=== PATIENT | female | born 1980 | race Caucasian/White ===

== ENCOUNTER 2017-10-23 09:01 | Emergency (ER) | payer SELFPAY ==
[2017-10-23 09:24] VITALS: BMI 23.2
--- NOTE | 2017-10-23 09:55 | PDOC ---
History of Present Illness - General Chief Complaint: Vaginal Bleeding Stated Complaint: 4 WEEKS ABD -PAIN Time Seen by Provider: 10/23/17 09:41 History Source: Patient Exam Limitations: No Limitations - History of Present Illness Travel History: No Initial Comments: 10/23/17 09:52 36-year-old female presents to the ED with painless vaginal bleeding which she states was brownish pink this morning upon urination this morning. Patient states did not pass any large clots and didn't see Gretchen Soto her COAL INSPECTOR last week which confirmed the with your but has not had an ultrasound scheduled for completed as of yet. Patient denies dyspareunia, recent injury, urinary complaints, back pain, or previous vaginal bleeding with pregnancies. Timing/Duration: reports: changing over time Past History - Past Medical History Allergies/Adverse Reactions: Allergies Allergy/AdvReac Type Severity Reaction Status Date / Time No Known Allergies Allergy Verified 10/23/17 09:21 Home Medications: Ambulatory Orders NK [No Known Home Medication] 05/27/16 Asthma: No Cancer: No Cardiac Disorders: No COPD: No DVT: No Diabetes: No HTN: No Seizures: No Thyroid Disease: No - Immunization History Immunization Up to Date: Yes - Suicide/Smoking/Psychosocial Hx Smoking History: Never smoked Have you smoked in the past 12 months: No Information on smoking cessation initiated: No Hx Alcohol Use: No Drug/Substance Use Hx: No Substance Use Type: None Hx Substance Use Treatment: No Patient Lives Alone: No Lives with/in: spouse/SO Review of Systems - Review of Systems Able to Perform ROS?: No Constitutional: No: Symptoms Reported HEENTM: No: Symptoms Reported Respiratory: No: Symptoms reported Cardiac (ROS): No: Symptoms Reported ABD/GI: No: Symptoms Reported : Yes: Discharge. No: Burning, Frequency, Flank Pain Musculoskeletal: No: Symptoms Reported Integumentary: No: Symptoms Reported Neurological: No: Symptoms reported *Physical Exam - Vital Signs Last Vital Signs Temp Pulse Resp BP Pulse Ox 98.4 F 50 L 18 100/56 100 10/23/17 09:21 10/23/17 09:21 10/23/17 09:21 10/23/17 09:21 10/23/17 09:21 - Physical Exam General Appearance: Yes: Nourished, Appropriately Dressed. No: Apparent Distress HEENT: negative: Pale Conjunctivae Neck: positive: Normal Thyroid, Supple Respiratory/Chest: positive: Lungs Clear, Normal Breath Sounds. negative: Respiratory Distress, Accessory Muscle Use Cardiovascular: positive: Regular Rhythm, Bradycardia. negative: Murmur Female Pelvic Exam: positive: cervical os closed, vaginal bleeding (nonodorous scant light brown discharge). negative: CMT, adnexal tenderness Gastrointestinal/Abdominal: positive: Soft. negative: Tenderness Integumentary: positive: Normal Color, Warm, Moist Neurologic: positive: Motor Strength 5/5 (ambulatory) ED Treatment Course - LABORATORY CBC & Chemistry Diagram: 10/23/17 10:00 10/23/17 10:00 - RADIOLOGY Radiology Studies Ordered: Category Date Time Status <14WKS US [US] Stat Ultrasound 10/23/17 09:48 Ordered Medical Decision Making - Medical Decision Making 10/23/17 09:54 Patient here for evaluation of painless vaginal spotting with urination this morning. Patient approximate 4 weeks pain sent LMP. Patient on exam had scant brown discharge in the vault .no CMT. Os closed. Patient ordered for labs, urine along with ultrasound. 10/23/17 11:51 Laboratory Tests 10/23/17 10:00 WBC 5.3 D Hgb 9.3 L D Hct 28.8 L D RDW 17.7 H Neutrophils % 66.9 Ultrasound shows a single live intrauterine 6 weeks 4 days with heart rate of 1 46 bpm. There is also note of a small subchorionic bleed. 10/23/17 12:15 Laboratory Tests 10/23/17 10:00 Urine Blood 1+ H Urine Nitrite Negative Ur Leukocyte Esterase Negative Urine WBC (Auto) Pending Urine RBC (Auto) Pending 10/23/17 13:30 Laboratory Tests 10/23/17 10:00 Sodium 139 Potassium 3.7 Chloride 108 H Carbon Dioxide 21 Anion Gap 10 BUN 9 Creatinine 0.5 L Creat Clearance w eGFR > 60 Random Glucose 79 Calcium 7.9 L Total Bilirubin 0.4 AST 18 ALT 45 Alkaline Phosphatase 56 Total Protein 6.7 Beta HCG, Quant Pending *DC/Admit/Observation/Transfer Diagnosis at time of Disposition: Threatened - Discharge Dispostion Disposition: HOME Condition at time of disposition: Good - Referrals Referrals: Theresa Bailon MD [Primary Care Provider] - Theresa Soto MD [Certified Nurse Aircraft Engineer] - - Patient Instructions Printed Discharge Instructions: DI for Threatened Additional Instructions: The ultrasound shows you are 6 weeks . Please follow up with Dr. Gretchen Soto and take copy of ultrasound and lab work with you. May take Tylenol if you develop any cramping and return to ED if you develop severe vaginal bleeding or abdominal pain Print Language: UZBEK - Post Discharge Activity Forms/Work/School Notes: Back to Work
[2017-10-23 10:47] LABS: BASO % 0.7 % (0-2.0); EOS % 1.8 % (0-4.5); HEMATOCRIT 28.8 % (32.4-45.2); HEMOGLOBIN 9.3 GM/dL (10.7-15.3); LYMPH % 24.1 % (8-40); MCH 21.6 pg (25.7-33.7); MCHC 32.2 g/dl (32.0-36.0); MEAN PLT VOLUME 9.5 fl (7.5-11.1); MONO % 6.5 % (3.8-10.2); NEUT % 66.9 % (42.8-82.8); PLATELET COUNT 140 K/MM3 (134-434); RDW 17.7 % (11.6-15.6); WHITE BLOOD COUNT 5.3 K/mm3 (4.0-10.0)
[2017-10-23 12:12] LABS: URINE APPEARANCE CLEAR; URINE BILIRUBIN NEGATIVE (<2.0 mg/dL); URINE BLOOD 1+ (NEGATIVE); URINE COLOR YELLOW; URINE GLUCOSE (UA) NEGATIVE (NEGATIVE); URINE KETONE NEGATIVE (NEGATIVE); URINE LEUK ESTERASE NEGATIVE (NEGATIVE); URINE NITRITE NEGATIVE (NEGATIVE); URINE PROTEIN NEGATIVE (NEGATIVE); URINE UROBILINOGEN NEGATIVE mg/dL (0.2-1.0)
[2017-10-23 12:14] LABS: EPI CELLS RARE /HPF (FEW); URINE MUCUS MANY
[2017-10-23 12:52] LABS: ALBUMIN 3.3 g/dl (3.4-5.0); ANION GAP 10 (8-16); BILIRUBIN,TOTAL 0.4 mg/dL (0.2-1.0); BLOOD UREA NITROGEN 9 mg/dL (7-18); CALCIUM 7.9 mg/dL (8.5-10.1); CHLORIDE 108 mmol/L (98-107); CO2 21 mmol/L (21-32); CREATININE 0.5 mg/dL (0.55-1.02); GLUCOSE,RANDOM 79 mg/dL (74-106); POTASSIUM 3.7 mmol/L (3.5-5.1); SGOT/AST 18 U/L (15-37); SGPT/ALT 45 U/L (12-78); SODIUM 139 mmol/L (136-145); TOT PROT 6.7 g/dl (6.4-8.2)
[2017-10-23 12:54] LABS: ALK PHOS 56 U/L (45-117)
[2017-10-23 14:01] LABS: ANISOCYTOSIS 1+; PLATELET ESTIMATE DECREASED
[2017-10-23 14:20] VITALS: BP 111/68; PULSE 57; TEMP 98.2
== END 2017-10-23 14:21 | disposition home or self-care (01) ==
LOC: JER 09:01
DX: O26.891 Other specified pregnancy related conditions, first trimester (principal); O20.0 Threatened abortion; Z3A.01 Less than 8 weeks gestation of pregnancy
CPT/HCPCS: 36415; 76830-TC; 80053; 81003; 81015; 84702; 85025; 86850; 86900; 86901; 87086; 99283-25

== ENCOUNTER 2018-06-17 08:15 | Inpatient (IN) | payer OTHER ==
[2018-06-17] MEDS ORDERED: ELECTROLYTE-148 SOLN 1,000 ML IV SCH (09:30)
[2018-06-17] MEDS ORDERED: BUTORPHANOL TARTRATE 1 MG/ML VIAL IVPB PRN (09:48)
[2018-06-17 10:12] VITALS: BMI 33.8
[2018-06-17 10:45] LABS: BASO % 0.7 % (0-2.0); EOS % 0.8 % (0-4.5); HEMATOCRIT 26.8 % (32.4-45.2); HEMOGLOBIN 8.5 GM/dL (10.7-15.3); LYMPH % 22.8 % (8-40); MCH 21.4 pg (25.7-33.7); MCHC 31.8 g/dl (32.0-36.0); MEAN CELL VOLUME 67.1 fl (80-96); MEAN PLT VOLUME 10.1 fl (7.5-11.1); MONO % 4.9 % (3.8-10.2); NEUT % 70.8 % (42.8-82.8); PLATELET COUNT 142 K/MM3 (134-434); RBC 3.99 M/mm3 (3.60-5.2); WHITE BLOOD COUNT 5.5 K/mm3 (4.0-10.0)
[2018-06-17 10:56] LABS: INR 0.95 (0.83-1.09); PROTHROMBIN TIME (PATIENT) 11.2 SEC (9.7-13.0)
[2018-06-17 10:59] LABS: ACTIVATED PTT 25.3 SECONDS (25.2-36.5)
[2018-06-17] MEDS ORDERED: MISOPROSTOL 100 MCG TABLET PO ONE (11:00)
[2018-06-17 11:08] LABS: ANION GAP 9 MMOL/L (8-16); BLOOD UREA NITROGEN 8 mg/dL (7-18); CALCIUM 8.1 mg/dL (8.5-10.1); CHLORIDE 109 mmol/L (98-107); CO2 20 mmol/L (21-32); CREATININE 0.5 mg/dL (0.55-1.3); GLUCOSE,RANDOM 81 mg/dL (74-106); POTASSIUM 3.6 mmol/L (3.5-5.1); SODIUM 138 mmol/L (136-145)
--- NOTE | 2018-06-17 12:39 | HP ---
Past Medical History - Admission Chief Complaint: IOL History of Present Illness: 37yo @ 41.0wks here for IOL for postdates. No VB/LOF. No ctx. +FM Preg c/b AMA, grand multiparity History Source: Patient Limitations to Obtaining History: No Limitations - Past Medical History Cardiovascular: No: AFIB, Aneurysm, Aortic Insufficiency, Aortic Stenosis, CAD, CHF, Deep Vein Thrombosis, HTN, Hyperlipdemia, PR, Mitral Insufficiency, Mitral Stenosis, Murmur, Pulmonary Hypertension, Other Pulmonary: No: Asthma, Bronchitis, Cancer, COPD, O2 Dependent, Pneumonia, Previously Intubated, Pulmonary Embolus, Pulmonary Fibrosis, Sleep Apnea, Other Gastrointestinal: No: Ascites, Cancer, Constipation, Crohn's Disease, Diverticulitis, Diverticulosis, Esophageal Varices, Gastritis, GERD, GI Bleed, Hemorrhoids, Hiatal Hernia, Inflamatory Bowel Disease, Irritable Bowel Disease, Pancreatitis, Peptic Ulcer Disease, Ulcerative Colitis, Other ...: 7 ...Para: 5 ...Term: 5 ...: 0 ...Spon : 1 ...Induced : 0 ...Multiple Gestation: 0 ...LMP: 09/12/17 ... Weeks Gestation by Dates: 39.5 ...EDC by Dates: 06/19/18 ...EDC by Sono: 06/10/18 Heme/Onc: Yes: Anemia - Past Surgical History Past Surgical History: Yes: None Hx Myomectomy: No Hx Transabdominal Cerclage: No - Smoking History Smoking history: Never smoked Have you smoked in the past 12 months: No - Alcohol/Substance Use Hx Alcohol Use: No History of Substance Use: reports: None - Social History ADL: Independent History of Recent Travel: No Home Medications - Allergies Allergies/Adverse Reactions: Allergies Allergy/AdvReac Type Severity Reaction Status Date / Time No Known Allergies Allergy Verified 06/17/18 08:45 - Home Medications Home Medications: Ambulatory Orders Pnv No.95/Ferrous Fum/Folic AC [ Vitamin Tablet] 1 each PO DAILY Review of Systems - Review of Systems Constitutional: denies: No Symptoms, Chills, Diaphoresis, Fever, Lethargy, Loss of Appetite, Malaise, Night Sweats, Unintentional Wgt. Loss, Weakness, Other Cardiovascular: denies: No Symptoms, Chest Pain, Edema, Palpitations, Shortness of Breath, Other Respiratory: denies: No Symptoms, Cough, Exercise Intolerance, Hemoptysis, Orthopnea, PND, Snoring, SOB, SOB on Exertion, Wheezing, Other Gastrointestinal: denies: No Symptoms, Abdominal Pain, Bloating, Constipation, Diarrhea, Dysphagia, Indigestion, Melena, Nausea, Rectal Bleeding, Vomiting, Vomiting Blood, Other Physical Exam - Maternity Vital Signs: Vital Signs Temperature 97.9 F 06/17/18 08:15 Pulse Rate 77 06/17/18 12:00 Respiratory Rate 20 06/17/18 12:00 Blood Pressure 131/82 06/17/18 12:00 O2 Sat by Pulse Oximetry (%) Constitutional: Yes: Well Nourished, No Distress, Calm Eyes: Yes: WNL, Conjunctiva Clear, EOM Intact - Abdominal Exam/OB Number of Fetuses: Single Presentation: Vertex Contractions: No Monitor Mode: External Heart Rate Location: [facility] Accelerations: Uniform - Vaginal Exam/OB Vaginal Bleediing: No Speculum Exam: No Dilatation (cm): 1 Effacement (%): 0 Amniotic Membrane Status: Intact Presentation: Vertex/Position Station: -3 - Physical Exam Edema: No - Labs Lab Results: CBC, BMP 06/17/18 10:00 06/17/18 10:00 Assessment/Plan 37yo @ 41.0wks here for IOL for postdates Admit to L&D Cytotec po x 1, then AROM/pitocin Epidural/stadol prn Cat I tracing Anticipate ELIZABETH Dong MD
[2018-06-17] MEDS ORDERED: OXYTOCIN 30 UNITS in 0.9% NS 30 UNIT/500 ML INFUS.BAG IVPB SCH (12:45)
--- NOTE | 2018-06-17 13:38 | PN ---
Progress Note, Labor Vaginal Exam #1 Labor Exam Date: 06/17/18 Heart Rate (range): Cat I Dilatation: 2 Effacement (%): 50 Amniotic Membrane Status: Ruptured Presentation: Vertex/Position Station: -3 Remarks: Comfortable with cramping/ctx AROM, scant fluid Cat I tracing Anticipate Edilia Dong MD
[2018-06-17 13:45] LABS: ANISOCYTOSIS 2+; MACROCYTOSIS 0; OVALOCYTE 1+; PLATELET ESTIMATE DECREASED
[2018-06-17] MEDS ORDERED: OXYTOCIN 30 UNITS in 0.9% NS 30 UNIT/500 ML INFUS.BAG IVPB ONE (15:22)
--- NOTE | 2018-06-17 15:24 | PN ---
Progress Note, Labor Vaginal Exam #2 Labor Exam Date: 06/17/18 Heart Rate (range): Cat I Dilatation: 3 Effacement (%): 50 Amniotic Membrane Status: Ruptured Presentation: Vertex/Position Station: -3 Remarks: Pt reports ctx pain now 12/19. Declines stadol/epidural IUPC placed given concern of possible tachysystole. Reg ctx but not adequate, start low dose pitocin Anticipate Mitesh Dong MD
--- NOTE | 2018-06-17 17:20 | PN ---
Progress Note, Labor Vaginal Exam #3 Labor Exam Date: 06/17/18 Heart Rate (range): Cat I Dilatation: 6 Effacement (%): 50 Amniotic Membrane Status: Ruptured Presentation: Vertex/Position Station: -3 Remarks: Pt uncomfortable; declined pain medication Pit at 1mu, increased to 2mu Edilia Dong MD
--- NOTE | 2018-06-17 18:39 | PN ---
Progress Note, Labor Vaginal Exam #4 Labor Exam Date: 06/17/18 Heart Rate (range): Cat I, early decels Dilatation: 4 Effacement (%): 50 Amniotic Membrane Status: Ruptured Presentation: Vertex/Position Station: -3 Remarks: Still very uncomfortable. Declining pain meds Cat I tracing, early decels Cervix now 4cm, head still very high and no descent Continue current care
[2018-06-17] MEDS ORDERED: BUTORPHANOL TARTRATE 1 MG/ML VIAL IVPB ONE (19:36)
--- NOTE | 2018-06-17 19:36 | PN ---
Progress Note, Labor Vaginal Exam #5 Labor Exam Date: 06/17/18 Heart Rate (range): Cat I Dilatation: 6 Effacement (%): 50 Amniotic Membrane Status: Ruptured Presentation: Vertex/Position Station: -3 Remarks: Pt very uncomfortable, states 10/10 Requesting pain medicine; will give one dose of stadol Good cervical change
[2018-06-17] MEDS ORDERED: PROMETHAZINE HCL 25 MG/1 ML VIAL ONE (19:37)
[2018-06-17] MEDS ORDERED: OXYTOCIN 20 UNITS in 0.9% NS 20 UNIT/1,000 ML INFUS.BAG IV ONE (21:18)
[2018-06-17] MEDS ORDERED: BENZOCAINE 20% 57 GM BOTTLE TP PRN (21:33)
[2018-06-17] MEDS ORDERED: BENZOCAINE 28 GM HEMORRHOIDAL OINTMENT TP PRN (21:33)
[2018-06-17] MEDS ORDERED: BISACODYL 10 MG SUPP.RECT RC PRN (21:33)
[2018-06-17] MEDS ORDERED: WITCH HAZEL 50% (TUCKS) 40 PAD/JAR PAD TP PRN (21:33)
[2018-06-17] MEDS ORDERED: METHYLERGONOVINE MALEATE 0.2 MG/1 ML AMP IM PRN (21:33)
--- NOTE | 2018-06-17 21:33 | PN ---
Delivery - Delivery Vaginal Delivery: Spontaneous Type of Anesthesia: None Episiotomy/Laceration: None EBL (cc): 400 Delivery, Single - Stages of Labor Placenta: Yes: Spontaneous - Condition of Gender: Female Position: Right, OA - Feeding Plan Initial Plan: Elected not to breastfeed exclusively throughout hospitalization Remarks - Remarks Remarks: of VFI from MOUNA position over intact perineum. No regional anesthesia. Spontaneous delivery of anterior shoulder. Cord clamped and cut. Infant placed on maternal abdomen. Weight pending. Apgars 9/9. Spontaneous delivery of intact placenta with 3VC. Perineum inspected, no lacerations Fundus firm, EBL 400. Mother and baby doing well. Edilia Dong MD
[2018-06-17] MEDS ORDERED: OXYTOCIN 20 UNITS in 0.9% NS 20 UNIT/1,000 ML INFUS.BAG IV SCH (21:45)
[2018-06-18] MEDS ORDERED: OXYTOCIN 20 UNITS in 0.9% NS 20 UNIT/1,000 ML INFUS.BAG IV ONE (00:05)
[2018-06-18] MEDS: FERROUS SO4 325 MG TABLET (FP) PO SCH ×3 (08:19→18:26)
[2018-06-18 09:14] LABS: BASO % 0.6 % (0-2.0); EOS % 0.1 % (0-4.5); HEMOGLOBIN 8.2 GM/dL (10.7-15.3); LYMPH % 12.4 % (8-40); MCH 21.4 pg (25.7-33.7); MCHC 31.5 g/dl (32.0-36.0); MEAN PLT VOLUME 10.4 fl (7.5-11.1); MONO % 3.8 % (3.8-10.2); NEUT % 83.1 % (42.8-82.8); PLATELET COUNT 145 K/MM3 (134-434); RBC 3.83 M/mm3 (3.60-5.2); RDW 19.1 % (11.6-15.6); WHITE BLOOD COUNT 11.2 K/mm3 (4.0-10.0)
--- NOTE | 2018-06-18 10:03 | PN ---
Post Progress Note Type of Delivery: Vital Signs: Vital Signs Temperature 98.1 F 06/18/18 05:42 Pulse Rate 59 L 06/18/18 05:42 Respiratory Rate 18 06/18/18 05:42 Blood Pressure 112/62 06/18/18 05:42 O2 Sat by Pulse Oximetry (%) 100 06/17/18 23:15 Uterus: Yes: Fundus below umbilicus Abdomen/GI: Yes: Abdomen soft Lochia: Yes: Rubra Lochia, amount: Small Extremities: Yes: Calves non-tender Perineum: Yes: Intact - Labs Labs: CBC WBC 11.2 K/mm3 (4.0-10.0) H 06/18/18 08:00 RBC 3.83 M/mm3 (3.60-5.2) 06/18/18 08:00 Hgb 8.2 GM/dL (10.7-15.3) L 06/18/18 08:00 Hct 26.0 % (32.4-45.2) L 06/18/18 08:00 MCV 68.0 fl (80-96) L 06/18/18 08:00 MCH 21.4 pg (25.7-33.7) L 06/18/18 08:00 MCHC 31.5 g/dl (32.0-36.0) L 06/18/18 08:00 RDW 19.1 % (11.6-15.6) H 06/18/18 08:00 Plt Count 145 K/MM3 (134-434) 06/18/18 08:00 MPV 10.4 fl (7.5-11.1) 06/18/18 08:00 Absolute Neuts (auto) 9.3 K/mm3 (1.5-8.0) H 06/18/18 08:00 Neutrophils % 83.1 % (42.8-82.8) H 06/18/18 08:00 Lymphocytes % 12.4 % (8-40) D 06/18/18 08:00 Monocytes % 3.8 % (3.8-10.2) 06/18/18 08:00 Eosinophils % 0.1 % (0-4.5) D 06/18/18 08:00 Basophils % 0.6 % (0-2.0) 06/18/18 08:00 Nucleated RBC % 0 % (0-0) 06/18/18 08:00 Hypochromia 1+ 06/17/18 10:00 Platelet Estimate Decreased 06/17/18 10:00 Polychromasia 1+ 06/17/18 10:00 Poikilocytosis 1+ 06/17/18 10:00 Anisocytosis 2+ 06/17/18 10:00 Microcytosis 2+ 06/17/18 10:00 Macrocytosis 0 06/17/18 10:00 Ovalocytes 1+ 06/17/18 10:00 Assessment/Plan 37yo s/p , PPD2 Routine PP care Labs reviewed, iron OOB, ambulate Anticipate dc ppd2 Mitesh Dong MD
[2018-06-18] MEDS: PRENATAL VITAMINS W/ FOLIC ACID TABLET (FP) PO SCH (10:21)
[2018-06-18] MEDS ORDERED: DIPHTH,PERTUSS(ACELL),TET 0.5 ML DISP.SYRIN IM ONE (11:00)
[2018-06-18] MEDS: ACETAMINOPHEN 325 MG TABLET (FP) PO PRN (13:05)
[2018-06-18] MEDS: IBUPROFEN 600 MG TABLET (FP) PO PRN (13:06)
[2018-06-18] MEDS ORDERED: SENNOSIDES/DOCUSATE COMBO (SENNA PLUS) TABLET (UD) PO PRN (22:00)
--- NOTE | 2018-06-19 06:46 | PN ---
Progress Note (short form) - Note Progress Note: ppd 2 ,no c/o , no excess vaginal bleeding, no active vaginal bleeding Last Vital Signs Temp Pulse Resp BP Pulse Ox 98.4 F 69 20 119/54 L 100 06/18/18 21:06 06/18/18 21:06 06/18/18 21:06 06/18/18 21:06 06/17/18 23:15 abdomen soft, uterus firm, non tender lochia mild no calf tenderness impression anemia , asymptomatic , advised iron, vit CBC, BMP 06/18/18 08:00 06/17/18 10:00
[2018-06-19] MEDS: FERROUS SO4 325 MG TABLET (FP) PO SCH ×2 (08:31→12:08)
--- NOTE | 2018-06-19 08:47 | DS ---
Physical Examination Vital Signs: Vital Signs Temperature 98.4 F 06/18/18 21:06 Pulse Rate 69 06/18/18 21:06 Respiratory Rate 20 06/18/18 21:06 Blood Pressure 119/54 L 06/18/18 21:06 O2 Sat by Pulse Oximetry (%) 100 06/17/18 23:15 Constitutional: Yes: Well Nourished, No Distress, Calm Eyes: Yes: WNL, Conjunctiva Clear, EOM Intact HENT: Yes: WNL, Atraumatic, Normocephalic Neck: Yes: WNL, Supple, Trachea Midline Cardiovascular: Yes: WNL, Regular Rate and Rhythm Respiratory: Yes: WNL, Regular, CTA Bilaterally Gastrointestinal: Yes: WNL, Normal Bowel Sounds Musculoskeletal: Yes: WNL Extremities: Yes: WNL Edema: No Integumentary: Yes: WNL Neurological: Yes: WNL, Alert, Oriented ...Motor Strength: WNL Psychiatric: Yes: WNL Labs: CBC, BMP 06/18/18 08:00 06/17/18 10:00 Discharge Summary Reason For Visit: INDUCTION OF LABOR Current Active Problems (normal spontaneous vaginal delivery) (Acute) Procedures: Principal: Hospital Course: Patient presented for IOL for postdates She had an uncomplicated She met all milestones She was discharged home on PPD#2 MD Charly Condition: Stable - Instructions Diet, Activity, Other Instructions: Regular Diet Referrals: Edilia Dong MD [Staff Physician] - Disposition: HOME - Home Medications Comprehensive Discharge Medication List: Ambulatory Orders Pnv No.95/Ferrous Fum/Folic AC [ Vitamin Tablet] 1 each PO DAILY Ferrous Sulfate [Feosol] 325 mg PO DAILY #30 tablet 06/18/18 Ibuprofen 600 mg PO Q6H PRN #30 tablet 06/18/18
[2018-06-19] MEDS: IBUPROFEN 600 MG TABLET (FP) PO PRN (10:46)
[2018-06-19] MEDS: ACETAMINOPHEN 325 MG TABLET (FP) PO PRN (10:47)
[2018-06-19] MEDS: PRENATAL VITAMINS W/ FOLIC ACID TABLET (FP) PO SCH (10:48)
[2018-06-19 12:58] VITALS: BP 112/64; PULSE 64; TEMP 98.2
== END 2018-06-19 12:30 | disposition home or self-care (01) | DRG 560 ==
LOC: JLDR 08:15 → J3W 06-18 00:15
PROVIDERS: ADMIT Obstetrics & Gynecology; ATTEND Obstetrics & Gynecology
PROC: 10E0XZZ Delivery of Products of Conception, External Approach (ICD-10-PCS; principal; 2018-06-17)
DX: O48.0 Post-term pregnancy (principal); Z3A.41 41 weeks gestation of pregnancy; Z37.0 Single live birth
CPT/HCPCS: 36415; 59409; 80048; 85025; 85610; 85730; 86593; 86850; 86900; 86901; 90715

== ENCOUNTER 2018-10-30 04:07 | Emergency (ER) | payer SELFPAY ==
[2018-10-30 04:22] VITALS: BMI 32.2
--- NOTE | 2018-10-30 04:28 | PDOC ---
History of Present Illness - General Chief Complaint: Vomiting/Diarrhea Stated Complaint: CHEST PAIN/DIARRHEA/VOMITING - History of Present Illness Initial Comments: The pt is a 37F w/ no reported PMH who presents for 3 days of abdominal/chest pain. The pain is pressure/cramping, epigastric/R chest, non-radiating, associated with nausea and NBNB vomiting x1 and NB diarrhea x3, and not alleviated by anything she can identify. The pain is worse post-prandially but she denies pale stools. She has not tried taking anything for her symptoms. She denies fevers/chills, SOB, dysuria, hematuria, blood in her urine or stool, or changes in sensation. 10/30/18 04:42 Past History - Past Medical History Allergies/Adverse Reactions: Allergies Allergy/AdvReac Type Severity Reaction Status Date / Time No Known Allergies Allergy Verified 10/30/18 04:20 Home Medications: Ambulatory Orders Ferrous Sulfate [Feosol] 325 mg PO DAILY #30 tablet 06/18/18 Ibuprofen 600 mg PO Q6H PRN #30 tablet 06/18/18 Asthma: No Cancer: No Cardiac Disorders: No COPD: No DVT: No Diabetes: No HTN: No Seizures: No Thyroid Disease: No - Reproductive History (#): 6 Para: 5 Spontaneous : 0 - Immunization History Immunization Up to Date: Yes - Suicide/Smoking/Psychosocial Hx Smoking History: Never smoked Have you smoked in the past 12 months: No Information on smoking cessation initiated: No Hx Alcohol Use: No Drug/Substance Use Hx: No Substance Use Type: None Hx Substance Use Treatment: No Review of Systems - Review of Systems Able to Perform ROS?: Yes Comments:: GENERAL/CONSTITUTIONAL: No fever or chills. No weakness HEAD, EYES, EARS, NOSE AND THROAT: No change in vision. No ear pain or discharge. No sore throat CARDIOVASCULAR: No shortness of breath RESPIRATORY: Denies cough, hemoptysis GENITOURINARY: No dysuria, frequency, or change in urination MUSCULOSKELETAL: No joint or muscle swelling or pain. No neck or back pain SKIN: No rash NEUROLOGIC: No headache, vertigo, loss of consciousness, or change in strength/ sensation ENDOCRINE: No increased thirst. No abnormal weight change HEMATOLOGIC/LYMPHATIC: No anemia, easy bleeding, or history of blood clots ALLERGIC/IMMUNOLOGIC: No hives or skin allergy 10/30/18 04:26 *Physical Exam - Vital Signs Last Vital Signs Temp Pulse Resp BP Pulse Ox 98.4 F 60 16 124/74 100 10/30/18 04:10/30/18 04:10/30/18 04:21 10/30/18 04:10/30/18 04:21 - Physical Exam Comments: GENERAL: Awake, alert, and oriented to person/place/time, in no acute distress HEAD: No signs of trauma, normocephalic, atraumatic EYES: PERRLA, EOMI, sclera anicteric, conjunctiva clear ENT: Hearing grossly normal, nares patent, oropharynx clear without exudates. No uvular deviation. Moist mucosa LUNGS: No distress, speaks in full sentences, clear to auscultation bilaterally HEART: Regular rate and rhythm, normal S1 and S2, no murmurs appreciated, peripheral pulses normal and equal bilaterally ABDOMEN: Soft, RUQ/epigastric TTP w/o rebound or guarding, normoactive bowel sounds EXTREMITIES: Normal inspection, Normal range of motion, no edema. No clubbing or cyanosis NEUROLOGICAL: Cranial nerves II through XII grossly intact. Normal speech, no focal sensorimotor deficits SKIN: Warm, Dry 10/30/18 04:26 ED Treatment Course - LABORATORY CBC & Chemistry Diagram: 10/30/18 04:40 10/30/18 04:40 Medical Decision Making - Medical Decision Making The pt is a 37F w/ no reported PMH who presents for evaluation of 3 days of RUQ/ epigastric abdominal/chest pain that is described as crampy/pressure that is worse post-prandially Ddx includes biliary disease, pancreatitis, consider acs, PNA, gastritis, gastroenteritis, viral syndrome ED Course CMP, CBC, Lipase, Trop I ECG CXR, RUQ US Ofirmev, Zofran, IVF 10/30/18 04:47 Pt pending results/imaging/dispo Pt signed out to Dr. Livingston *DC/Admit/Observation/Transfer Diagnosis at time of Disposition: Abdominal pain Qualifiers: Abdominal location: right upper quadrant Qualified Code(s): R10.11 - Right upper quadrant pain Nausea & vomiting Qualifiers: Vomiting type: unspecified Vomiting Intractability: non-intractable Qualified Code(s): R11.2 - Nausea with vomiting, unspecified Diarrhea Qualifiers: Diarrhea type: unspecified type Qualified Code(s): R19.7 - Diarrhea, unspecified Chest pain Qualifiers: Chest pain type: unspecified Qualified Code(s): R07.9 - Chest pain, unspecified - Referrals - Patient Instructions - Post Discharge Activity
[2018-10-30] MEDS ORDERED: SODIUM CHLORIDE 0.9% 500 ML INFUS.BAG IV ONE (04:40)
[2018-10-30] MEDS ORDERED: ONDANSETRON 4 MG/2 ML VIAL IVPUSH ONE (04:40)
[2018-10-30] MEDS ORDERED: ACETAMINOPHEN 1000 MG/100 ML VIAL (NON FORMULARY) IVPB ONE (04:40)
--- NOTE | 2018-10-30 04:51 | PDOC ---
Attending Attestation - Resident Resident Name: Mick Mistry - ED Attending Attestation I have performed the following: I have examined & evaluated the patient, The case was reviewed & discussed with the resident, I agree w/resident's findings & plan, Exceptions are as noted - HPI HPI: 10/30/18 04:48 37y F no pmhx presents with 3 days of epigastric/ruq cp that is intermittent and described as burning/pressure, nonradiating. Not releated to food intake. Associated with nbnb vomiting, 3 episodes of nonb loody stool. No sick contacts or travel. Recalls one episode in the past that resolved spontaneously - Physicial Exam PE: 10/30/18 06:58 Exam: General: well appearing, no distress Abd: soft minimal tenderness to RUQ, no rebound/guarding Heart Score/ECG Review - ECG Impressions Comment:: 10/30/18 04:52 Twelve-lead EKG was performed and reviewed by me. There is normal sinus rhythm with a normal rate. rate of 62 The axis is normal. no st changes suggestive ofa cute ischemia
[2018-10-30] MEDS ORDERED: ONDANSETRON 4 MG/2 ML VIAL ONE (04:57)
[2018-10-30] MEDS ORDERED: ACETAMINOPHEN INJECTION 100 ML IVPB ONE (04:57)
[2018-10-30 05:32] LABS: BASO % 0.4 % (0-2.0); EOS % 0.8 % (0-4.5); HEMATOCRIT 32.6 % (32.4-45.2); HEMOGLOBIN 10.6 GM/dL (10.7-15.3); LYMPH % 12.8 % (8-40); MCH 23.1 pg (25.7-33.7); MCHC 32.4 g/dl (32.0-36.0); MEAN CELL VOLUME 71.4 fl (80-96); MEAN PLT VOLUME 9.9 fl (7.5-11.1); MONO % 4.7 % (3.8-10.2); NEUT % 81.3 % (42.8-82.8); RBC 4.57 M/mm3 (3.60-5.2); RDW 15.9 % (11.6-15.6); WHITE BLOOD COUNT 8.7 K/mm3 (4.0-10.0)
[2018-10-30 05:46] LABS: ALBUMIN 3.4 g/dl (3.4-5.0); BILIRUBIN,TOTAL 0.2 mg/dL (0.2-1); BLOOD UREA NITROGEN 15.5 mg/dL (7-18); CALCIUM 8.7 mg/dL (8.5-10.1); CREATININE 0.7 mg/dL (0.55-1.3); POTASSIUM 3.6 mmol/L (3.5-5.1); TOT PROT 6.6 g/dl (6.4-8.2)
[2018-10-30 06:07] LABS: LIPASE 272 U/L (73-393)
[2018-10-30 06:54] LABS: PLATELET COUNT 163 K/MM3 (134-434)
--- NOTE | 2018-10-30 07:29 | PDOC ---
*Physical Exam - Vital Signs Last Vital Signs Temp Pulse Resp BP Pulse Ox 98.4 F 60 16 124/74 100 10/30/18 04:21 10/30/18 04:21 10/30/18 04:21 10/30/18 04:21 10/30/18 04:21 ED Treatment Course - LABORATORY CBC & Chemistry Diagram: 10/30/18 04:40 10/30/18 04:40 - ADDITIONAL ORDERS Additional order review: Laboratory Results 10/30/18 10/30/18 10/30/18 04:40 04:40 04:40 Sodium 141 Potassium 3.6 Chloride 109 H Carbon Dioxide 24 Anion Gap 8 BUN 15.5 Creatinine 0.7 Est GFR (CKD-EPI)AfAm 128.28 Est GFR (CKD-EPI)NonAf 110.69 Random Glucose 118 H Calcium 8.7 Total Bilirubin 0.2 AST 27 ALT 35 Alkaline Phosphatase 94 Troponin I < 0.02 Total Protein 6.6 Albumin 3.4 Lipase 272 Serum , Qual Negative 10/30/18 04:40 RBC 4.57 MCV 71.4 L MCHC 32.4 RDW 15.9 H D MPV 9.9 Neutrophils % 81.3 Lymphocytes % 12.8 Monocytes % 4.7 Eosinophils % 0.8 D Basophils % 0.4 - Medications Given in the ED: ED Medications Discontinued Medications Generic Name Dose Route Start Last Admin Trade Name Marquez PRN Reason Stop Dose Admin Acetaminophen 1,000 mg 10/30/18 04:40 10/30/18 05:14 Ofirmev Injection - IVPB 10/30/18 04:41 1,000 mg ONCE ONE Administration Ondansetron HCl 4 mg 10/30/18 04:40 10/30/18 05:15 Zofran Injection IVPUSH 10/30/18 04:41 4 mg ONCE ONE Administration Sodium Chloride 1,000 ml 10/30/18 04:40 10/30/18 05:14 Normal Saline - IV 10/30/18 04:41 1,000 ml ONCE ONE Administration Medical Decision Making - Medical Decision Making 10/30/18 07:28 Pt signed out to me by Dr. Mistry. 37 year old female presented to ED for RUQ pain. Initial Vital Signs Temp Pulse Resp BP Pulse Ox 98.4 F 60 16 124/74 100 10/30/18 04:21 10/30/18 04:21 10/30/18 04:21 10/30/18 04:21 10/30/18 04:21 Afebrile. No tachycardia. No tachypnea. No hypotension. No hypoxia on room air. EKG performed at 0429: rate 62, regular rhythm, normal axis, normal intervals, no acute ST changes. CBC WBC 8.7 K/mm3 (4.0-10.0) 10/30/18 04:40 RBC 4.57 M/mm3 (3.60-5.2) 10/30/18 04:40 Hgb 10.6 GM/dL (10.7-15.3) L 10/30/18 04:40 Hct 32.6 % (32.4-45.2) D 10/30/18 04:40 MCV 71.4 fl (80-96) L 10/30/18 04:40 MCH 23.1 pg (25.7-33.7) L 10/30/18 04:40 MCHC 32.4 g/dl (32.0-36.0) 10/30/18 04:40 RDW 15.9 % (11.6-15.6) H D 10/30/18 04:40 Plt Count 163 K/MM3 (134-434) 10/30/18 04:40 MPV 9.9 fl (7.5-11.1) 10/30/18 04:40 Absolute Neuts (auto) 7.0 K/mm3 (1.5-8.0) 10/30/18 04:40 Neutrophils % 81.3 % (42.8-82.8) 10/30/18 04:40 Lymphocytes % 12.8 % (8-40) 10/30/18 04:40 Monocytes % 4.7 % (3.8-10.2) 10/30/18 04:40 Eosinophils % 0.8 % (0-4.5) D 10/30/18 04:40 Basophils % 0.4 % (0-2.0) 10/30/18 04:40 Nucleated RBC % 0 % (0-0) 10/30/18 04:40 No leukocytosis. Mild microcytic anemia. CMP Sodium 141 mmol/L (136-145) 10/30/18 04:40 Potassium 3.6 mmol/L (3.5-5.1) 10/30/18 04:40 Chloride 109 mmol/L (98-107) H 10/30/18 04:40 Carbon Dioxide 24 mmol/L (21-32) 10/30/18 04:40 Anion Gap 8 MMOL/L (8-16) 10/30/18 04:40 BUN 15.5 mg/dL (7-18) 10/30/18 04:40 Creatinine 0.7 mg/dL (0.55-1.3) 10/30/18 04:40 Est GFR (CKD-EPI)AfAm 128.28 10/30/18 04:40 Est GFR (CKD-EPI)NonAf 110.69 10/30/18 04:40 Random Glucose 118 mg/dL (74-106) H 10/30/18 04:40 Calcium 8.7 mg/dL (8.5-10.1) 10/30/18 04:40 Total Bilirubin 0.2 mg/dL (0.2-1) 10/30/18 04:40 AST 27 U/L (15-37) 10/30/18 04:40 ALT 35 U/L (13-61) 10/30/18 04:40 Alkaline Phosphatase 94 U/L (45-117) 10/30/18 04:40 Troponin I < 0.02 ng/ml (0.00-0.05) 10/30/18 04:40 Total Protein 6.6 g/dl (6.4-8.2) 10/30/18 04:40 Albumin 3.4 g/dl (3.4-5.0) 10/30/18 04:40 Lipase 272 U/L (73-393) 10/30/18 04:40 Serum , Qual Negative 10/30/18 04:40 No electrolyte abnormalities. No Lj. No transamintiis. Lipase wnl. Troponin undetectable. Pending RUQ US. 10/30/18 10:24 Urine Test Results Urine Color Yellow 10/30/18 07:50 Urine Appearance Clear 10/30/18 07:50 Urine pH 6.5 (5.0-8.0) 10/30/18 07:50 Ur Specific [place] 1.014 (1.010-1.035) 10/30/18 07:50 Urine Protein Negative (NEGATIVE) 10/30/18 07:50 Urine Glucose (UA) Negative (NEGATIVE) 10/30/18 07:50 Urine Ketones Negative (NEGATIVE) 10/30/18 07:50 Urine Blood Negative (NEGATIVE) 10/30/18 07:50 Urine Nitrite Negative (NEGATIVE) 10/30/18 07:50 Urine Bilirubin Negative (NEGATIVE) 10/30/18 07:50 Ur Leukocyte Esterase 3+ (NEGATIVE) H 10/30/18 07:50 WBC>5 UTI. Medications ordered: Keflex 500 mg PO once 10/30/18 10:28 RUQ US report: Right upper quadrant pain. Right upper abdomen ultrasound. Compared to prior CT scan of the abdomen pelvis dated 02/26/2015 The liver is within normal limits in size measuring 14.9 cm in sagittal length with mild increased echotexture. Gallbladder is adequately distended with an echogenic density at the level of the neck measuring 5 mm likely representing a stone. Mucosal fold is present at the fundus. There is mild thickening of the gallbladder wall measuring 4 mm. No pericholecystic free fluid is present. No intra or extrahepatic bile duct dilatation is seen. The right kidney measures 11.5 cm sagittal length with mild dilatation of the renal pelvis. No gross renal stones are identified. Visualized portion of the pancreas appears unremarkable Visualized portion of the proximal abdominal aorta and inferior vena cava appear unremarkable. Normal flow in the main portal vein. IMPRESSION: Fatty liver versus hepatocellular disease. Please correlate with liver enzymes. Gallstones with mild thickening of its wall and without evidence of pericholecystic free fluid. Correlate clinically to determine further evaluation. Mild dilatation of the right renal pelvis with suggestion of mild hydronephrosis Pt informed of results and need for follow up with PCP/General surgery. Pt agreed with plan for care and expressed understanding. Pt discharged. *DC/Admit/Observation/Transfer Diagnosis at time of Disposition: Abdominal pain Qualifiers: Abdominal location: right upper quadrant Qualified Code(s): R10.11 - Right upper quadrant pain Nausea & vomiting Qualifiers: Vomiting type: unspecified Vomiting Intractability: non-intractable Qualified Code(s): R11.2 - Nausea with vomiting, unspecified Diarrhea Qualifiers: Diarrhea type: unspecified type Qualified Code(s): R19.7 - Diarrhea, unspecified Chest pain Qualifiers: Chest pain type: unspecified Qualified Code(s): R07.9 - Chest pain, unspecified - Discharge Dispostion Disposition: HOME Condition at time of disposition: Stable Decision to Admit order: No - Prescriptions Prescriptions: Cephalexin Monohydrate [Keflex -] 500 mg PO BID 7 Days #14 capsule - Referrals Referrals: Javier Cheema MD [Staff Physician] - James Cruz MD [Staff Physician] - Cory Bowie MD [Staff Physician] - - Patient Instructions Printed Discharge Instructions: DI for Gallstones, DI for Urinary Tract Infection (UTI), DI for Abdominal Pain-Adult, DI for Nonalcoholic Fatty Liver Disease Additional Instructions: Your lab work was normal. Your urine analysis revealed a urinary tract infection. Your ultrasound showed gall stones and fatty liver. Follow up with your primary care doctor and a General Surgeon on these findings. I have sent a prescription to your pharmacy for an antibiotic, pick it up today and take as advised on label. Follow up with your primary care doctor within 3 days, your care is not complete until you follow up. Bring all paperwork given to you today to your appointment. Follow up with a General Surgeon within 7 days, your care is not complete until you follow up. Bring all paperwork given to you today to your appointment. I have provided you with multiple referrals. Return to the Emergency Department for fever>100F, chest pain, shortness of breath, vomiting, lightheadedness like you may pass out, palpitations, severe back pain, or any other new, worsening or concerning symptoms. S[place]TH [place]ICAN TRANSLATION PROVIDED VIA [employer] TRANSLATION Tu trabajo de laboratorio fue normal. Darden anlisis de orina revel ben infeccin del tracto urinario. Darden ecografa mostr clculos biliares e hgado graso. Anne un seguimiento con darden mdico de atencin primaria y un cirujano general sobre estos hallazgos. He enviado ben receta a darden farmacia para un antibitico, recjala hoy y tmela segn las indicaciones de la etiqueta. Anne un seguimiento con darden mdico de atencin primaria dentro de los 3 melendez, darden atencin no estar completa hasta que realice el seguimiento. Lleve todos los documentos que se le entreguen hoy a darden bowen. Anne un seguimiento con un cirujano general dentro de los 7 melendez, darden atencin no estar completa hasta que realice el seguimiento. Lleve todos los documentos que se le entreguen hoy a darden bowen. Te he proporcionado mltiples referencias. Regrese al Departamento de Emergencias para la fiebre> 100F, dolor de pecho, falta de aliento, vmitos, mareos megan si pudiera desmayarse, palpitaciones, dolor de espalda gabriela o cualquier otro sntoma nuevo, que empeore o relacionado. Print Language: SOUTH AFRICAN - Post Discharge Activity Forms/Work/School Notes: Back to Work
[2018-10-30 08:12] LABS: EPI CELLS 7.8 /HPF (0-5/HPF); HYALINE CASTS 4 /lpf (0-8); PH,URINE 6.5 (5.0-8.0); URINE APPEARANCE CLEAR; URINE BACTERIA 348.4 /hpf (NEGATIVE); URINE BILIRUBIN NEGATIVE (NEGATIVE); URINE COLOR YELLOW; URINE GLUCOSE (UA) NEGATIVE (NEGATIVE); URINE KETONE NEGATIVE (NEGATIVE); URINE LEUK ESTERASE 3+ (NEGATIVE); URINE NITRITE NEGATIVE (NEGATIVE); URINE PROTEIN NEGATIVE (NEGATIVE); URINE RBC 2 /hpf (0-4); URINE UROBILINOGEN 0.2 mg/dL (0.2-1.0); URINE WBC 22 /hpf (0-5)
[2018-10-30] MEDS ORDERED: CEPHALEXIN MONOHYDRATE 500 MG CAPSULE (UD) PO ONE (10:25)
[2018-10-30] MEDS ORDERED: CEPHALEXIN MONOHYDRATE 500 MG CAPSULE (UD) ONE (10:38)
[2018-10-30 11:15] VITALS: BP 125/51; PULSE 61; TEMP 98
--- NOTE | 2018-10-30 13:34 | EKG ---
Test Reason : Blood Pressure : / mmHG Vent. Rate : 062 BPM Atrial Rate : 062 BPM P-R Int : 190 ms QRS Dur : 114 ms QT Int : 434 ms P-R-T Axes : 046 000 020 degrees QTc Int : 440 ms NORMAL SINUS RHYTHM NORMAL ECG NO PREVIOUS ECGS AVAILABLE Confirmed by TIFFANY BELL MD ([id number]) on 10/30/2018 1:33:50 PM Referred By: Confirmed By:TIFFANY BELL MD
== END 2018-10-30 11:15 | disposition home or self-care (01) ==
LOC: JER 04:07
PROC: 3E033NZ Introduction of Analgesics, Hypnotics, Sedatives into Peripheral Vein, Percutaneous Approach (ICD-10-PCS; principal; 2018-10-30)
PROC: 3E033GC Introduction of Other Therapeutic Substance into Peripheral Vein, Percutaneous Approach (ICD-10-PCS; 2018-10-30)
PROC: 3E0337Z Introduction of Electrolytic and Water Balance Substance into Peripheral Vein, Percutaneous Approach (ICD-10-PCS; 2018-10-30)
DX: R11.2 Nausea with vomiting, unspecified (principal); R19.7 Diarrhea, unspecified; R07.9 Chest pain, unspecified; R10.11 Right upper quadrant pain
CPT/HCPCS: 36415; 71045-TC-FY; 76705-TC; 80053; 81003; 83690; 84484; 84703; 85025; 93005; 93010; 99283-25; J0131

== ENCOUNTER 2018-12-16 15:42 | Inpatient (IN) | payer OTHER ==
[2018-12-16] MEDS ORDERED: SODIUM CHLORIDE 1,000 ML IV STA (15:50)
--- NOTE | 2018-12-16 15:50 | PDOC ---
Rapid Medical Evaluation Time Seen by Provider: 12/16/18 15:48 Medical Evaluation: Allergies Allergy/AdvReac Type Severity Reaction Status Date / Time No Known Allergies Allergy Verified 10/30/18 04:20 12/16/18 15:48 I have performed a brief in-person evaluation of this patient. The patient presents with a chief complaint of: epigastric pain radiating to RUQ x2 days Pertinent physical exam findings: RUQ tenderness I have ordered the following: abdominal w/u The patient will proceed to the ED for further evaluation. Discharge Disposition - Diagnosis Abdominal pain - Referrals - Patient Instructions - Post Discharge Activity
[2018-12-16] MEDS ORDERED: LIDOCAINE VISCOUS 2% ORAL/TOP 20 ML UNIT-DOSE CUP MM ONE (17:12)
[2018-12-16] MEDS ORDERED: MAG HYDROX/AL HYDROX/SIMETH 30 ML UNIT-DOSE CUP PO ONE (17:12)
[2018-12-16] MEDS ORDERED: FAMOTIDINE 20 MG/50 ML IVPB 20 MG/50 ML MG IVPB ONE ×2 (17:12→18:13)
--- NOTE | 2018-12-16 17:24 | PDOC ---
History of Present Illness - General Chief Complaint: Pain, Acute Stated Complaint: ABD PAIN Time Seen by Provider: 12/16/18 15:48 History Source: Patient Exam Limitations: Language Barrier (Thai) - History of Present Illness Initial Comments: 38 yo F, PMH anemia, known gallstones, p/w RUQ pain. 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 Says that she had acute onset of pain yesterday, burning, 10 /10, associated with nausea, multiple episodes of vomiting, and diarrhea. States that she has not been able to eat very much. Further endorses subjective chills. Denies CP, FUCHS, dizziness, lightheadedness, constipation. 12/16/18 17:19 Past History - Past Medical History Allergies/Adverse Reactions: Allergies Allergy/AdvReac Type Severity Reaction Status Date / Time No Known Allergies Allergy Verified 12/16/18 15:53 Home Medications: Ambulatory Orders NK [No Known Home Medication] 12/16/18 Asthma: No Cancer: No Cardiac Disorders: No COPD: No DVT: No Diabetes: No HTN: No Seizures: No Thyroid Disease: No - Reproductive History (#): 6 Para: 5 Spontaneous : 0 - Immunization History Immunization Up to Date: Yes - Suicide/Smoking/Psychosocial Hx Smoking History: Never smoked Have you smoked in the past 12 months: No Hx Alcohol Use: No Drug/Substance Use Hx: No Substance Use Type: None Hx Substance Use Treatment: No Review of Systems - Review of Systems Able to Perform ROS?: Yes (Thai) Constitutional: Yes: Chills HEENTM: No: Recent change in vision, Throat Swelling, Difficulty Swallowing Respiratory: No: Cough, Shortness of Breath Cardiac (ROS): No: Chest Pain, Lightheadedness ABD/GI: Yes: Diarrhea, Nausea, Poor Fluid Intake, Vomiting. No: Constipated : No: Burning, Dysuria, Discharge, Frequency Neurological: No: Headache, Numbness, Tingling *Physical Exam - Vital Signs Last Vital Signs Temp Pulse Resp BP Pulse Ox 98.3 F 58 L 16 101/54 L 99 12/16/18 15:49 12/16/18 15:49 12/16/18 15:49 12/16/18 15:49 12/16/18 15:49 - Physical Exam Comments: Gen: NAD, appropriately dressed, looking comfortable Neuro: AAOX4, 5/5 strength HEENT: atraumatic, normocephalic Neck: trachea midline, supple CV: regular rate and rhythm Pulm: CTA b/l, no wheezing Abd: ttp to RUQ, non-distended Extr: no edema Skin: dry, warm MSK: no muscle wasting, normal ROM 12/16/18 17:22 ED Treatment Course - LABORATORY CBC & Chemistry Diagram: 12/16/18 17:30 12/16/18 17:30 Medical Decision Making - Medical Decision Making PUD vs biliary colic v acute cholecystitis. Plan for CBC CMP lipase EKG RUQ US Maalox Pepcid viscous lidocaine, fluids 12/16/18 17:24 UA 2+ bilirubin, 1+ leuk esterase. Treat outpatient. 12/16/18 18:10 WBC wnl 12/16/18 18:31 T bili 1.9, AST 895, ALT 800, Alk Phos 176, CK 211. Plan for CT abd/pelvis w/ contrast. 12/16/18 18:[address] Hannah 12/16/18 19:06 *DC/Admit/Observation/Transfer Diagnosis at time of Disposition: Abdominal pain - Referrals Referrals: Geeta Navas MD [Primary Care Provider] - - Patient Instructions - Post Discharge Activity
[2018-12-16 17:42] LABS: BASO % 0.6 % (0-2.0); EOS % 0.4 % (0-4.5); HEMATOCRIT 34.2 % (32.4-45.2); HEMOGLOBIN 11.1 GM/dL (10.7-15.3); LYMPH % 16.3 % (8-40); MCH 23.7 pg (25.7-33.7); MCHC 32.3 g/dl (32.0-36.0); MEAN CELL VOLUME 73.3 fl (80-96); MEAN PLT VOLUME 10.7 fl (7.5-11.1); NEUT % 75.7 % (42.8-82.8); PLATELET COUNT 166 K/MM3 (134-434); RBC 4.67 M/mm3 (3.60-5.2); RDW 17.2 % (11.6-15.6)
--- NOTE | 2018-12-16 17:54 | PDOC ---
Documentation entered by Antonio Brice SCRIBE, acting as scribe for Demetria Wadsworth MD. Demetria Wadsworth MD: This documentation has been prepared by the [employer], SCRIBE, under my direction and personally reviewed by me in its entirety. I confirm that the documentation accurately reflects all work, treatment, procedures, and medical decision making performed by me. Attending Attestation - Resident Resident Name: SpringerArturoketty - ED Attending Attestation I have performed the following: I have examined & evaluated the patient, The case was reviewed & discussed with the resident, I agree w/resident's findings & plan - HPI HPI: 12/16/18 17:43 Patient is a 38 year old female with a significant past medical history of anemia and gallstones who presents to the ED with Epigastric Pain lasting for x1 day. Patient reports that she ate a quesadilla and afterwards began to have stomach pain associated with a fever, chill, vomiting, and diarrhea. At this time the patient only is experiencing the abdominal pain. Allergies: NKA PCP: Dr. Navas - Physicial Exam PE: 12/16/18 17:46 GENERAL: The patient is in no acute distress. ENT: Ears normal, nares patent, oropharynx clear without exudates. Moist mucous membranes. NECK: Normal range of motion, supple, no nuchal rigidity LUNGS: Breath sounds equal, clear to auscultation bilaterally. No wheezes, and no crackles. HEART: Regular rate and rhythm, normal S1 and S2 without murmur, rub or gallop. ABDOMEN: +Epigastric Tenderness. Normoactive bowel sounds. No Distention. No RUQ Tenderness. No guarding, no rebound. No masses palpable. EXTREMITIES: Normal range of motion, no edema. NEUROLOGICAL: Cranial nerves II through XII grossly intact. Normal speech. No focal neurological deficits. SKIN: Warm, Dry, normal turgor, no rashes or lesions noted. - Medical Decision Making 12/16/18 17:52 38 yo F presenting with a complaint of abdominal pain Pt has known biliary pathology (+) nausea, no vomiting, no diarrhea DD: Cholecystitis, pancreatitis, gastritis Will do: Labs, US, Pepcid, Re assess 12/16/18 18:40 Laboratory Tests 12/16/18 12/16/18 17:30 17:30 WBC 6.0 Hgb 11.1 Hct 34.2 Plt Count 166 Neutrophils % 75.7 Sodium 141 Potassium 3.8 Chloride 110 H Carbon Dioxide 20 L Anion Gap 11 BUN 16.1 Creatinine 0.6 Total Bilirubin 1.9 H AST 895 H ALT 800 H Alkaline Phosphatase 176 H Creatine Kinase 211 H Troponin I < 0.02 Lipase [address] pending Signed out to overnight team 12/16/18 18:41 Will need to be admitted
[2018-12-16 18:08] LABS: EPI CELLS 11.9 /HPF (0-5/HPF); HYALINE CASTS 16 /lpf (0-8); URINE APPEARANCE CLEAR; URINE BACTERIA 111.9 /hpf (NEGATIVE); URINE BILIRUBIN 2+ (NEGATIVE); URINE COLOR DK YELLOW; URINE GLUCOSE (UA) NEGATIVE (NEGATIVE); URINE KETONE NEGATIVE (NEGATIVE); URINE LEUK ESTERASE 1+ (NEGATIVE); URINE NITRITE NEGATIVE (NEGATIVE); URINE PROTEIN NEGATIVE (NEGATIVE); URINE RBC 3 /hpf (0-4); URINE WBC 7 /hpf (0-5)
[2018-12-16] MEDS ORDERED: CEFTRIAXONE 1,000 MG in DEXTROSE 5%-WATER - 50 ML IVPB ONE (18:13)
[2018-12-16] MEDS ORDERED: MAG HYDROX/AL HYDROX/SIMETH 30 ML UNIT-DOSE CUP ONE (18:13)
[2018-12-16] MEDS ORDERED: LIDOCAINE VISCOUS 2% ORAL/TOP 20 ML UNIT-DOSE CUP ONE (18:13)
[2018-12-16 18:36] LABS: ALBUMIN 3.7 g/dl (3.4-5.0); ALK PHOS 176 U/L (45-117); ANION GAP 11 MMOL/L (8-16); BILIRUBIN,TOTAL 1.9 mg/dL (0.2-1); BLOOD UREA NITROGEN 16.1 mg/dL (7-18); CALCIUM 8.6 mg/dL (8.5-10.1); CHLORIDE 110 mmol/L (98-107); CO2 20 mmol/L (21-32); CREATININE 0.6 mg/dL (0.55-1.3); GLUCOSE,RANDOM 96 mg/dL (74-106); LIPASE 205 U/L (73-393); POTASSIUM 3.8 mmol/L (3.5-5.1); SGOT/AST 895 U/L (15-37); SGPT/ALT 800 U/L (13-61); SODIUM 141 mmol/L (136-145); TOT PROT 7.1 g/dl (6.4-8.2)
--- NOTE | 2018-12-16 19:16 | PDOC ---
*Physical Exam - Vital Signs Last Vital Signs Temp Pulse Resp BP Pulse Ox 98.3 F 58 L 16 101/54 L 99 12/16/18 15:49 12/16/18 15:49 12/16/18 15:49 12/16/18 15:49 12/16/18 15:49 - Physical Exam Comments: 12/16/18 19:45 38F w/ pmh of anemia and known GB stones presenting w/ 1d of epigastric and RUQ abdominal pain. Currently 12/19 from 02/18 earlier. Explained using computational mathematician phone that we are currently awaiting the U/S interpretation but possibly an obstructive biliary stone that would require IV abx and admission. - zosyn ordered General Appearance: Yes: Mild Distress HEENT: negative: Scleral Icterus (R), Scleral Icterus (L) Neck: negative: Trachea midline Respiratory/Chest: positive: Lungs Clear, Normal Breath Sounds. negative: Respiratory Distress Cardiovascular: positive: Regular Rhythm, Regular Rate Gastrointestinal/Abdominal: positive: Soft, Tenderness (RUQ and epigastrium) Extremity: positive: Normal Range of Motion Neurologic: positive: Alert ED Treatment Course - LABORATORY CBC & Chemistry Diagram: 12/16/18 17:30 12/16/18 17:30 - ADDITIONAL ORDERS Additional order review: Laboratory Results 12/16/18 12/16/18 12/16/18 17:40 17:40 17:30 Sodium 141 Potassium 3.8 Chloride 110 H Carbon Dioxide 20 L Anion Gap 11 BUN 16.1 Creatinine 0.6 Est GFR (CKD-EPI)AfAm 134.01 Est GFR (CKD-EPI)NonAf 115.63 Random Glucose 96 Calcium 8.6 Total Bilirubin 1.9 H AST 895 H ALT 800 H Alkaline Phosphatase 176 H Creatine Kinase 211 H Creatine Kinase Index 0.7 CK-MB (CK-2) 1.6 Troponin I < 0.02 Total Protein 7.1 Albumin 3.7 Lipase 205 Urine Color Dk yellow Urine Appearance Clear Urine pH 6.0 Ur Specific [place] 1.027 Urine Protein Negative Urine Glucose (UA) Negative Urine Ketones Negative Urine Blood Negative Urine Nitrite Negative Urine Bilirubin 2+ H Urine Urobilinogen 1.0 Ur Leukocyte Esterase 1+ H Urine WBC (Auto) 7 Urine RBC (Auto) 3 Urine Casts (Auto) 16 U Epithel Cells (Auto) 11.9 Urine Bacteria (Auto) 111.9 Urine HCG, Qual Negative 12/16/18 17:30 RBC 4.67 MCV 73.3 L MCHC 32.3 RDW 17.2 H MPV 10.7 Neutrophils % 75.7 Lymphocytes % 16.3 D Monocytes % 7.0 Eosinophils % 0.4 Basophils % 0.6 - Medications Given in the ED: ED Medications Discontinued Medications Generic Name Dose Route Start Last Admin Trade Name Marquez PRN Reason Stop Dose Admin Al Hydroxide/Mg Hydroxide 30 ml 12/16/18 17:12 12/16/18 18:43 Mylanta Oral Suspension - PO 12/16/18 17:13 30 ml ONCE ONE Administration Sodium Chloride 1,000 mls @ 1,000 mls/hr 12/16/18 15:50 12/16/18 17:31 Normal Saline - IV 12/16/18 16:49 1,000 mls/hr ASDIR STA Administration Famotidine/Sodium Chloride 20 mg in 50 mls @ 100 mls/hr 12/16/18 17:12 18:44 Pepcid 20 Mg Premixed Ivpb - IVPB 12/16/18 17:41 100 mls/hr ONCE ONE Administration Ceftriaxone Sodium 1,000 mg/ 50 mls @ 100 mls/hr 12/16/18 18:13 12/16/18 18: 58 Dextrose IVPB 12/16/18 18:42 Not Given ONCE ONE Lidocaine HCl 20 ml 12/16/18 17:12 12/16/18 18:44 Xylocaine 2% Viscous Oral - MM 12/16/18 17:13 20 ml ONCE ONE Administration Medical Decision Making - Medical Decision Making 12/16/18 20:09 - U/S RUQ interpretation reviewed. Report states 7mm mobile stone, neg for pericholecystic fluid/GB wall thickening/intra/extrahepatic duct dilatation. - GI consulted for possible cholangiogram/ERCP - Surgery consulted for possible cholecystectomy 12/16/18 21:13 - Surgery(Dr Calhoun) returned page. Recommended admission, meropenem, MRCP, GI evaluation - decision to admit 12/16/18 22:13 - spoke to Dr Felipa Gomez for sign-out 12/16/18 22:29 - spoke to GI(Dr Espino). Recommended MRCP(w/o contrast) *DC/Admit/Observation/Transfer Diagnosis at time of Disposition: Choledocholithiasis Abdominal pain Qualifiers: Abdominal location: right upper quadrant Qualified Code(s): R10.11 - Right upper quadrant pain - Discharge Dispostion Condition at time of disposition: Stable Decision to Admit order: Yes - Referrals - Patient Instructions - Post Discharge Activity
[2018-12-16] MEDS ORDERED: PIPERACILLIN/TAZOB 4.5 GM 4.5 GM in DEXTROSE 5%-WATER 100 ML IVPB ONE (19:26)
[2018-12-16] MEDS ORDERED: PIPERACILLIN/TAZOB 4.5 GM 4.5 GM/100 ML BAG IVPB ONE (19:30)
[2018-12-16] MEDS ORDERED: morphine CARPU-JECT 4 MG/1 ML DISP.SYRIN IVPUSH ONE (19:58)
[2018-12-16] MEDS ORDERED: morphine SULFATE 4 MG/ML VIAL ONE (20:08)
[2018-12-16] MEDS ORDERED: MEROPENEM 1 GM in DEXTROSE 5%-WATER 100 ML IVPB ONE (21:11)
--- NOTE | 2018-12-16 22:30 | PN ---
Teaching Attending Note Name of Resident: Damon Upton ATTENDING PHYSICIAN STATEMENT I saw and evaluated the patient. I reviewed the resident's note and discussed the case with the resident. I agree with the resident's findings and plan as documented. Seen and examined; please see resident note for further historical info. Briefly, this is a 38 y/o Swedish-speaking female presenting with abdominal pain found to have choledocholithiasis; afebrile with negative lipase but elevated LFTs/bili. VS, labs, imaging reviewed NAD, AAO, resting in bed NC AT EOMI PERRLA RRR s1/2 Lungs CTAB, w/ sym exp Mildly tender upper ab, ND, +BS Normal mood, appropriate behavior EKG reviewed CXR reviewed CT final report pending; prelim shows ASSESSMENT AND PLAN: Patient presents with transaminitis with obstructive pattern; found to have a 7mm mobile gallstone # R/o choledocho -Given no dilation of CBD but mobile stone with obstructive transam consider recently passed stone, etc. Obtaining MRCP w/ contrast. ER consulted sgy; recommend abx. GI consult pending. Appreciate expert opinion. Hepatitis pannel, HIV, ESR, CRP. # Gallstone without -itis # Microcytosis without anemia -Checking iron studies. Could be diluted. # NAGMA -Likely 2/2 acute process but chloride noted; LR overnight recheck in AM # Likely acute cystitis -Got merrem and zosyn in ER; as ID consulted deferring further abx to their care
[2018-12-16] MEDS ORDERED: LACTATED RINGERS SOLUTION 1,000 ML IV SCH (23:45)
[2018-12-16] MEDS ORDERED: LACTATED RINGERS SOLUTION 1,000 ML IV STA (23:47)
--- NOTE | 2018-12-17 02:59 | HP ---
<Damon Upton - Last Filed: 12/17/18 23:40> CHIEF COMPLAINT: RUQ pain PCP: HISTORY OF PRESENT ILLNESS: [employer] phone used to gather hx 38 y/o F, pmh of anemia, presents to the ED c/o of localized, nonradiating, 12/19 , RUQ abdominal pain of 1 day duration that started yesterday after meal. She said that the pain was spontaneous and associated with nausea, nbnb vomitting, and diarrhea. Reports not taking anything for the pain and nothing seems to improve the pain and nothing seems to worsen the pain. The pt has been unable to keep food down. Pt has been previously admitted for similar symptoms during which 7mm stones were discovered in the GB and the pt was referred for surgery. However, the pt did not f/u due to lack of insurance. Currently pt is in pain and would like to continue with surgery if needed. Denies fevers, chills, sob, chest pain, numbness or tingling, urinary incontinence. ER course was notable for: (1)U/S- 7mm stones (2)Zosyn given in ED (3)CT w/ contrast- mild distended GB Recent Travel: denies PAST MEDICAL HISTORY: anemia PAST SURGICAL HISTORY: denies Social History: Smoking: denies Alcohol: denies Drugs: Denies Family History: 6 children 12 y/o boy- Heart disease 6 month old baby- heart disease Allergies No Known Allergies Allergy (Verified 12/16/18 15:53) HOME MEDICATIONS: Home Medications Medication Instructions Recorded NK [No Known Home Medication] 12/16/18 REVIEW OF SYSTEMS CONSTITUTIONAL: Absent: fever, chills, diaphoresis, generalized weakness, CARDIOVASCULAR: Absent: chest pain, syncope, palpitations, irregular heart rate, lightheadedness , RESPIRATORY: Absent: cough, shortness of breath, dyspnea with exertion, GASTROINTESTINAL: Admits: abdominal pain, abdominal distension, nausea, vomiting, diarrhea, Absent: constipation, melena, hematochezia GENITOURINARY: Absent: dysuria, frequency, urgency, hesitancy, hematuria, flank pain, genital pain MUSCULOSKELETAL: Absent: myalgia, arthralgia, joint swelling, back pain NEUROLOGIC: Absent: headache, focal weakness or paresthesias, unsteady gait, seizure, mental status changes, bladder incontinence PHYSICAL EXAMINATION Vital Signs - 24 hr Last Vital Signs Temp Pulse Resp BP Pulse Ox 98.3 F 58 L 16 101/54 L 99 12/16/18 15:49 12/16/18 15:49 12/16/18 15:49 12/16/18 15:49 12/16/18 15:49 GENERAL: Awake, alert, and fully oriented, in no acute distress. EYES: Pupils equal, round and reactive to light, extraocular movements intact NECK: supple without lymphadenopathy, JVD, or masses, no thyroid fullness LUNGS: Breath sounds equal, clear to auscultation bilaterally. No wheezes, and no crackles. HEART: Regular rate and rhythm, normal S1 and S2 without murmur, rub or gallop. ABDOMEN: Diffuse tenderness, guarding, positive richardson's, no rebound, neg Rovsing, not distended, normoactive bowel sounds. No hepatomegaly or splenomegaly. UPPER EXTREMITIES: 2+ pulses, warm, well-perfused. No peripheral edema. LOWER EXTREMITIES: 2+ pulses, warm, well-perfused. No peripheral edema. PSYCHIATRIC: Cooperative. Good eye contact. Laboratory Results - last 24 hr CBC, BMP 12/16/18 17:30 12/16/18 17:30 CK: 211 Total Bilirubin 1.9 mg/dL (0.2-1) H 12/16/18 17:30 AST 895 U/L (15-37) H 12/16/18 17:30 ALT 800 U/L (13-61) H 12/16/18 17:30 Alkaline Phosphatase 176 U/L (45-117) H 12/16/18 17:30 Albumin 3.7 g/dl (3.4-5.0) 12/16/18 17:30 ASSESSMENT/PLAN: 38 y/o F, pmh of anemia, presents to the ED c/o of localized RUQ abdominal pain of 1 day duration s/p meal #Abdominal pain r/o Choledocholithiasis vs Acute cholecystitis MRCP w/ contrast ordered Morphine 2mg Q6H Keep NPO GI surgery consult- Dr. Cruz Meropenem abx given in ED ID consult- Dr. Scott r/p Abdomen U/S-pending HIV, ESR, CRP ordered- pending Direct bili-pending Hepatitis panel- pending Type and Screen ordered Started on LR bolus given + 75 mls/hr #Anemia Iron-TIBC profile ordered-pending #Bradycardic Monitor Vitals #DVT ppx SCDs- Anticoags held for possible surgery in am FEN: NPO Dispo: symptomatic management, f/u Abd U/S, discuss Abx, prepare for MRCP in the am Visit type - Emergency Visit Emergency Visit: Yes ED Registration Date: 12/16/18 Care time: The patient presented to the Emergency Department on the above date and was hospitalized for further evaluation of their emergent condition. - New Patient This patient is new to me today: Yes Date on this admission: 12/17/18 - Critical Care Critical Care patient: No ATTENDING PHYSICIAN STATEMENT I saw and evaluated the patient. I reviewed the resident's note and discussed the case with the resident. I agree with the resident's findings and plan as documented. SUBJECTIVE: OBJECTIVE: ASSESSMENT AND PLAN: <Chadwick Jones - Last Filed: 02/04/19 03:14> Seen and examined,Please refer to my notes for further details. Agree with above , verified an was present for all vo parts of history and physical exam PMH PSH,reviewed and are as per chart Social history is negative for active IVDU, red-flag social concerns. Family history negative for sudden cardiac , discussed at length and was otherwise noncontributory. ATTENDING PHYSICIAN STATEMENT I saw and evaluated the patient. I reviewed the resident's note and discussed the case with the resident. I agree with the resident's findings and plan as documented. SUBJECTIVE: OBJECTIVE: ASSESSMENT AND PLAN:
[2018-12-17 04:08] LABS: IRON SERUM 26 ug/dL (50-175); TOTAL IRON BINDING CAPACITY 332 ug/dL (250-450)
[2018-12-17 06:04] LABS: EOS % 2.3 % (0-4.5); HEMATOCRIT 30.8 % (32.4-45.2); HEMOGLOBIN 9.9 GM/dL (10.7-15.3); MCH 23.6 pg (25.7-33.7); MCHC 32.2 g/dl (32.0-36.0); MEAN CELL VOLUME 73.4 fl (80-96); MEAN PLT VOLUME 10.4 fl (7.5-11.1); MONO % 6.8 % (3.8-10.2); NEUT % 51.9 % (42.8-82.8); PLATELET COUNT 130 K/MM3 (134-434); RDW 17.5 % (11.6-15.6); WHITE BLOOD COUNT 3.5 K/mm3 (4.0-10.0)
[2018-12-17 06:32] LABS: ALK PHOS 168 U/L (45-117); ANION GAP 8 MMOL/L (8-16); BILIRUBIN,TOTAL 1.5 mg/dL (0.2-1); BLOOD UREA NITROGEN 8.8 mg/dL (7-18); CALCIUM 7.9 mg/dL (8.5-10.1); CHLORIDE 114 mmol/L (98-107); CO2 23 mmol/L (21-32); CREATININE 0.6 mg/dL (0.55-1.3); GLUCOSE,RANDOM 87 mg/dL (74-106); POTASSIUM 3.7 mmol/L (3.5-5.1); SGOT/AST 790 U/L (15-37); SGPT/ALT 897 U/L (13-61); SODIUM 145 mmol/L (136-145); TOT PROT 5.7 g/dl (6.4-8.2)
[2018-12-17 07:52] LABS: ERYTHROCYTE SEDIMENTATION RATE 8 mm/hr (0-20)
--- NOTE | 2018-12-17 09:04 | CON.GI ---
Consult Consult Specialty:: GI Referred by:: Dr Daniel Graves Reason for Consultation:: CBD stone - History of Present Illness Chief Complaint: Abdominal Pain History of Present Illness: Patient is a 38 y/o female with past medical history of anemia. Patient presented to ER with complaints of epigastric pain x 2 weeks, non-radiating, accompanied with nausea, vomiting, diarrhea. Patient states that she was seen in [facility] ER for same chief complaint and was seen on 11/29/18 and was referred to Dr. Nicole with an appointment scheduled for next Friday. In ER labs show AST 790, ALT 897, Alk Phos 168, lipase 205. Abdominal US shows 7mm gallstone, gallbladder adequately distended. - History Source History Provided By: Patient Limitations to Obtaining History: No Limitations - Past Medical History ...LMP: 02/23/15 Heme/Onc: Yes: Anemia - Past Surgical History Past Surgical History: Yes: None - Alcohol/Substance Use Hx Alcohol Use: No History of Substance Use: reports: None - Smoking History Smoking history: Never smoked Have you smoked in the past 12 months: No - Social History ADL: Independent History of Recent Travel: No Home Medications - Allergies Allergies/Adverse Reactions: Allergies Allergy/AdvReac Type Severity Reaction Status Date / Time No Known Allergies Allergy Verified 12/16/18 15:53 - Home Medications Home Medications: Ambulatory Orders NK [No Known Home Medication] 12/16/18 Review of Systems - Review of Systems Constitutional: reports: Loss of Appetite Eyes: reports: No Symptoms HENT: reports: No Symptoms Neck: reports: No Symptoms Cardiovascular: reports: No Symptoms Respiratory: reports: No Symptoms Gastrointestinal: reports: Abdominal Pain, Diarrhea, Nausea, Vomiting Genitourinary: reports: No Symptoms Breasts: reports: No Symptoms Reported Musculoskeletal: reports: No Symptoms Integumentary: reports: No Symptoms Neurological: reports: No Symptoms Endocrine: reports: No Symptoms Hematology/Lymphatic: reports: No Symptoms Psychiatric: reports: No Symptoms Physical Exam-GI Vital Signs: Vital Signs Temperature 98.2 F 12/17/18 05:51 Pulse Rate 54 L 12/17/18 05:51 Respiratory Rate 18 12/17/18 05:51 Blood Pressure 117/76 12/17/18 05:51 O2 Sat by Pulse Oximetry (%) 96 12/17/18 05:51 Constitutional: Yes: No Distress, Calm Eyes: Yes: Conjunctiva Clear Neck: Yes: Supple Cardiovascular: Yes: Regular Rate and Rhythm Respiratory: Yes: Regular, CTA Bilaterally Gastrointestinal Inspection: Yes: WNL. No: Ascites, Distention, Hernia, Scars, Other ...Auscultate: Yes: Normoactive Bowel Sounds. No: Hyperactive Bowel Sounds, Hypoactive Bowel Sounds, No Bowel Sounds, Other ...Palpate: Yes: Soft, Tenderness (RUQ, LUQ), Tenderness, Epigastium. No: Firm/ Rigid, Guarding, Hepatomegaly, Mass, Pulsatile Mass, Splenomegaly, Tenderness, Rebound, Other ...Percussion: Yes: Tympanitic. No: Dullness, Fluid Wave, Other Neurological: Yes: Alert, Oriented Psychiatric: Yes: Alert, Oriented Labs: CBC, BMP 12/17/18 05:10 12/17/18 05:10 Home Medication List Medication Instructions Recorded Confirmed Type NK [No Known Home Medication] 12/16/18 12/16/18 History Active Medications Generic Name Dose Route Start Last Admin Trade Name Marquez PRN Reason Stop Dose Admin Lactated Ringer's 1,000 mls @ 75 mls/hr 12/16/18 23:45 12/17/18 00:24 Lactated Ringers Solution IV 75 mls/hr ASDIR BRUCE Administration Morphine Sulfate 2 mg 12/16/18 23:47 Morphine Sulfate IVPUSH Q4H PRN PAIN LEVEL 6-10 Imaging - Results Cat Scan: Report Reviewed Ultrasound: Report Reviewed Problem List - Problems (1) Biliary acute pancreatitis Assessment/Plan: -Abdominal US and CT scan reviewed -NPO -IV hydration -pending abdomen MRCP as of 8pm--made Nursing field service supervisor aware -monitor LFTs Code(s): K85.10 - BILIARY ACUTE PANCREATITIS WITHOUT NECROSIS OR INFECTION
--- NOTE | 2018-12-17 10:43 | CON.ID ---
Consult Consult Specialty:: infectious diseases - Past Medical History ...LMP: 02/23/15 - Past Surgical History Past Surgical History: Yes: None - Alcohol/Substance Use Hx Alcohol Use: No History of Substance Use: reports: None - Smoking History Smoking history: Never smoked Have you smoked in the past 12 months: No - Social History ADL: Independent History of Recent Travel: No Home Medications - Allergies Allergies/Adverse Reactions: Allergies Allergy/AdvReac Type Severity Reaction Status Date / Time No Known Allergies Allergy Verified 12/16/18 15:53 - Home Medications Home Medications: Ambulatory Orders NK [No Known Home Medication] 12/16/18 Physical Exam Vital Signs: Vital Signs Temperature 98.2 F 12/17/18 05:51 Pulse Rate 49 L 12/17/18 09:08 Respiratory Rate 18 12/17/18 09:08 Blood Pressure 121/74 12/17/18 09:08 O2 Sat by Pulse Oximetry (%) 99 12/17/18 09:08 Labs: CBC, BMP 12/17/18 05:10 12/17/18 05:10
--- NOTE | 2018-12-17 10:54 | CONSULT ---
Consult Consult Specialty:: General Surgery Reason for Consultation:: RUQ abdominal pain - History of Present Illness Chief Complaint: abdominal pain History of Present Illness: 38 yo female PMH anemia, presents to the ED c/o of localized, nonradiating, 12/19 , RUQ abdominal pain of 1 day duration that started yesterday after meal. She said that the pain was spontaneous and associated with nausea, nbnb vomitting, and diarrhea. Reports not taking anything for the pain and nothing seems to improve the pain and nothing seems to worsen the pain. The pt has been unable to keep food down. Pt has been previously admitted for similar symptoms during which 7mm stones were discovered in the GB and the pt was referred for surgery with Dr. Angel Nicole. However, the she did not f/u due to lack of insurance. Currently pt is in pain and would like to continue with surgery if needed. Denies fevers, chills, sob, chest pain, numbness or tingling, urinary incontinence. we were asked to assess. - History Source History Provided By: Patient, Medical Record Limitations to Obtaining History: No Limitations - Past Medical History ...LMP: 02/23/15 - Past Surgical History Past Surgical History: Yes: None - Alcohol/Substance Use Hx Alcohol Use: No History of Substance Use: reports: None - Smoking History Smoking history: Never smoked Have you smoked in the past 12 months: No - Social History ADL: Independent History of Recent Travel: No Home Medications - Allergies Allergies/Adverse Reactions: Allergies Allergy/AdvReac Type Severity Reaction Status Date / Time No Known Allergies Allergy Verified 12/16/18 15:53 - Home Medications Home Medications: Ambulatory Orders NK [No Known Home Medication] 12/16/18 Review of Systems - Review of Systems Constitutional: denies: Chills, Fever Eyes: denies: Blind Spots, Recent Change in Vision HENT: denies: Difficult Swallowing, Throat Pain Neck: denies: Decreased ROM, Tenderness Cardiovascular: denies: Chest Pain, Palpitations Respiratory: denies: Cough, SOB Gastrointestinal: reports: Abdominal Pain, Indigestion. denies: Constipation, Diarrhea, Nausea Genitourinary: denies: Burning, Discharge, Dysuria Breasts: reports: No Symptoms Reported. denies: Pain Musculoskeletal: denies: Back Pain, Muscle Pain Integumentary: denies: Lesions, Rash Neurological: denies: Seizure, Syncope Endocrine: denies: Unexplained Weight Gain, Unexplained Weight Loss Hematology/Lymphatic: denies: Easily Bruised, Excessive Bleeding Psychiatric: denies: Anxiety, Depression Physical Exam Vital Signs: Vital Signs Temperature 98.2 F 12/17/18 05:51 Pulse Rate 49 L 12/17/18 09:08 Respiratory Rate 18 12/17/18 09:08 Blood Pressure 121/74 12/17/18 09:08 O2 Sat by Pulse Oximetry (%) 99 12/17/18 09:08 Constitutional: Yes: Well Nourished, No Distress, Calm Eyes: Yes: Conjunctiva Clear, EOM Intact HENT: Yes: Atraumatic, Normocephalic Neck: Yes: Supple, Trachea Midline Cardiovascular: Yes: Regular Rate and Rhythm, S1, S2 Respiratory: Yes: Regular, CTA Bilaterally Gastrointestinal: Yes: Normal Bowel Sounds, Soft, Tenderness, Tenderness, Epigastrium, Tenderness, Rebound ...Rectal Exam: Yes: Deferred Renal/: No: CVA Tenderness - Left, CVA Tenderness - Right Breast(s): No: Mass, Skin Changes Musculoskeletal: No: Muscle Pain, Muscle Weakness Extremities: No: Cool, Cyanosis Edema: No Peripheral Pulses WNL: Yes Integumentary: No: Jaundice, Rash Neurological: Yes: Alert, Oriented Psychiatric: Yes: Alert, Oriented Labs: CBC, BMP 12/17/18 05:10 12/17/18 05:10 Imaging - Results Cat Scan: Report Reviewed, Image Reviewed Ultrasound: Report Reviewed, Image Reviewed MRI: Report Reviewed, Image Reviewed Problem List - Problems (1) Biliary acute pancreatitis Assessment/Plan: 38 yo female with abdominal pain, obstructed CBD? NPO and IVF hydration IV antibiotics per ID trend labs MRCP GI for ERCP Possible cholecystectomy this admission will follow Thank you for the opportunity to participate in the care of this patient. Code(s): K85.10 - BILIARY ACUTE PANCREATITIS WITHOUT NECROSIS OR INFECTION (2) Anemia Code(s): D64.9 - ANEMIA, UNSPECIFIED (3) Choledocholithiasis Code(s): K80.50 - CALCULUS OF BILE DUCT W/O CHOLANGITIS OR CHOLECYST W/O OBST (4) Ovarian cyst Code(s): N83.20 - UNSPECIFIED OVARIAN CYSTS * DO NOT USE * Qualifiers: Laterality: left Qualified Code(s): N83.202 - Unspecified ovarian cyst, left side
[2018-12-17] MEDS ORDERED: PIPERACILLIN/TAZOB 3.375 GM 3.375 GM/50 ML BAG IVPB ONE ×2 (11:09→18:05)
[2018-12-17] MEDS: PIPERACILLIN/TAZOB 3.375 GM 3.375 GM in DEXTROSE 5%-WATER - 50 ML IVPB SCH ×2 (11:09→18:12)
--- NOTE | 2018-12-17 13:16 | PN ---
Teaching Attending Note Name of Resident: Jayne Levi ATTENDING PHYSICIAN STATEMENT I saw and evaluated the patient. I reviewed the resident's note and discussed the case with the resident. I agree with the resident's findings and plan as documented. SUBJECTIVE:came in for abdominal pain but now having worsening RLE pain radiating from the thigh to the calf, crampy pain. abdominal pain is improved. had similar episode 2 months ago where she came to ER but was sent home and told to f/u with surgeon. pt is 6 months and currently . denies CP, sob, fever, chills, cough OBJECTIVE: Last Vital Signs Temp Pulse Resp BP Pulse Ox 98.2 F 49 L 18 121/74 99 12/17/18 05:51 12/17/18 09:08 12/17/18 09:08 12/17/18 09:08 12/17/18 09:08 General NAD CV S1 S2 RRR no murmur/rub/gallop Lungs CTA B/L no wheezing/rlaes/rhonchi Abdomen soft +RUQ tenderness. no rebound or guarding +richardson sign Extremities RLE calf tenderness +william sign. no swelling. ASSESSMENT AND PLAN: 38yo F wtih no PMD presented to the Er wtih abdominal pain with nausea and vomiting and now R calf pain. pt was found to have signs suggestive of acute cholecystitis with concern for choldocholithasis 1. Acute cholecystitis with concern for choledocholithasis- CBD is normal on CT scan but given cholestatic picture concern is there. MRCP was done. will f/u results will liekly require ERCP. on meropenem due to risk of cholangitis. will need cholecystectomy on this hospitalization. cont NPO, IVF, and pain control. GI, surgery and ID on board. will f/u Cx. check hepatitis panel 2. R calf tenderness- recently . will check vein duplex 3. Microcytic anemia- acute drop is liekly dilutional component. iron studies showing iron def anemia. will need iron supplementation when off abx. hgb near baseline of previous hospital eval. no indication for transfusion 4. - will need to verify all medications are safe in at this time. will order pump to room and told patient to hold milk at this time until it can be verified safe to give 5. DVT ppx- will start hep once no immediate procedures are planned 6. spoke with present at bedside. all questions answered. verbalized understanding
[2018-12-17] MEDS: LACTATED RINGERS SOLUTION 1,000 ML IV SCH (13:46)
--- NOTE | 2018-12-17 13:50 | EKG ---
Test Reason : Blood Pressure : / mmHG Vent. Rate : 051 BPM Atrial Rate : 051 BPM P-R Int : 186 ms QRS Dur : 122 ms QT Int : 468 ms P-R-T Axes : 052 013 035 degrees QTc Int : 431 ms SINUS BRADYCARDIA NON-SPECIFIC INTRA-VENTRICULAR CONDUCTION DELAY BORDERLINE ECG WHEN COMPARED WITH ECG OF 30-OCT-2018 04:29, NO SIGNIFICANT CHANGE WAS FOUND Confirmed by ANGELA MATTA MD ([id number]) on 12/17/2018 1:50:39 PM Referred By: Confirmed By:ANGELA MATTA MD
--- NOTE | 2018-12-17 14:08 | PN ---
Physical Exam: SUBJECTIVE: Patient seen and examined at bedside. delivery technician phone was used ( # [phone]). Pt states she came into the hospital for epigastric abdominal pain which radiated to the RUQ and straight back to her spine. Pt states the pain is stabbing and 10/10 intensity. Pt states pain has since improved after the pain medication in the ER. pt also complaining of R>L LE pain. Pt states LE pain began after deliver of her child. Pt states that when the pain was bad she had dizziness, n/v/d. pt breast feeds and wants to know if can continue to use breast milk for baby. OBJECTIVE: Vital Signs Period Temp Pulse Resp BP Sys/Hu Pulse Ox Last 24 Hr 98.2 F-98.3 F 49-58 16-18 101-121/54-76 96-99 GENERAL: The patient is awake, alert, and fully oriented, in no acute distress. HEAD: Normal with no signs of trauma. EYES: PERRL, extraocular movements intact, sclera anicteric, conjunctiva clear. No ptosis. LUNGS: Breath sounds equal, clear to auscultation bilaterally, no wheezes, no crackles, no accessory muscle use. HEART: Regular rate and rhythm, S1, S2 without murmur, rub or gallop. ABDOMEN: Soft, mildly tender to palpation on RUQ. nondistended, normoactive bowel sounds, no guarding, no rebound, no hepatosplenomegaly, no masses. EXTREMITIES: 2+ pulses, warm, well-perfused, no edema. SKIN: Warm, dry, normal turgor, no rashes or lesions noted Laboratory Last Values WBC 3.5 K/mm3 (4.0-10.0) L 12/17/18 05:10 RBC 4.20 M/mm3 (3.60-5.2) 12/17/18 05:10 Hgb 9.9 GM/dL (10.7-15.3) L 12/17/18 05:10 Hct 30.8 % (32.4-45.2) L 12/17/18 05:10 MCV 73.4 fl (80-96) L 12/17/18 05:10 MCH 23.6 pg (25.7-33.7) L 12/17/18 05:10 MCHC 32.2 g/dl (32.0-36.0) 12/17/18 05:10 RDW 17.5 % (11.6-15.6) H 12/17/18 05:10 Plt Count 130 K/MM3 (134-434) L D 12/17/18 05:10 MPV 10.4 fl (7.5-11.1) 12/17/18 05:10 Absolute Neuts (auto) 1.8 K/mm3 (1.5-8.0) 12/17/18 05:10 Neutrophils % 51.9 % (42.8-82.8) D 12/17/18 05:10 Lymphocytes % 38.0 % (8-40) D 12/17/18 05:10 Monocytes % 6.8 % (3.8-10.2) 12/17/18 05:10 Eosinophils % 2.3 % (0-4.5) D 12/17/18 05:10 Basophils % 1.0 % (0-2.0) 12/17/18 05:10 Nucleated RBC % 0 % (0-0) 12/17/18 05:10 ESR 8 mm/hr (0-20) 12/17/18 05:10 Sodium 145 mmol/L (136-145) 12/17/18 05:10 Potassium 3.7 mmol/L (3.5-5.1) 12/17/18 05:10 Chloride 114 mmol/L (98-107) H 12/17/18 05:10 Carbon Dioxide 23 mmol/L (21-32) 12/17/18 05:10 Anion Gap 8 MMOL/L (8-16) 12/17/18 05:10 BUN 8.8 mg/dL (7-18) 12/17/18 05:10 Creatinine 0.6 mg/dL (0.55-1.3) 12/17/18 05:10 Est GFR (CKD-EPI)AfAm 134.01 12/17/18 05:10 Est GFR (CKD-EPI)NonAf 115.63 12/17/18 05:10 Random Glucose 87 mg/dL (74-106) 12/17/18 05:10 Calcium 7.9 mg/dL (8.5-10.1) L 12/17/18 05:10 Iron 26 ug/dL (50-175) L 12/17/18 03:18 TIBC 332 ug/dL (250-450) 12/17/18 03:18 Iron Saturation 7 % (17.5-39) L 12/17/18 03:18 Unsaturated IBC 306 ug/dL (200-275) H 12/17/18 03:18 Total Bilirubin 1.5 mg/dL (0.2-1) H 12/17/18 05:10 Direct Bilirubin 1.4 mg/dL (0.0-0.2) H 12/17/18 03:18 AST 790 U/L (15-37) H 12/17/18 05:10 ALT 897 U/L (13-61) H 12/17/18 05:10 Alkaline Phosphatase 168 U/L (45-117) H 12/17/18 05:10 Creatine Kinase 211 U/L (26-192) H 12/16/18 17:30 Creatine Kinase Index 0.7 % (0.0-5.0) 12/16/18 17:30 CK-MB (CK-2) 1.6 ng/mL (0.5-3.6) 12/16/18 17:30 Troponin I < 0.02 ng/ml (0.00-0.05) 12/16/18 17:30 C-Reactive Protein < 0.3 MG/DL (0.00-0.3) 12/17/18 05:10 Total Protein 5.7 g/dl (6.4-8.2) L 12/17/18 05:10 Albumin 3.0 g/dl (3.4-5.0) L 12/17/18 05:10 Lipase 205 U/L (73-393) 12/16/18 17:30 Urine Color Dk yellow 12/16/18 17:40 Urine Appearance Clear 12/16/18 17:40 Urine pH 6.0 (5.0-8.0) 12/16/18 17:40 Ur Specific Sturgeon 1.027 (1.010-1.035) 12/16/18 17:40 Urine Protein Negative (NEGATIVE) 12/16/18 17:40 Urine Glucose (UA) Negative (NEGATIVE) 12/16/18 17:40 Urine Ketones Negative (NEGATIVE) 12/16/18 17:40 Urine Blood Negative (NEGATIVE) 12/16/18 17:40 Urine Nitrite Negative (NEGATIVE) 12/16/18 17:40 Urine Bilirubin 2+ (NEGATIVE) H 12/16/18 17:40 Urine Urobilinogen 1.0 mg/dL (0.2-1.0) 12/16/18 17:40 Ur Leukocyte Esterase 1+ (NEGATIVE) H 12/16/18 17:40 Urine WBC (Auto) 7 /hpf (0-5) 12/16/18 17:40 Urine RBC (Auto) 3 /hpf (0-4) 12/16/18 17:40 Urine Casts (Auto) 16 /lpf (0-8) 12/16/18 17:40 U Pathogenic Cast Auto None seen /lpf (NEGATIVE) 12/16/18 17:40 U Epithel Cells (Auto) 11.9 /HPF (0-5/HPF) 12/16/18 17:40 Urine Bacteria (Auto) 111.9 /hpf (NEGATIVE) 12/16/18 17:40 Urine HCG, Qual Negative 12/16/18 17:40 Blood Type O POSITIVE 12/17/18 05:10 Antibody Screen Negative 12/17/18 05:10 Direct Antiglob Test Negative (NEGATIVE) 12/17/18 05:10 Current Medications Piperacillin Sod/Tazobactam (Sod 3.375 gm/ Dextrose) 50 mls @ 100 mls/hr IVPB Q8H-IV BRUCE; Protocol Last Admin: 12/17/18 11:09 Dose: 100 mls/hr Lactated Ringer's (Lactated Ringers Solution) 1,000 mls @ 125 mls/hr IV ASDIR BRUCE Last Admin: 12/17/18 13:46 Dose: 125 mls/hr Morphine Sulfate (Morphine Sulfate) 2 mg IVPUSH Q4H PRN PRN Reason: PAIN LEVEL 6-10 ASSESSMENT/PLAN: 38 yo F PMH of anemia and cholelithiasis presents to ED with epigastric, RUQ pain x2 days with associated n/v/d. Pt is admitted for workup of acute cholecystitis Acute cholecystitis -transaminitis -CT abdomen:distended gallbladder -MRCP performed, awaiting results, possible ERCP may be necessary -GI and Surgery recommendations appreciated -s/p merrem in ED -c/w Zosyn as per ID recs -Will likely benefit from cholecyctectomy -NPO, IVF, pain control -UCx, BCx pending -Hep panel pending LE pain -non edematous, non erythematous -recently -venous Duplex negative Iron deficiency anemia -no signs of acute bleed, no need for transfusion. Continue to monitor -possibly dilutional -Fe supplementation when off Antibiotics -breast pump for pt -antibiotics and medications administered evaluated and should be safe for use while F/E/N -LR @ 125 mls/hr -NPO Dispo: monitor on med surg until pt is medically optimized. Visit type - Emergency Visit Emergency Visit: Yes ED Registration Date: 12/16/18 Care time: The patient presented to the Emergency Department on the above date and was hospitalized for further evaluation of their emergent condition. - New Patient This patient is new to me today: Yes Date on this admission: 12/17/18 - Critical Care Critical Care patient: No - Discharge Referral Referred to [facility] Med P.C[facility] No ATTENDING PHYSICIAN STATEMENT I saw and evaluated the patient. I reviewed the resident's note and discussed the case with the resident. I agree with the resident's findings and plan as documented. SUBJECTIVE: OBJECTIVE: ASSESSMENT AND PLAN:
[2018-12-17 18:40] LABS: ALBUMIN 2.8 g/dl (3.4-5.0); BILIRUBIN,DIRECT 0.8 mg/dL (0.0-0.2); BLOOD UREA NITROGEN 7.5 mg/dL (7-18); CALCIUM 7.8 mg/dL (8.5-10.1); CREATININE 0.5 mg/dL (0.55-1.3); POTASSIUM 3.7 mmol/L (3.5-5.1); TOT PROT 5.4 g/dl (6.4-8.2)
[2018-12-18] MEDS ORDERED: DEXTROSE 5%-WATER - 50 ML IVPB ONE ×3 (01:38→18:50)
[2018-12-18] MEDS ORDERED: PIPERACILLIN/TAZOBACTAM 3.375 GM VIAL IVPB ONE ×3 (01:38→18:50)
[2018-12-18] MEDS: LACTATED RINGERS SOLUTION 1,000 ML IV SCH ×2 (01:41→19:58)
[2018-12-18] MEDS: MORPHINE SULFATE 2 MG/ML VIAL IVPUSH PRN (01:42)
[2018-12-18] MEDS: PIPERACILLIN/TAZOB 3.375 GM 3.375 GM in DEXTROSE 5%-WATER - 50 ML IVPB SCH ×3 (01:44→18:54)
[2018-12-18 09:14] LABS: INR 1.13 (0.83-1.09); PROTHROMBIN TIME (PATIENT) 13.4 SEC (9.7-13.0)
--- NOTE | 2018-12-18 09:30 | PN ---
Progress Note, Physician History of Present Illness: patient stable no new issues - Current Medication List Current Medications: Active Medications Piperacillin Sod/Tazobactam (Sod 3.375 gm/ Dextrose) 50 mls @ 100 mls/hr IVPB Q8H-IV BRUCE; Protocol Last Admin: 12/18/18 01:44 Dose: 100 mls/hr Lactated Ringer's (Lactated Ringers Solution) 1,000 mls @ 125 mls/hr IV ASDIR BRUCE Last Admin: 12/18/18 01:41 Dose: 125 mls/hr Morphine Sulfate (Morphine Sulfate) 2 mg IVPUSH Q4H PRN PRN Reason: PAIN LEVEL 6-10 Last Admin: 12/18/18 01:42 Dose: 2 mg - Objective Vital Signs: Vital Signs Temperature 99.0 F 12/18/18 08:22 Pulse Rate 44 L 12/18/18 08:22 Respiratory Rate 16 12/18/18 08:22 Blood Pressure 98/57 L 12/18/18 08:22 O2 Sat by Pulse Oximetry (%) 98 12/17/18 22:00 Constitutional: Yes: No Distress, Calm Cardiovascular: Yes: S1, S2 Respiratory: Yes: Regular, CTA Bilaterally Gastrointestinal: Yes: Soft, Other (tenderness in the epigastric region) Musculoskeletal: Yes: WNL Extremities: Yes: WNL Neurological: Yes: Alert, Oriented Labs: CBC, BMP 12/17/18 05:10 INR, PTT INR 1.13 (0.83-1.09) H 12/18/18 07:35 Assessment/Plan Problem List - Problems (1) Biliary acute pancreatitis Code(s): K85.10 - BILIARY ACUTE PANCREATITIS WITHOUT NECROSIS OR INFECTION (2) Anemia Code(s): D64.9 - ANEMIA, UNSPECIFIED (3) Choledocholithiasis Code(s): K80.50 - CALCULUS OF BILE DUCT W/O CHOLANGITIS OR CHOLECYST W/O OBST (4) Ovarian cyst Code(s): N83.20 - UNSPECIFIED OVARIAN CYSTS * DO NOT USE * Qualifiers: Laterality: left Qualified Code(s): N83.202 - Unspecified ovarian cyst, left side plan continue current mgmt await for mrcp result nutrition rest as per the team
[2018-12-18 09:32] LABS: ALBUMIN 3.1 g/dl (3.4-5.0); BILIRUBIN,DIRECT 0.6 mg/dL (0.0-0.2); BILIRUBIN,TOTAL 1.1 mg/dL (0.2-1); BLOOD UREA NITROGEN 7.6 mg/dL (7-18); CALCIUM 8.1 mg/dL (8.5-10.1); CREATININE 0.5 mg/dL (0.55-1.3); POTASSIUM 3.4 mmol/L (3.5-5.1); TOT PROT 6.1 g/dl (6.4-8.2)
--- NOTE | 2018-12-18 11:34 | PN ---
Progress Note (short form) - Note Progress Note: GI NOte ( covering the [facility] GI service) : LFTs normalizing. MRCP reveals that the CBD stone has passed. Can proceed with lap choly or advance diet as tolerated.
--- NOTE | 2018-12-18 14:27 | PN ---
Teaching Attending Note Name of Resident: Jayne Levi ATTENDING PHYSICIAN STATEMENT I saw and evaluated the patient. I reviewed the resident's note and discussed the case with the resident. I agree with the resident's findings and plan as documented. SUBJECTIVE:pain is much improved. had some nausea last night which also improved. denies Cp, SOB, fever, chills, N/V/C/D OBJECTIVE: Last Vital Signs Temp Pulse Resp BP Pulse Ox 97.7 F 52 L 18 121/80 98 12/18/18 14:23 12/18/18 14:23 12/18/18 14:23 12/18/18 14:23 12/17/18 22:00 General NAD CV S1 S2 RRR no murmur/rub/gallop Lungs CTA B/L no wheezing/rlaes/rhonchi Abdomen soft +RUQ tenderness. no rebound or guarding +richardson sign Extremities no pedal edema. no calf tenderness ASSESSMENT AND PLAN: 38yo F wtih no PMD presented to the Er wtih abdominal pain with nausea and vomiting and now R calf pain. pt was found to have signs suggestive of acute cholecystitis with concern for choldocholithasis 1. Acute cholecystitis with concern for choledocholithasis- MRCP showing acute cholecystitis but no choldocholithasis. LFT are trending down. on zosyn day 2. no need for ERCP at this time. will need lap cholecystectomy. can advance to clear liquids as tolerated and IVF. GI and surgery on board. 2. R calf tenderness- Duplex neg for DVT 3. Microcytic anemia- acute drop is liekly dilutional component. iron studies showing iron def anemia. will need iron supplementation when off abx. hgb near baseline of previous hospital eval. no indication for transfusion 4. - safe to pump at this time 5. DVT ppx- start lovenox
--- NOTE | 2018-12-18 14:50 | PN ---
Physical Exam: SUBJECTIVE: Patient seen and examined at bedside. Pt still complains of epigastric pain and nausea. pt states that the pain is relieved with the morphine OBJECTIVE: Vital Signs Period Temp Pulse Resp BP Sys/Hu Pulse Ox Last 24 Hr 97.4 F-99.0 F 44-73 16-20 98-152/57-93 98-99 GENERAL: The patient is awake, alert, and fully oriented, in no acute distress. LUNGS: Breath sounds equal, clear to auscultation bilaterally, no wheezes, no crackles, no accessory muscle use. HEART: Regular rate and rhythm, S1, S2 without murmur, rub or gallop. ABDOMEN: Soft, tender to palpation on RUQ, nondistended, normoactive bowel sounds, no masses. EXTREMITIES: 2+ pulses, warm, well-perfused, no edema. SKIN: Warm, dry, normal turgor Laboratory Results - last 24 hr 12/17/18 12/17/18 12/18/18 05:10 17:45 07:35 PT with INR INR Sodium 145 143 Potassium 3.7 3.4 L Chloride 112 H 109 H Carbon Dioxide 21 23 Anion Gap 12 11 BUN 7.5 7.6 Creatinine 0.5 L 0.5 L Est GFR (CKD-EPI)AfAm 142.30 142.30 Est GFR (CKD-EPI)NonAf 122.78 122.78 Random Glucose 64 L 61 L Calcium 7.8 L 8.1 L Total Bilirubin 1.0 1.1 H Direct Bilirubin 0.8 H 0.6 H AST 466 H 345 H ALT 732 H 703 H Alkaline Phosphatase 156 H 178 H Total Protein 5.4 L 6.1 L Albumin 2.8 L 3.1 L Hep A IgM Ab Confirm Negative Hep Bs Antigen Negative Hep B Core IgM Ab Negative Hepatitis C Ab (EIA) <0.1 HIV 1&2 Ag/Ab, 4th Gen Non reactive 12/18/18 07:35 PT with INR 13.40 H INR 1.13 H Sodium Potassium Chloride Carbon Dioxide Anion Gap BUN Creatinine Est GFR (CKD-EPI)AfAm Est GFR (CKD-EPI)NonAf Random Glucose Calcium Total Bilirubin Direct Bilirubin AST ALT Alkaline Phosphatase Total Protein Albumin Hep A IgM Ab Confirm Hep Bs Antigen Hep B Core IgM Ab Hepatitis C Ab (EIA) HIV 1&2 Ag/Ab, 4th Gen Active Medications Generic Name Dose Route Start Last Admin Trade Name Freq PRN Reason Stop Dose Admin Enoxaparin Sodium 40 mg 12/18/18 14:30 Lovenox - SQ DAILY BRUCE Piperacillin Sod/Tazobactam 50 mls @ 100 mls/hr 12/17/18 11:00 12/18/18 14:17 Sod 3.375 gm/ Dextrose IVPB 100 mls/hr Q8H-IV BRUCE Administration Protocol Lactated Ringer's 1,000 mls @ 125 mls/hr 12/17/18 13:14 12/18/18 01:41 Lactated Ringers Solution IV 125 mls/hr ASDIR BRUCE Administration Morphine Sulfate 2 mg 12/16/18 23:47 12/18/18 01:42 Morphine Sulfate IVPUSH 2 mg Q4H PRN Administration PAIN LEVEL 6-10 MRCP: IMPRESSION: Distended gallbladder containing a gallstone in the neck/proximal cystic duct with trace pericholecystic fluid suspicious for mild/early cholecystitis. No choledocholithiasis or pancreaticobiliary ductal dilatation. Focal arterial hyperenhancement of the pancreatic head as compared to the remainder of the pancreas with no corresponding T2 signal abnormality or restricted diffusion. This could be a benign perfusion variant appearance or could be secondary to hyperemia from focal pancreatitis however other subtle underlying etiologies cannot be completely excluded. Correlate with patient's clinical history, symptoms, LFTs and amylase lipase. Follow-up MRI of the pancreas with contrast is suggested in 3 months. ASSESSMENT/PLAN: 38 yo F PMH of anemia and cholelithiasis presents to ED with epigastric, RUQ pain x2 days with associated n/v/d. Pt is admitted for workup of acute cholecystitis Acute cholecystitis -transaminitis improving -CT abdomen:distended gallbladder -MRCP performed,reviewed results, see above -stone passed, ERCP not recommended , GI recs appreciated -GI and Surgery recommendations appreciated -s/p merrem in ED -c/w Zosyn as per ID recs - IVF, pain control -UCx negative -Hep panel negative - pt scheduled for OR friday morning. pt must be strict npo LE pain -non edematous, non erythematous -recently -venous Duplex negative Iron deficiency anemia -no signs of acute bleed, no need for transfusion. Continue to monitor -possibly dilutional -Fe supplementation when off Antibiotics -breast pump for pt -antibiotics and medications administered evaluated and should be safe for use while F/E/N -LR @ 125 mls/hr -strict NPO Dispo: monitor on med surg until pt is medically optimized. Visit type - Emergency Visit Emergency Visit: No - New Patient This patient is new to me today: No - Critical Care Critical Care patient: No - Discharge Referral Referred to [facility] Med P.C[facility] No ATTENDING PHYSICIAN STATEMENT I saw and evaluated the patient. I reviewed the resident's note and discussed the case with the resident. I agree with the resident's findings and plan as documented. SUBJECTIVE: OBJECTIVE: ASSESSMENT AND PLAN:
[2018-12-18] MEDS: ENOXAPARIN NA (PORCINE) 40 MG/0.4 ML DISP.SYRIN SQ SCH (15:32)
[2018-12-19] MEDS ORDERED: PIPERACILLIN/TAZOBACTAM 3.375 GM VIAL IVPB ONE ×3 (00:52→16:20)
[2018-12-19] MEDS ORDERED: DEXTROSE 5%-WATER - 50 ML IVPB ONE ×3 (00:52→16:20)
[2018-12-19] MEDS: PIPERACILLIN/TAZOB 3.375 GM 3.375 GM in DEXTROSE 5%-WATER - 50 ML IVPB SCH ×3 (00:59→17:03)
[2018-12-19] MEDS: LACTATED RINGERS SOLUTION 1,000 ML IV SCH ×2 (04:36→19:49)
[2018-12-19 08:10] LABS: HEMATOCRIT 31.1 % (32.4-45.2); HEMOGLOBIN 10.2 GM/dL (10.7-15.3); MCH 23.7 pg (25.7-33.7); MCHC 32.7 g/dl (32.0-36.0); MEAN CELL VOLUME 72.7 fl (80-96); MEAN PLT VOLUME 10.4 fl (7.5-11.1); PLATELET COUNT 142 K/MM3 (134-434); RBC 4.28 M/mm3 (3.60-5.2); RDW 17.4 % (11.6-15.6); WHITE BLOOD COUNT 4.3 K/mm3 (4.0-10.0)
[2018-12-19 08:24] LABS: ALBUMIN 3.2 g/dl (3.4-5.0); BILIRUBIN,DIRECT 0.4 mg/dL (0.0-0.2); CALCIUM 8.3 mg/dL (8.5-10.1); CREATININE 0.6 mg/dL (0.55-1.3); POTASSIUM 3.4 mmol/L (3.5-5.1); TOT PROT 6.3 g/dl (6.4-8.2)
--- NOTE | 2018-12-19 09:24 | PN ---
Progress Note (short form) - Note Progress Note: c/o some mild epigastric tenderness but overall improved. denies CP, SOB, fever , chills, N/V/C/D not interested in or pumping at this time Current Medications Generic Name Dose Route Start Last Admin Trade Name Freq PRN Reason Stop Dose Admin Enoxaparin Sodium 40 mg 12/18/18 14:30 12/18/18 15:32 Lovenox - SQ 40 mg DAILY BRUCE Administration Piperacillin Sod/Tazobactam 50 mls @ 100 mls/hr 12/17/18 11:00 12/19/18 00:59 Sod 3.375 gm/ Dextrose IVPB 100 mls/hr Q8H-IV BRUCE Administration Protocol Lactated Ringer's 1,000 mls @ 125 mls/hr 12/17/18 13:14 12/19/18 04:36 Lactated Ringers Solution IV 125 mls/hr ASDIR BRUCE Administration Morphine Sulfate 2 mg 12/16/18 23:47 12/18/18 01:42 Morphine Sulfate IVPUSH 2 mg Q4H PRN Administration PAIN LEVEL 6-10 Last Vital Signs Temp Pulse Resp BP Pulse Ox 97.4 F L 60 14 116/78 96 12/19/18 08:11 12/19/18 08:11 12/19/18 08:11 12/19/18 08:11 12/18/18 21:00 General NAD CV S1 S2 RRR no murmur/rub/gallop Lungs CTA B/L no wheezing/rlaes/rhonchi Abdomen soft NT/ND. no rebound or guarding +richardson sign Extremities no pedal edema. no calf tenderness CBCD WBC 4.3 K/mm3 (4.0-10.0) 12/19/18 06:50 RBC 4.28 M/mm3 (3.60-5.2) 12/19/18 06:50 Hgb 10.2 GM/dL (10.7-15.3) L 12/19/18 06:50 Hct 31.1 % (32.4-45.2) L 12/19/18 06:50 MCV 72.7 fl (80-96) L 12/19/18 06:50 MCHC 32.7 g/dl (32.0-36.0) 12/19/18 06:50 RDW 17.4 % (11.6-15.6) H 12/19/18 06:50 Plt Count 142 K/MM3 (134-434) 12/19/18 06:50 MPV 10.4 fl (7.5-11.1) 12/19/18 06:50 CMP Sodium 143 mmol/L (136-145) 12/19/18 06:50 Potassium 3.4 mmol/L (3.5-5.1) L 12/19/18 06:50 Chloride 108 mmol/L (98-107) H 12/19/18 06:50 Carbon Dioxide 26 mmol/L (21-32) 12/19/18 06:50 Anion Gap 9 MMOL/L (8-16) 12/19/18 06:50 BUN 6.0 mg/dL (7-18) L 12/19/18 06:50 Creatinine 0.6 mg/dL (0.55-1.3) 12/19/18 06:50 Random Glucose 71 mg/dL (74-106) L 12/19/18 06:50 Calcium 8.3 mg/dL (8.5-10.1) L 12/19/18 06:50 Total Bilirubin 1.0 mg/dL (0.2-1) 12/19/18 06:50 AST 180 U/L (15-37) H 12/19/18 06:50 ALT 533 U/L (13-61) H 12/19/18 06:50 Alkaline Phosphatase 175 U/L (45-117) H 12/19/18 06:50 Total Protein 6.3 g/dl (6.4-8.2) L 12/19/18 06:50 Albumin 3.2 g/dl (3.4-5.0) L 12/19/18 06:50 CARDIAC ENZYMES Creatine Kinase 211 U/L (26-192) H 12/16/18 17:30 Troponin I < 0.02 ng/ml (0.00-0.05) 12/16/18 17:30 Microbiology 12/16/18 17:40 Urine Culture - Final Urine - Urine Clean Catch NO GROWTH OBTAINED ASSESSMENT AND PLAN: 38yo F wtih no PMD presented to the Er wtih abdominal pain with nausea and vomiting and now R calf pain. pt was found to have signs suggestive of acute cholecystitis with concern for choldocholithasis 1. Acute cholecystitis with concern for choledocholithasis- MRCP showing acute cholecystitis but no choldocholithasis. LFT are trending down. on syn day 3. plan for lap cholecystectomy once LFT normalize. anticipate Thursday 12/21. cont IVF. GI and surgery on board. 2. R calf tenderness- Duplex neg for DVT 3. hypokalemia- kcl in IVF 3. Microcytic anemia- acute drop is liekly dilutional component. iron studies showing iron def anemia. will need iron supplementation when off abx. hgb near baseline of previous hospital eval. no indication for transfusion 4. - safe to pump at this time however patient does not want to at this time. explained that her production will stop if does not pump even if she does not give it to the baby. verbalized understanding 5. DVT ppx- lovenox Visit type - Emergency Visit Emergency Visit: Yes ED Registration Date: 12/16/18 Care time: The patient presented to the Emergency Department on the above date and was hospitalized for further evaluation of their emergent condition. - New Patient This patient is new to me today: No - Critical Care Critical Care patient: No - Discharge Referral Referred to [facility] Med P.C.: No
[2018-12-19] MEDS: ENOXAPARIN NA (PORCINE) 40 MG/0.4 ML DISP.SYRIN SQ SCH (09:58)
[2018-12-19] MEDS: KCL 10 MEQ IVPB 10 MEQ/100 ML INFUS.BAG IVPB SCH ×2 (11:09→13:24)
--- NOTE | 2018-12-19 12:29 | PN ---
Progress Note, Physician History of Present Illness: stable no issues still with some abd pain - Current Medication List Current Medications: Active Medications Enoxaparin Sodium (Lovenox -) 40 mg SQ DAILY BRUCE Last Admin: 12/19/18 09:58 Dose: 40 mg Piperacillin Sod/Tazobactam (Sod 3.375 gm/ Dextrose) 50 mls @ 100 mls/hr IVPB Q8H-IV BRUCE; Protocol Last Admin: 12/19/18 09:58 Dose: 100 mls/hr Lactated Ringer's (Lactated Ringers Solution) 1,000 mls @ 125 mls/hr IV ASDIR BRUCE Last Admin: 12/19/18 04:36 Dose: 125 mls/hr Morphine Sulfate (Morphine Sulfate) 2 mg IVPUSH Q4H PRN PRN Reason: PAIN LEVEL 6-10 Last Admin: 12/18/18 01:42 Dose: 2 mg - Objective Vital Signs: Vital Signs Temperature 97.4 F L 12/19/18 08:11 Pulse Rate 60 12/19/18 08:11 Respiratory Rate 14 12/19/18 08:11 Blood Pressure 116/78 12/19/18 08:11 O2 Sat by Pulse Oximetry (%) 96 12/18/18 21:00 Constitutional: Yes: No Distress, Calm Cardiovascular: Yes: S1, S2 Respiratory: Yes: Regular, CTA Bilaterally Gastrointestinal: Yes: Normal Bowel Sounds, Soft, Tenderness Musculoskeletal: Yes: WNL Extremities: Yes: WNL Neurological: Yes: Alert, Oriented Psychiatric: Yes: Alert, Oriented Labs: CBC, BMP 12/19/18 06:50 12/19/18 06:50 INR, PTT INR 1.13 (0.83-1.09) H 12/18/18 07:35 Assessment/Plan Problem List - Problems (1) Biliary acute pancreatitis Code(s): K85.10 - BILIARY ACUTE PANCREATITIS WITHOUT NECROSIS OR INFECTION (2) Anemia Code(s): D64.9 - ANEMIA, UNSPECIFIED (3) Choledocholithiasis Code(s): K80.50 - CALCULUS OF BILE DUCT W/O CHOLANGITIS OR CHOLECYST W/O OBST (4) Ovarian cyst Code(s): N83.20 - UNSPECIFIED OVARIAN CYSTS * DO NOT USE * Qualifiers: Laterality: left Qualified Code(s): N83.202 - Unspecified ovarian cyst, left side plan continue current mgmt lft trending down surgery on case rest as per the team
[2018-12-20] MEDS ORDERED: PIPERACILLIN/TAZOBACTAM 3.375 GM VIAL IVPB ONE ×2 (00:33→08:16)
[2018-12-20] MEDS ORDERED: DEXTROSE 5%-WATER - 50 ML IVPB ONE ×2 (00:34→08:16)
[2018-12-20] MEDS: PIPERACILLIN/TAZOB 3.375 GM 3.375 GM in DEXTROSE 5%-WATER - 50 ML IVPB SCH ×2 (01:56→09:11)
[2018-12-20] MEDS: LACTATED RINGERS SOLUTION 1,000 ML IV SCH (03:45)
[2018-12-20] MEDS: MORPHINE SULFATE 2 MG/ML VIAL IVPUSH PRN ×2 (07:04→21:01)
[2018-12-20 08:53] LABS: HEMATOCRIT 32.6 % (32.4-45.2); HEMOGLOBIN 10.7 GM/dL (10.7-15.3); MCHC 32.8 g/dl (32.0-36.0); MEAN CELL VOLUME 73.1 fl (80-96); MEAN PLT VOLUME 10.2 fl (7.5-11.1); PLATELET COUNT 147 K/MM3 (134-434); RBC 4.47 M/mm3 (3.60-5.2); RDW 17.6 % (11.6-15.6); WHITE BLOOD COUNT 5.1 K/mm3 (4.0-10.0)
[2018-12-20] MEDS: ENOXAPARIN NA (PORCINE) 40 MG/0.4 ML DISP.SYRIN SQ SCH (09:11)
[2018-12-20 09:14] LABS: ALBUMIN 3.3 g/dl (3.4-5.0); BILIRUBIN,TOTAL 1.6 mg/dL (0.2-1); BLOOD UREA NITROGEN 5.8 mg/dL (7-18); CALCIUM 8.5 mg/dL (8.5-10.1); CREATININE 0.6 mg/dL (0.55-1.3); POTASSIUM 3.4 mmol/L (3.5-5.1); TOT PROT 6.6 g/dl (6.4-8.2)
--- NOTE | 2018-12-20 11:30 | PN ---
Physical Exam: SUBJECTIVE: Patient seen and examined at bedside. pt states she is hungry. pt states the epigastric pain is improved with morphine. OBJECTIVE: Vital Signs Period Temp Pulse Resp BP Sys/Hu Pulse Ox Last 24 Hr 98.0 F-98.6 F 44-55 14-20 118-131/64-71 96-97 GENERAL: The patient is awake, alert, and fully oriented, in no acute distress. LUNGS: Breath sounds equal, clear to auscultation bilaterally, no wheezes, no crackles, no accessory muscle use. HEART: Regular rate and rhythm, S1, S2 without murmur, rub or gallop. ABDOMEN: Soft, nontender, nondistended, normoactive bowel sounds, no guarding EXTREMITIES: 2+ pulses, warm, well-perfused, no edema. SKIN: Warm, dry, normal turgor, no rashes or lesions noted Laboratory Results - last 24 hr 12/20/18 12/20/18 07:55 07:55 WBC 5.1 RBC 4.47 Hgb 10.7 Hct 32.6 MCV 73.1 L MCH 24.0 L MCHC 32.8 RDW 17.6 H Plt Count 147 MPV 10.2 Sodium 141 Potassium 3.4 L Chloride 106 Carbon Dioxide 22 Anion Gap 13 BUN 5.8 L Creatinine 0.6 Est GFR (CKD-EPI)AfAm 134.01 Est GFR (CKD-EPI)NonAf 115.63 Random Glucose 53 L Calcium 8.5 Total Bilirubin 1.6 H AST 104 H ALT 413 H Alkaline Phosphatase 197 H Total Protein 6.6 Albumin 3.3 L Active Medications Generic Name Dose Route Start Last Admin Trade Name Freq PRN Reason Stop Dose Admin Enoxaparin Sodium 40 mg 12/18/18 14:30 12/20/18 09:11 Lovenox - SQ 40 mg DAILY BRUCE Administration Piperacillin Sod/Tazobactam 50 mls @ 100 mls/hr 12/17/18 11:00 12/20/18 09:11 Sod 3.375 gm/ Dextrose IVPB 100 mls/hr Q8H-IV BRUCE Administration Protocol Dextrose/Sodium Chloride 20 meq in 1,000 mls @ 125 mls/hr 12/20/18 11:00 Dextrose 5%-Normal Saline+20 Meq Kcl - IV ASDIR BRUCE Morphine Sulfate 2 mg 12/16/18 23:47 12/20/18 07:04 Morphine Sulfate IVPUSH 2 mg Q4H PRN Administration PAIN LEVEL 6-10 MRCP: IMPRESSION: Distended gallbladder containing a gallstone in the neck/proximal cystic duct with trace pericholecystic fluid suspicious for mild/early cholecystitis. No choledocholithiasis or pancreaticobiliary ductal dilatation. Focal arterial hyperenhancement of the pancreatic head as compared to the remainder of the pancreas with no corresponding T2 signal abnormality or restricted diffusion. This could be a benign perfusion variant appearance or could be secondary to hyperemia from focal pancreatitis however other subtle underlying etiologies cannot be completely excluded. Correlate with patient's clinical history, symptoms, LFTs and amylase lipase. Follow-up MRI of the pancreas with contrast is suggested in 3 months. ASSESSMENT/PLAN: 38 yo F PMH of anemia and cholelithiasis presents to ED with epigastric, RUQ pain x2 days with associated n/v/d. Pt is admitted for workup of acute cholecystitis Acute cholecystitis -transaminitis improving -CT abdomen:distended gallbladder -MRCP performed,reviewed results, see above -stone passed, ERCP not recommended , GI recs appreciated -GI and Surgery recommendations appreciated -s/p merrem in ED -c/w Zosyn as per ID recs - IVF, pain control -UCx negative -Hep panel negative - pt scheduled for OR friday morning. pt must be strict npo LE pain -non edematous, non erythematous -recently -venous Duplex negative Iron deficiency anemia -no signs of acute bleed, no need for transfusion. Continue to monitor -possibly dilutional -Fe supplementation when off Antibiotics -breast pump for pt -antibiotics and medications administered evaluated and should be safe for use while F/E/N -LR changed to D5 NS @ 125 mls/hr 2/2 hypoglycemia and NPO -strict NPO Dispo: monitor on med surg until pt is medically optimized. Visit type - Emergency Visit Emergency Visit: No - New Patient This patient is new to me today: No - Critical Care Critical Care patient: No - Discharge Referral Referred to [facility] Med [facility].C[facility] No ATTENDING PHYSICIAN STATEMENT I saw and evaluated the patient. I reviewed the resident's note and discussed the case with the resident. I agree with the resident's findings and plan as documented. SUBJECTIVE: OBJECTIVE: ASSESSMENT AND PLAN:
[2018-12-20] MEDS: D5-NS + 20 MEQ KCL - 20 MEQ/1,000 ML INFUS.BAG IV SCH ×2 (11:31→19:40)
--- NOTE | 2018-12-20 11:51 | PN ---
Teaching Attending Note Name of Resident: Jayne Levi ATTENDING PHYSICIAN STATEMENT I saw and evaluated the patient. I reviewed the resident's note and discussed the case with the resident. I agree with the resident's findings and plan as documented. SUBJECTIVE:asymptomatic. pain mostly resolved. denies CP, SOB,f ever, chills, N/ V/C/D OBJECTIVE: Last Vital Signs Temp Pulse Resp BP Pulse Ox 98.2 F 55 L 14 125/71 97 12/20/18 07:43 12/20/18 07:43 12/20/18 07:43 12/20/18 07:43 12/20/18 09:00 General NAD Abdomen soft NT/ND neg richardson sign ASSESSMENT AND PLAN: 38yo F wtih no PMD presented to the Er wtih abdominal pain with nausea and vomiting and now R calf pain. pt was found to have signs suggestive of acute cholecystitis with concern for choldocholithasis 1. Acute cholecystitis with concern for choledocholithasis- MRCP showing acute cholecystitis but no choldocholithasis. LFT are trending down. on zosyn day 4. plan for lap cholecystectomy once LFT normalize. NPO tonight for possible tomorrow pending continued improvement in LFT. cont IVF. GI and surgery on board. 2. hypoglycemia- asymptomatic. noted on AM labs. will switch IVF to include D5 3. R calf tenderness- Duplex neg for DVT 4. hypokalemia- kcl in IVF 5. Microcytic anemia- acute drop is liekly dilutional component. iron studies showing iron def anemia. will need iron supplementation when off abx. hgb near baseline of previous hospital eval. no indication for transfusion 6. - safe to pump at this time however patient does not want to at this time. explained that her production will stop if does not pump even if she does not give it to the baby. verbalized understanding 7. DVT ppx- lovenox
--- NOTE | 2018-12-20 12:17 | PN ---
Progress Note, Physician History of Present Illness: stable no new issues final plan awaited - Current Medication List Current Medications: Active Medications Enoxaparin Sodium (Lovenox -) 40 mg SQ DAILY BRUCE Last Admin: 12/20/18 09:11 Dose: 40 mg Piperacillin Sod/Tazobactam (Sod 3.375 gm/ Dextrose) 50 mls @ 100 mls/hr IVPB Q8H-IV BRUCE; Protocol Last Admin: 12/20/18 09:11 Dose: 100 mls/hr Dextrose/Sodium Chloride (Dextrose 5%-Normal Saline+20 Meq Kcl -) 20 meq in 1, 000 mls @ 125 mls/hr IV ASDIR BRUCE Last Admin: 12/20/18 11:31 Dose: 125 mls/hr Morphine Sulfate (Morphine Sulfate) 2 mg IVPUSH Q4H PRN PRN Reason: PAIN LEVEL 6-10 Last Admin: 12/20/18 07:04 Dose: 2 mg - Objective Vital Signs: Vital Signs Temperature 98.2 F 12/20/18 07:43 Pulse Rate 55 L 12/20/18 07:43 Respiratory Rate 14 12/20/18 07:43 Blood Pressure 125/71 12/20/18 07:43 O2 Sat by Pulse Oximetry (%) 97 12/20/18 09:00 Constitutional: Yes: No Distress, Calm Cardiovascular: Yes: Regular Rate and Rhythm Respiratory: Yes: Regular, CTA Bilaterally Gastrointestinal: Yes: Normal Bowel Sounds, Soft, Tenderness Musculoskeletal: Yes: WNL Extremities: Yes: WNL Neurological: Yes: Alert, Oriented Psychiatric: Yes: Alert, Oriented Labs: CBC, BMP 12/20/18 07:55 12/20/18 07:55 INR, PTT INR 1.13 (0.83-1.09) H 12/18/18 07:35 Assessment/Plan Problem List - Problems (1) Biliary acute pancreatitis Code(s): K85.10 - BILIARY ACUTE PANCREATITIS WITHOUT NECROSIS OR INFECTION (2) Anemia Code(s): D64.9 - ANEMIA, UNSPECIFIED (3) Choledocholithiasis Code(s): K80.50 - CALCULUS OF BILE DUCT W/O CHOLANGITIS OR CHOLECYST W/O OBST (4) Ovarian cyst Code(s): N83.20 - UNSPECIFIED OVARIAN CYSTS * DO NOT USE * Qualifiers: Laterality: left Qualified Code(s): N83.202 - Unspecified ovarian cyst, left side plan continue current mgmt lft trending down surgery on case rest as per the team will stop abx for now final plan awaited
--- NOTE | 2018-12-20 13:42 | PN ---
Progress Note, Physician Chief Complaint: RUQ abddominal pain History of Present Illness: 38 yo female PMH anemia, presents to the ED c/o of localized, nonradiating, 12/19 , RUQ abdominal pain of 1 day duration that started yesterday after meal. MRCP noted that the duct is clear. Pain has improved gradually AND transaminitis is resolving as well. - Current Medication List Current Medications: Active Medications Enoxaparin Sodium (Lovenox -) 40 mg SQ DAILY [facility] Last Admin: 12/20/18 09:11 Dose: 40 mg Dextrose/Sodium Chloride (Dextrose 5%-Normal Saline+20 Meq Kcl -) 20 meq in 1, 000 mls @ 125 mls/hr IV ASDIR BRUCE Last Admin: 12/20/18 11:31 Dose: 125 mls/hr Morphine Sulfate (Morphine Sulfate) 2 mg IVPUSH Q4H PRN PRN Reason: PAIN LEVEL 6-10 Last Admin: 12/20/18 07:04 Dose: 2 mg - Objective Vital Signs: Vital Signs Temperature 98.2 F 12/20/18 07:43 Pulse Rate 55 L 12/20/18 07:43 Respiratory Rate 14 12/20/18 07:43 Blood Pressure 125/71 12/20/18 07:43 O2 Sat by Pulse Oximetry (%) 97 12/20/18 09:00 Constitutional: Yes: Well Nourished, No Distress, Calm Eyes: Yes: Conjunctiva Clear, EOM Intact HENT: Yes: Atraumatic, Normocephalic Neck: Yes: Supple, Trachea Midline Cardiovascular: Yes: Regular Rate and Rhythm, S1, S2 Respiratory: Yes: Regular, CTA Bilaterally Gastrointestinal: Yes: Normal Bowel Sounds, Soft, Tenderness (RUQ - richardson) ...Rectal Exam: Yes: Deferred Genitourinary: No: CVA Tenderness - Left, CVA Tenderness - Right Breast(s): No: Mass, Nipple Inversion, Skin Changes Musculoskeletal: No: Muscle Pain, Muscle Weakness Extremities: No: Cool, Cyanosis Edema: No Peripheral Pulses WNL: Yes Peripheral Pulses: Left Radial: 2+, Right Radial: 2+, Left Doralis Pedis: 2+, Right Dorsalis Pedis: 2+, Left Femoral: 2+, Right Femoral: 2+ Integumentary: Yes: Jaundice. No: Rash Neurological: Yes: Alert, Oriented Psychiatric: Yes: Alert, Oriented Labs: CBC, BMP 12/20/18 07:55 12/20/18 07:55 INR, PTT INR 1.13 (0.83-1.09) H 12/18/18 07:35 Problem List - Problems (1) Biliary acute pancreatitis Assessment/Plan: 38 yo female with abdominal pain, no obstruction on MRCP, transaminitis resolving NPO and IVF hydration IV antibiotics per ID trend labs Discussed with patient risks, benefits and alternatives of laparoscopic possible open cholecystectomy and umbilical hernia repair, including but not limited to bleeding, infection, injury to adjacent structures, leak or injury, intraabdominal abscess, incisional hernia, need for further procedures, ; alternatives include antibiotics, delayed or no surgery - risks of this include failure of nonoperative therapy, perforation, sepsis, recurrence, . Patient desires to proceed with operation - will take to OR for above. Informed consent signed for same. Code(s): K85.10 - BILIARY ACUTE PANCREATITIS WITHOUT NECROSIS OR INFECTION (2) Anemia Code(s): D64.9 - ANEMIA, UNSPECIFIED Qualifiers: Anemia type: iron deficiency Iron deficiency anemia type: other iron deficiency Qualified Code(s): D50.8 - Other iron deficiency anemias (3) Choledocholithiasis Code(s): K80.50 - CALCULUS OF BILE DUCT W/O CHOLANGITIS OR CHOLECYST W/O OBST (4) Ovarian cyst Code(s): N83.20 - UNSPECIFIED OVARIAN CYSTS * DO NOT USE * Qualifiers: Laterality: left Qualified Code(s): N83.202 - Unspecified ovarian cyst, left side
[2018-12-21] MEDS: D5-NS + 20 MEQ KCL - 20 MEQ/1,000 ML INFUS.BAG IV SCH ×2 (03:25→12:15)
[2018-12-21 07:35] LABS: HEMATOCRIT 33.7 % (32.4-45.2); HEMOGLOBIN 11.1 GM/dL (10.7-15.3); MCH 24.2 pg (25.7-33.7); MCHC 32.9 g/dl (32.0-36.0); MEAN CELL VOLUME 73.4 fl (80-96); PLATELET COUNT 145 K/MM3 (134-434); RBC 4.59 M/mm3 (3.60-5.2); RDW 17.5 % (11.6-15.6); WHITE BLOOD COUNT 4.4 K/mm3 (4.0-10.0)
[2018-12-21 07:46] LABS: BLOOD UREA NITROGEN 4.8 mg/dL (7-18); CREATININE 0.6 mg/dL (0.55-1.3)
[2018-12-21 07:47] LABS: ALBUMIN 3.2 g/dl (3.4-5.0); BILIRUBIN,TOTAL 1.5 mg/dL (0.2-1); CALCIUM 8.4 mg/dL (8.5-10.1); MAGNESIUM 1.6 mg/dL (1.8-2.4); PHOSPHOROUS 3.8 mg/dL (2.5-4.9); TOT PROT 6.4 g/dl (6.4-8.2)
[2018-12-21] MEDS ORDERED: ONDANSETRON 4 MG/2 ML VIAL IVPUSH PRN (09:01)
[2018-12-21] MEDS ORDERED: PROMETHAZINE HCL 25 MG/1 ML VIAL IVPB PRN (09:01)
[2018-12-21] MEDS ORDERED: MAGNESIUM SULF 50% (8.12 MEQ/2 ML-1 GM VIAL) IVPB ONE ×2 (09:15→11:11)
[2018-12-21] MEDS ORDERED: LACTATED RINGERS SOLUTION 1,000 ML IV SCH (09:15)
[2018-12-21] MEDS ORDERED: BUPIVACAINE HCL/PF 0.5% (5 MG/ML) 30 ML VIAL IJ ONE (09:53)
--- NOTE | 2018-12-21 09:58 | PN ---
Progress Note, Physician - Current Medication List Current Medications: Active Medications Fentanyl (Sublimaze Injection -) 50 mcg IVPUSH [id number] PRN PRN Reason: PAIN-PACU ORDER X 4 DOSES ONLY Stop: 12/22/18 09:00 Dextrose/Sodium Chloride (Dextrose 5%-Normal Saline+20 Meq Kcl -) 20 meq in 1, 000 mls @ 125 mls/hr IV ASDIR BRUCE Last Admin: 12/21/18 03:25 Dose: 125 mls/hr Lactated Ringer's (Lactated Ringers Solution) 1,000 mls @ 125 mls/hr IV ASDIR BRUCE Piperacillin Sod/Tazobactam (Sod 3.375 gm/ Dextrose) 50 mls @ 100 mls/hr IVPB Q8H-IV BRUCE; Protocol Morphine Sulfate (Morphine Sulfate) 2 mg IVPUSH Q4H PRN PRN Reason: PAIN LEVEL 6-10 Last Admin: 12/20/18 21:01 Dose: 2 mg Ondansetron HCl (Zofran Injection) 4 mg IVPUSH Q6H PRN PRN Reason: NAUSEA AND/OR VOMITING Promethazine HCl (Phenergan Injection -) 12.5 mg IVPB Q6H PRN PRN Reason: NAUSEA-FOR RESCUE AFTER 15 MIN Stop: 12/22/18 09:00 - Objective Vital Signs: Vital Signs Temperature 98.5 F 12/21/18 06:00 Pulse Rate 50 L 12/21/18 06:00 Respiratory Rate 20 12/21/18 06:00 Blood Pressure 108/64 12/21/18 06:00 O2 Sat by Pulse Oximetry (%) 97 12/20/18 22:00 Labs: CBC, BMP 12/21/18 06:22 12/21/18 06:22 INR, PTT INR 1.13 (0.83-1.09) H 12/18/18 07:35
[2018-12-21] MEDS ORDERED: PIPERACILLIN/TAZOB 3.375 GM 3.375 GM in DEXTROSE 5%-WATER - 50 ML IVPB SCH (10:00)
--- NOTE | 2018-12-21 11:06 | OP ---
Operative Note - Note: Operative Date: 12/21/18 Pre-Operative Diagnosis: umbilical hernia, transaminitis and cholecystitis Operation: laparoscopic cholecystectomy and umbilcal hernia repair Findings: tortuous distended gallbladder, critical view identified Post-Operative Diagnosis: Same as Pre-op Surgeon: James Cruz Couture Dressmaker: Javier Cheema Anesthesiologist/HAND I BLOCKER: Bryan Dias Anesthesia: General, Local (0.5% marcaine 20ml) Specimens Removed: umbical hernia sac, gallbladder Estimated Blood Loss (mls): 20 Fluid Volume Replaced (mls): 400 (crystalloid) Operative Report Dictated: Yes
--- NOTE | 2018-12-21 11:18 | EKG ---
Test Reason : Blood Pressure : / mmHG Vent. Rate : 048 BPM Atrial Rate : 048 BPM P-R Int : 168 ms QRS Dur : 122 ms QT Int : 500 ms P-R-T Axes : 030 -02 016 degrees QTc Int : 446 ms SINUS BRADYCARDIA WITH PREMATURE ATRIAL COMPLEXES IN A PATTERN OF BIGEMINY NON-SPECIFIC INTRA-VENTRICULAR CONDUCTION DELAY BORDERLINE ECG WHEN COMPARED WITH ECG OF 16-DEC-2018 16:37, PREMATURE ATRIAL COMPLEXES ARE NOW PRESENT Confirmed by IVELISSE SOLIS, KIERA ([id number]) on 12/21/2018 11:18:39 AM Referred By: Confirmed By:KIERA OVIEDO MD
--- NOTE | 2018-12-21 13:09 | PN ---
Teaching Attending Note Name of Resident: Jayne Levi ATTENDING PHYSICIAN STATEMENT I saw and evaluated the patient. I reviewed the resident's note and discussed the case with the resident. I agree with the resident's findings and plan as documented. SUBJECTIVE:seen after surgery. sleepy but easily arrousable. no complaints. OBJECTIVE: Last Vital Signs Temp Pulse Resp BP Pulse Ox 98.3 F 68 18 123/70 95 12/21/18 12:16 12/21/18 12:16 12/21/18 12:16 12/21/18 12:16 12/21/18 12:16 General NAD Abdomen soft diffusely tender. +surgical dressings c/d/i ASSESSMENT AND PLAN: 38yo F wtih no PMD presented to the ER wtih abdominal pain with nausea and vomiting and now R calf pain. pt was found to have signs suggestive of acute cholecystitis with concern for choldocholithasis 1. Acute cholecystitis with concern for choledocholithasis- MRCP showing acute cholecystitis but no choldocholithasis. s/p laprasocopic cholecystectomy. tolerated surgery well. will trend LFT. advance diet as tolerated. now off abx. will d/c IVF is tolerating food. GI and surgery on board. 2. hypoglycemia- no repeat epiosodes. will advance diet 3. R calf tenderness- Duplex neg for DVT 4. hypokalemia- kcl in IVF 5. Hypomagnesemia- Mg IV 5. Microcytic anemia- acute drop is liekly dilutional component. iron studies showing iron def anemia. will need iron supplementation when off abx. hgb near baseline of previous hospital eval. no indication for transfusion 6. - safe to pump at this time however patient does not want to at this time. explained that her production will stop if does not pump even if she does not give it to the baby. verbalized understanding 7. DVT ppx- lovenox 8. will monitor for additional 24H. if LFT trending down possible d/c tomorrow
--- NOTE | 2018-12-21 14:19 | PN ---
Physical Exam: SUBJECTIVE: Patient seen and examined at bedside. pt has no acute complaints OBJECTIVE: Vital Signs Period Temp Pulse Resp BP Sys/Hu Pulse Ox Last 24 Hr 98 F-98.5 F 45-79 16-20 108-131/53-71 94-98 GENERAL: The patient is awake, alert, and fully oriented, in no acute distress. LUNGS: Breath sounds equal, clear to auscultation bilaterally, no wheezes, no crackles, no accessory muscle use. HEART: Regular rate and rhythm, S1, S2 without murmur, rub or gallop. ABDOMEN: Soft, nontender, nondistended, normoactive bowel sounds, no guarding EXTREMITIES: 2+ pulses, warm, well-perfused, no edema. SKIN: Warm, dry, normal turgor, no rashes or lesions noted Laboratory Results - last 24 hr 12/21/18 12/21/18 06:22 06:22 WBC 4.4 RBC 4.59 Hgb 11.1 Hct 33.7 MCV 73.4 L MCH 24.2 L MCHC 32.9 RDW 17.5 H Plt Count 145 MPV 10.0 Sodium 142 Potassium 4.0 Chloride 109 H Carbon Dioxide 27 Anion Gap 7 L BUN 4.8 L Creatinine 0.6 Est GFR (CKD-EPI)AfAm 134.01 Est GFR (CKD-EPI)NonAf 115.63 Random Glucose 109 H Calcium 8.4 L Phosphorus 3.8 Magnesium 1.6 L Total Bilirubin 1.5 H Direct Bilirubin 1.0 H AST 109 H ALT 344 H Alkaline Phosphatase 175 H Total Protein 6.4 Albumin 3.2 L Active Medications Generic Name Dose Route Start Last Admin Trade Name Freq PRN Reason Stop Dose Admin Dextrose/Sodium Chloride 20 meq in 1,000 mls @ 125 mls/hr 12/21/18 11:11 04/29 12:15 Dextrose 5%-Normal Saline+20 Meq Kcl - IV 125 mls/hr ASDIR BRUCE Administration Piperacillin Sod/Tazobactam 50 mls @ 100 mls/hr 12/21/18 18:00 Sod 3.375 gm/ Dextrose IVPB Q8H-IV BRUCE Protocol Morphine Sulfate 2 mg 12/21/18 11:11 Morphine Sulfate IVPUSH Q4H PRN PAIN LEVEL 6-10 MRCP: IMPRESSION: Distended gallbladder containing a gallstone in the neck/proximal cystic duct with trace pericholecystic fluid suspicious for mild/early cholecystitis. No choledocholithiasis or pancreaticobiliary ductal dilatation. Focal arterial hyperenhancement of the pancreatic head as compared to the remainder of the pancreas with no corresponding T2 signal abnormality or restricted diffusion. This could be a benign perfusion variant appearance or could be secondary to hyperemia from focal pancreatitis however other subtle underlying etiologies cannot be completely excluded. Correlate with patient's clinical history, symptoms, LFTs and amylase lipase. Follow-up MRI of the pancreas with contrast is suggested in 3 months. ASSESSMENT/PLAN: 38 yo F PMH of anemia and cholelithiasis presents to ED with epigastric, RUQ pain x2 days with associated n/v/d. Pt is admitted for workup of acute cholecystitis Acute cholecystitis -transaminitis improving -CT abdomen:distended gallbladder -MRCP performed,reviewed results, see above -stone passed, ERCP not recommended , GI recs appreciated -GI and Surgery recommendations appreciated -s/p merrem in ED -c/w Zosyn (day 4) as per ID recs - IVF, pain control -UCx negative -Hep panel negative - pt s/p lap cholecystectomy, umbilical hernia repair LE pain -non edematous, non erythematous -recently -venous Duplex negative Iron deficiency anemia -no signs of acute bleed, no need for transfusion. Continue to monitor -possibly dilutional -Fe supplementation when off Antibiotics -breast pump for pt -antibiotics and medications administered evaluated and should be safe for use while F/E/N -consider advancing to clear liquids Dispo: monitor on med surg until pt is medically optimized. Visit type - Emergency Visit Emergency Visit: No - New Patient This patient is new to me today: No - Critical Care Critical Care patient: No - Discharge Referral Referred to [facility] Med P.C.: No ATTENDING PHYSICIAN STATEMENT I saw and evaluated the patient. I reviewed the resident's note and discussed the case with the resident. I agree with the resident's findings and plan as documented. SUBJECTIVE: OBJECTIVE: ASSESSMENT AND PLAN:
[2018-12-21] MEDS ORDERED: PIPERACILLIN/TAZOBACTAM 3.375 GM VIAL IVPB ONE (16:52)
[2018-12-21] MEDS ORDERED: DEXTROSE 5%-WATER - 50 ML IVPB ONE (16:52)
[2018-12-21] MEDS: PIPERACILLIN/TAZOB 3.375 GM 3.375 GM in DEXTROSE 5%-WATER - 50 ML IVPB SCH (17:15)
[2018-12-21] MEDS: MORPHINE SULFATE 2 MG/ML VIAL IVPUSH PRN (17:47)
[2018-12-22] MEDS: MORPHINE SULFATE 2 MG/ML VIAL IVPUSH PRN ×2 (01:02→14:45)
[2018-12-22] MEDS ORDERED: DEXTROSE 5%-WATER - 50 ML IVPB ONE ×3 (01:24→17:10)
[2018-12-22] MEDS ORDERED: PIPERACILLIN/TAZOBACTAM 3.375 GM VIAL IVPB ONE ×3 (01:24→17:10)
[2018-12-22] MEDS: PIPERACILLIN/TAZOB 3.375 GM 3.375 GM in DEXTROSE 5%-WATER - 50 ML IVPB SCH ×3 (01:30→19:08)
[2018-12-22 09:22] LABS: BASO % 0.6 % (0-2.0); EOS % 0.6 % (0-4.5); HEMATOCRIT 33.3 % (32.4-45.2); HEMOGLOBIN 10.8 GM/dL (10.7-15.3); MCH 23.9 pg (25.7-33.7); MCHC 32.5 g/dl (32.0-36.0); MEAN CELL VOLUME 73.5 fl (80-96); MEAN PLT VOLUME 10.4 fl (7.5-11.1); MONO % 7.2 % (3.8-10.2); NEUT % 74.6 % (42.8-82.8); PLATELET COUNT 156 K/MM3 (134-434); RBC 4.53 M/mm3 (3.60-5.2); RDW 17.4 % (11.6-15.6); WHITE BLOOD COUNT 5.5 K/mm3 (4.0-10.0)
[2018-12-22 09:56] LABS: LIPASE 446 U/L (73-393); MAGNESIUM 1.9 mg/dL (1.8-2.4); PHOSPHOROUS 3.5 mg/dL (2.5-4.9)
[2018-12-22 10:01] LABS: ALBUMIN 3.1 g/dl (3.4-5.0); BILIRUBIN,TOTAL 2.4 mg/dL (0.2-1); BLOOD UREA NITROGEN 6.1 mg/dL (7-18); CALCIUM 8.2 mg/dL (8.5-10.1); CREATININE 0.7 mg/dL (0.55-1.3); POTASSIUM 3.8 mmol/L (3.5-5.1); TOT PROT 6.3 g/dl (6.4-8.2)
[2018-12-22] MEDS ORDERED: PANTOPRAZOLE 40 MG TABLET (FP) PO SCH (11:15)
--- NOTE | 2018-12-22 11:54 | PN ---
Progress Note (short form) - Note Progress Note: Anesthesia postop note 38 y/o F s/p GA for Laparoscopic cholecystectomy POD#1, vss, aaox3, no complaints. No anesthesia complications.
--- NOTE | 2018-12-22 12:30 | PN ---
Progress Note, Physician History of Present Illness: stable no new issues - Current Medication List Current Medications: Active Medications Dextrose/Sodium Chloride (Dextrose 5%-Normal Saline+20 Meq Kcl -) 20 meq in 1, 000 mls @ 125 mls/hr IV ASDIR BRUCE Last Admin: 12/21/18 12:15 Dose: 125 mls/hr Piperacillin Sod/Tazobactam (Sod 3.375 gm/ Dextrose) 50 mls @ 100 mls/hr IVPB Q8H-IV BRUCE; Protocol Last Admin: 12/22/18 10:05 Dose: 100 mls/hr Morphine Sulfate (Morphine Sulfate) 2 mg IVPUSH Q4H PRN PRN Reason: PAIN LEVEL 7 - 10 Oxycodone HCl (Roxicodone -) 5 mg PO Q6H PRN PRN Reason: PAIN LEVEL 6-10 - Objective Vital Signs: Vital Signs Temperature 98.1 F 12/22/18 05:55 Pulse Rate 59 L 12/22/18 05:55 Respiratory Rate 18 12/22/18 05:55 Blood Pressure 104/52 L 12/22/18 05:55 O2 Sat by Pulse Oximetry (%) 95 12/21/18 21:00 Constitutional: Yes: No Distress, Calm Cardiovascular: Yes: Regular Rate and Rhythm Respiratory: Yes: Regular, CTA Bilaterally Gastrointestinal: Yes: Normal Bowel Sounds, Soft Musculoskeletal: Yes: WNL Extremities: Yes: WNL Neurological: Yes: Alert, Oriented Psychiatric: Yes: Alert, Oriented Labs: CBC, BMP 12/22/18 08:05 12/22/18 08:05 INR, PTT INR 1.13 (0.83-1.09) H 12/18/18 07:35 Assessment/Plan Problem List - Problems (1) Biliary acute pancreatitis Code(s): K85.10 - BILIARY ACUTE PANCREATITIS WITHOUT NECROSIS OR INFECTION (2) Anemia Code(s): D64.9 - ANEMIA, UNSPECIFIED (3) Choledocholithiasis Code(s): K80.50 - CALCULUS OF BILE DUCT W/O CHOLANGITIS OR CHOLECYST W/O OBST (4) Ovarian cyst Code(s): N83.20 - UNSPECIFIED OVARIAN CYSTS * DO NOT USE * Qualifiers: Laterality: left Qualified Code(s): N83.202 - Unspecified ovarian cyst, left side plan continue current mgmt will stop abx monitor rest as per the team
--- NOTE | 2018-12-22 12:52 | EKG ---
Test Reason : Blood Pressure : / mmHG Vent. Rate : 051 BPM Atrial Rate : 051 BPM P-R Int : 184 ms QRS Dur : 118 ms QT Int : 454 ms P-R-T Axes : 038 -05 014 degrees QTc Int : 418 ms SINUS BRADYCARDIA INCOMPLETE RIGHT BUNDLE BRANCH BLOCK BORDERLINE ECG WHEN COMPARED WITH ECG OF 17-DEC-2018 17:45, PREMATURE ATRIAL COMPLEXES ARE NO LONGER PRESENT Confirmed by MD Kristen, Dick ([id number]) on 12/22/2018 12:52:45 PM Referred By: DARRIAN CHEN Confirmed By:Dick Peterson MD
[2018-12-22] MEDS: D5-NS + 20 MEQ KCL - 20 MEQ/1,000 ML INFUS.BAG IV SCH (13:04)
--- NOTE | 2018-12-22 13:49 | PN ---
Physical Exam: SUBJECTIVE: Patient seen and examined at bedside. Pt states she has a headache. she said she is also having epigastric pain and RUQ and RLQ pain. Pt states she does not have an appetite. She states yesterday she passed gas yesterday OBJECTIVE: Vital Signs Period Temp Pulse Resp BP Sys/Hu Pulse Ox Last 24 Hr 98 F-98.9 F 50-74 16-20 104-117/52-65 95 GENERAL: The patient is awake, alert, and fully oriented, in no acute distress. LUNGS: Breath sounds equal, clear to auscultation bilaterally, no wheezes, no crackles, no accessory muscle use. HEART: Regular rate and rhythm, S1, S2 without murmur, rub or gallop. ABDOMEN: Soft, tender RUQ, RLQ. nondistended, normoactive bowel sounds EXTREMITIES: 2+ pulses, warm, well-perfused, no edema. SKIN: Warm, dry, normal turgor, no rashes or lesions noted Laboratory Results - last 24 hr 12/22/18 12/22/18 12/22/18 01:05 08:05 08:05 WBC RBC Hgb Hct MCV MCH MCHC RDW Plt Count MPV Absolute Neuts (auto) Neutrophils % Lymphocytes % Monocytes % Eosinophils % Basophils % Nucleated RBC % Sodium 144 Potassium 3.8 Chloride 111 H Carbon Dioxide 25 Anion Gap 8 BUN 6.1 L Creatinine 0.7 Est GFR (CKD-EPI)AfAm 127.39 Est GFR (CKD-EPI)NonAf 109.91 Random Glucose 130 H Calcium 8.2 L Phosphorus 3.5 Magnesium 1.9 Total Bilirubin 2.4 H AST 289 H ALT 501 H Alkaline Phosphatase 189 H Troponin I < 0.02 < 0.02 Total Protein 6.3 L Albumin 3.1 L Lipase 446 H 12/22/18 08:05 WBC 5.5 RBC 4.53 Hgb 10.8 Hct 33.3 MCV 73.5 L MCH 23.9 L MCHC 32.5 RDW 17.4 H Plt Count 156 MPV 10.4 Absolute Neuts (auto) 4.1 Neutrophils % 74.6 D Lymphocytes % 17.0 D Monocytes % 7.2 Eosinophils % 0.6 Basophils % 0.6 Nucleated RBC % 0 Sodium Potassium Chloride Carbon Dioxide Anion Gap BUN Creatinine Est GFR (CKD-EPI)AfAm Est GFR (CKD-EPI)NonAf Random Glucose Calcium Phosphorus Magnesium Total Bilirubin AST ALT Alkaline Phosphatase Troponin I Total Protein Albumin Lipase Active Medications Generic Name Dose Route Start Last Admin Trade Name Freq PRN Reason Stop Dose Admin Dextrose/Sodium Chloride 20 meq in 1,000 mls @ 125 mls/hr 12/21/18 11:11 13:04 Dextrose 5%-Normal Saline+20 Meq Kcl - IV 125 mls/hr ASDIR BRUCE Administration Morphine Sulfate 2 mg 12/22/18 11:47 Morphine Sulfate IVPUSH Q4H PRN PAIN LEVEL 7 - 10 Oxycodone HCl 5 mg 12/22/18 10:55 Roxicodone - PO Q6H PRN PAIN LEVEL 6-10 MRCP: IMPRESSION: Distended gallbladder containing a gallstone in the neck/proximal cystic duct with trace pericholecystic fluid suspicious for mild/early cholecystitis. No choledocholithiasis or pancreaticobiliary ductal dilatation. Focal arterial hyperenhancement of the pancreatic head as compared to the remainder of the pancreas with no corresponding T2 signal abnormality or restricted diffusion. This could be a benign perfusion variant appearance or could be secondary to hyperemia from focal pancreatitis however other subtle underlying etiologies cannot be completely excluded. Correlate with patient's clinical history, symptoms, LFTs and amylase lipase. Follow-up MRI of the pancreas with contrast is suggested in [address] abdomen:Impression: No CT evidence of an acute process is seen within the abdomen and pelvis. Adequately distended gallbladder with a phrygian cap and without gross evidence of wall thickening or intraluminal stones. Tiny fat- containing umbilical hernia. Normal-appearing appendix. Intrauterine device in satisfactory position. ASSESSMENT/PLAN: 38 yo F PMH of anemia and cholelithiasis presents to ED with epigastric, RUQ pain x2 days with associated n/v/d. Pt is admitted for workup of acute cholecystitis Transaminitis -possibly 2/2 bile leak vs choledocolithiasis -pt is s/p lap cholecystectomy, umbilical hernia repair 12/21/18 -transaminitis was downtrending prior to surgery(12/21/18) . Todays labs show increasing transaminitis. -Tbili increasing -CT abdomen:see above -MRCP performed prior to lap cholecystectomy ,reviewed results, see above -awaiting HIDA -GI recs appreciated -NPO overnight as pt may need ERCP tomorrow -Surgery recommendations appreciated -s/p merrem in ED -c/w Zosyn (day 5) as per ID recs -IVF, pain control w/ IV morphine -UCx negative -Hep panel negative LE pain -non edematous, non erythematous -recently -venous Duplex negative Iron deficiency anemia -no signs of acute bleed, no need for transfusion. Continue to monitor -possibly dilutional -Fe supplementation when off Antibiotics -breast pump for pt -antibiotics and medications administered evaluated and should be safe for use while F/E/N -NPO after midnight -D5 NS Dispo: monitor on med surg until pt is medically optimized. Visit type - Emergency Visit Emergency Visit: No - New Patient This patient is new to me today: No - Critical Care Critical Care patient: No - Discharge Referral Referred to [facility] Med P.C.: No ATTENDING PHYSICIAN STATEMENT I saw and evaluated the patient. I reviewed the resident's note and discussed the case with the resident. I agree with the resident's findings and plan as documented. SUBJECTIVE: OBJECTIVE: ASSESSMENT AND PLAN:
--- NOTE | 2018-12-22 14:10 | PN ---
Teaching Attending Note Name of Resident: Jayne Levi ATTENDING PHYSICIAN STATEMENT I saw and evaluated the patient. I reviewed the resident's note and discussed the case with the resident. I agree with the resident's findings and plan as documented. SUBJECTIVE: Complains of ongoing RUQ pain/tenderness/nausea. No vomiting/fever/ chills. OBJECTIVE: Afebrile, Hemodynamically Stable. Last Vital Signs Temp Pulse Resp BP Pulse Ox 98.1 F 59 L 18 104/52 L 95 12/22/18 05:55 12/22/18 05:55 12/22/18 05:55 12/22/18 05:55 12/21/18 21:00 HEENT - Atramatic, Normocephalic. Heart - S1, S2, RRR Lungs - clear to auscultation Abdomen - soft, tender RUQ/epigastrum. Trochar sites dressed - dressings C/D/I Extremities - no edema, no calf tenderness. Laboratory Results - last 24 hr 12/22/18 12/22/18 12/22/18 01:05 08:05 08:05 WBC RBC Hgb Hct MCV MCH MCHC RDW Plt Count MPV Absolute Neuts (auto) Neutrophils % Lymphocytes % Monocytes % Eosinophils % Basophils % Nucleated RBC % Sodium 144 Potassium 3.8 Chloride 111 H Carbon Dioxide 25 Anion Gap 8 BUN 6.1 L Creatinine 0.7 Est GFR (CKD-EPI)AfAm 127.39 Est GFR (CKD-EPI)NonAf 109.91 Random Glucose 130 H Calcium 8.2 L Phosphorus 3.5 Magnesium 1.9 Total Bilirubin 2.4 H AST 289 H ALT 501 H Alkaline Phosphatase 189 H Troponin I < 0.02 < 0.02 Total Protein 6.3 L Albumin 3.1 L Lipase 446 H 12/22/18 08:05 WBC 5.5 RBC 4.53 Hgb 10.8 Hct 33.3 MCV 73.5 L MCH 23.9 L MCHC 32.5 RDW 17.4 H Plt Count 156 MPV 10.4 Absolute Neuts (auto) 4.1 Neutrophils % 74.6 D Lymphocytes % 17.0 D Monocytes % 7.2 Eosinophils % 0.6 Basophils % 0.6 Nucleated RBC % 0 Sodium Potassium Chloride Carbon Dioxide Anion Gap BUN Creatinine Est GFR (CKD-EPI)AfAm Est GFR (CKD-EPI)NonAf Random Glucose Calcium Phosphorus Magnesium Total Bilirubin AST ALT Alkaline Phosphatase Troponin I Total Protein Albumin Lipase Current Medications Generic Name Dose Route Start Last Admin Trade Name Freq PRN Reason Stop Dose Admin Dextrose/Sodium Chloride 20 meq in 1,000 mls @ 125 mls/hr 12/21/18 11:11 13:04 Dextrose 5%-Normal Saline+20 Meq Kcl - IV 125 mls/hr ASDIR BRUCE Administration Morphine Sulfate 2 mg 12/22/18 11:47 Morphine Sulfate IVPUSH Q4H PRN PAIN LEVEL 7 - 10 Oxycodone HCl 5 mg 12/22/18 10:55 Roxicodone - PO Q6H PRN PAIN LEVEL 6-10 ASSESSMENT AND PLAN 38 year olf female with no significant PMH, presented with abdominal pain, nausea, vomiting, found to have acute cholecystitis. 1. Acute Cholecystitis - POD 1 s/p Laparocopic Cholecystectomy MRCP prior to surgery showed acute cholecystitis but no choledocholithasis Nauseous, not yet tolerating oral intake. LFTs rising including Bilirbin and Transaminases. Discussed with GI - for HIDA and possible ERCP. Off Abx. Oxycodone PRN. 2. Iron deficiency Anemia - Iron Sat 7 - for out-patient work-up. Will start FeSO4 supplementation. DVT Px - Lovenox SQ
[2018-12-22] MEDS ORDERED: DOCUSATE SODIUM 100 MG CAPSULE (FP) PO PRN (14:13)
--- NOTE | 2018-12-22 14:19 | PN.GI ---
GI Progress Note Subjective: GI NOte: Called to see Ashia for LFTs that have started to rise following her lap choly. She continues to have pain. I conducted this discussion with [employer] take up supervisor Robert # [id number]. I have told her that I suspect that she has residual stones in the CBD. A bile leak is a less likely possibility. I have advised her to undergo an ERCP to remove the stones or to place a stent if the stones are too large or if a leak is found. I have informed her of the potential for such complications as perforation and hemorrhage as well as multiorgan failure related to ERCP induced pancreatitis. After I answered her question through the take up supervisor she signed an informed consent. - Objective Vital Signs: Vital Signs Temperature 98.1 F 12/22/18 05:55 Pulse Rate 59 L 12/22/18 05:55 Respiratory Rate 18 12/22/18 05:55 Blood Pressure 104/52 L 12/22/18 05:55 O2 Sat by Pulse Oximetry (%) 95 12/21/18 21:00 Laboratory Tests 12/19/18 12/20/18 12/21/18 06:50 07:55 06:22 Total Bilirubin 1.0 1.6 H 1.5 H Direct Bilirubin 0.4 H 1.0 H AST 180 H 104 H 109 H ALT 533 H 413 H 344 H Alkaline Phosphatase 175 H 197 H 175 H Albumin Lipase 12/22/18 12/22/18 08:05 08:05 Total Bilirubin 2.4 H Direct Bilirubin AST 289 H ALT 501 H Alkaline Phosphatase 189 H Albumin 3.1 L Lipase 446 H Constitutional: Anxious Gastrointestinal Inspection: Yes: Scars (healing lap choly incisions) ...Auscultate: Yes: Hypoactive Bowel Sounds ...Palpate: Yes: Soft, Other (mild tenderness) Labs: CBC, BMP 12/22/18 08:05 12/22/18 08:05 INR, PTT INR 1.13 (0.83-1.09) H 12/18/18 07:35 Assessment/Plan Assessment: - Jaundice and rising LFTs due to CBD stones - s/p Lap choly Plan: -- Hida scan to confirm bile duct obstruction and exclude a bowel duct leak -- For ERCP tomorrow. -- Continue antibiotics Problem List - Problems (1) Jaundice Code(s): R17 - UNSPECIFIED JAUNDICE (2) Choledocholithiasis Code(s): K80.50 - CALCULUS OF BILE DUCT W/O CHOLANGITIS OR CHOLECYST W/O OBST (3) Abdominal pain Code(s): R10.9 - UNSPECIFIED ABDOMINAL PAIN Qualifiers: Abdominal location: right upper quadrant Qualified Code(s): R10.11 - Right upper quadrant pain
[2018-12-22] MEDS ORDERED: LACTATED RINGERS SOLUTION 1,000 ML/1,000 ML INFUS.BAG IV SCH (14:45)
--- NOTE | 2018-12-22 16:37 | PATH ---
Surgical Pathology Report Patient Name: MACKENZIE TOLENTINO [facility]. Rec. #: [id number] /Age/Gender: 1980 (Age: 38) / F Account: [id number] Location: [address] [place] [address] Taken: 12/21/2018 Received: 12/21/2018 Reported: 12/22/2018 Physicians: Edilia Dee M.D. Specimen(s) Received A: UMBILICAL HERNIA SAC B: GALLBLADDER Clinical History None given Final Diagnosis A. UMBILICAL HERNIA SAC, HERNIA REPAIR: FIBROADIPOSE TISSUE COMPATIBLE WITH HERNIA SAC. B. GALLBLADDER, LAPAROSCOPIC CHOLECYSTECTOMY: CHRONIC CHOLECYSTITIS, CHOLELITHIASIS, AND CHOLESTEROLOSIS. Electronically Signed Felipa Phillips M.D. Gross Description A. Received in formalin labeled "umbilical hernia sac," is a 2.3 x 1.6 x 1.0 cm ordaz portion of fibrous tissue with attached fat, consistent with a hernia sac. Early Childhood Associate sections are submitted in one cassette. B. Received in formalin, labeled "gallbladder," is a 7.8 x 2.7 x 2.1 cm. gallbladder with a 0.2 cm. in length portion of cystic duct attached. The outer surface is green with a focal defect and varies from smooth to shaggy. The lumen contains green, tenacious bile as well as a 0.5 cm in greatest dimension yellow, spherical cholelith. The mucosa is dark green and velvety with gold cholesterol stippling. The wall of the gallbladder measures 0.1 cm. in thickness. Early Childhood Associate sections are submitted in one cassette. /12/21/2018 saudi12/21/2018
[2018-12-22] MEDS: FERROUS SO4 325 MG TABLET (FP) PO SCH (21:21)
[2018-12-23] MEDS ORDERED: PIPERACILLIN/TAZOBACTAM 3.375 GM VIAL IVPB ONE ×3 (00:57→17:10)
[2018-12-23] MEDS ORDERED: DEXTROSE 5%-WATER - 50 ML IVPB ONE ×3 (00:57→17:10)
[2018-12-23] MEDS: PIPERACILLIN/TAZOB 3.375 GM 3.375 GM in DEXTROSE 5%-WATER - 50 ML IVPB SCH ×4 (01:02→17:33)
[2018-12-23] MEDS: oxyCODONE HCL 5 MG TABLET PO PRN (01:38)
[2018-12-23] MEDS ORDERED: ONDANSETRON 4 MG/2 ML VIAL IVPB ONE (05:34)
--- NOTE | 2018-12-23 05:34 | PN ---
Progress Note, Physician Chief Complaint: RUQ abddominal pain History of Present Illness: 38 yo female PMH anemia, presents to the ED c/o of localized, nonradiating, 12/19 , RUQ abdominal pain of 1 day duration that started yesterday after meal. MRCP noted that the duct is clear. Pain has improved gradually AND transaminitis is resolving as well. - Current Medication List Current Medications: Active Medications Docusate Sodium (Colace -) 100 mg PO Q12H PRN PRN Reason: CONSTIPATION Ferrous Sulfate (Feosol -) 325 mg PO BID BRUCE Last Admin: 12/22/18 21:21 Dose: 325 mg Piperacillin Sod/Tazobactam (Sod 3.375 gm/ Dextrose) 50 mls @ 100 mls/hr IVPB Q8H-IV BRUCE; Protocol Lactated Ringer's (Lactated Ringers Solution) 1,000 ml in 1,000 mls @ 150 mls/ hr IV ASDIR BRUCE Last Admin: 12/22/18 19:07 Dose: 150 mls/hr Piperacillin Sod/Tazobactam (Sod 3.375 gm/ Dextrose) 50 mls @ 100 mls/hr IVPB Q8H-IV BRUCE; Protocol Stop: 12/23/18 10:29 Last Admin: 12/23/18 01:02 Dose: 100 mls/hr Indomethacin (Indocin Suppository -) 50 mg NM ONCE ONE Stop: 12/23/18 07:01 Morphine Sulfate (Morphine Sulfate) 2 mg IVPUSH Q4H PRN PRN Reason: PAIN LEVEL 7 - 10 Last Admin: 12/22/18 14:45 Dose: 2 mg Oxycodone HCl (Roxicodone -) 5 mg PO Q6H PRN PRN Reason: PAIN LEVEL 6-10 Last Admin: 12/23/18 01:38 Dose: 5 mg - Objective Vital Signs: Vital Signs Temperature 98.8 F 12/23/18 02:00 Pulse Rate 61 12/23/18 02:00 Respiratory Rate 19 12/23/18 02:00 Blood Pressure 108/63 12/23/18 02:00 O2 Sat by Pulse Oximetry (%) 95 12/22/18 21:00 Constitutional: Yes: Well Nourished, No Distress, Calm Eyes: Yes: Conjunctiva Clear, EOM Intact HENT: Yes: Atraumatic, Normocephalic Neck: Yes: Supple, Trachea Midline Cardiovascular: Yes: Regular Rate and Rhythm, S1, S2 Respiratory: Yes: Regular, CTA Bilaterally Gastrointestinal: Yes: Normal Bowel Sounds, Soft, Tenderness (incisonal) ...Rectal Exam: Yes: Deferred Genitourinary: No: CVA Tenderness - Left, CVA Tenderness - Right Breast(s): No: Mass, Skin Changes Musculoskeletal: No: Muscle Pain, Muscle Weakness Extremities: No: Cool, Cyanosis Edema: No Peripheral Pulses WNL: Yes Peripheral Pulses: Left Radial: 2+, Right Radial: 2+, Left Doralis Pedis: 2+, Right Dorsalis Pedis: 2+, Left Femoral: 2+, Right Femoral: 2+ Integumentary: Yes: Incision Wound/Incision: Yes: Clean/Dry, Well Approximated, Open to air Neurological: Yes: Alert, Oriented Psychiatric: Yes: Alert, Oriented Labs: CBC, BMP 12/22/18 08:05 12/22/18 08:05 INR, PTT INR 1.13 (0.83-1.09) H 12/18/18 07:35 Problem List - Problems (1) Biliary acute pancreatitis Assessment/Plan: 38 yo female with abdominal pain, no obstruction on MRCP, transaminitis resolving s/p Lap Cholecystetcomy Diet as tolerated IVF hydration IV antibiotics per ID trend labs defer to GI for ERCP discharge is at the discretion of primary team Code(s): K85.10 - BILIARY ACUTE PANCREATITIS WITHOUT NECROSIS OR INFECTION (2) Anemia Code(s): D64.9 - ANEMIA, UNSPECIFIED Qualifiers: Anemia type: iron deficiency Iron deficiency anemia type: other iron deficiency Qualified Code(s): D50.8 - Other iron deficiency anemias (3) Choledocholithiasis Code(s): K80.50 - CALCULUS OF BILE DUCT W/O CHOLANGITIS OR CHOLECYST W/O OBST (4) Ovarian cyst Code(s): N83.20 - UNSPECIFIED OVARIAN CYSTS * DO NOT USE * Qualifiers: Laterality: left Qualified Code(s): N83.202 - Unspecified ovarian cyst, left side
[2018-12-23] MEDS ORDERED: INDOMETHACIN 50 MG RECTAL SUPPOSITORY PR ONE (07:00)
[2018-12-23 09:01] LABS: INR 1.14 (0.83-1.09); PROTHROMBIN TIME (PATIENT) 13.5 SEC (9.7-13.0)
[2018-12-23 09:18] LABS: BILIRUBIN,DIRECT 2.5 mg/dL (0.0-0.2)
--- NOTE | 2018-12-23 09:22 | PN ---
Progress Note, Physician - Current Medication List Current Medications: Active Medications Docusate Sodium (Colace -) 100 mg PO Q12H PRN PRN Reason: CONSTIPATION Ferrous Sulfate (Feosol -) 325 mg PO BID BRUCE Last Admin: 12/22/18 21:21 Dose: 325 mg Piperacillin Sod/Tazobactam (Sod 3.375 gm/ Dextrose) 50 mls @ 100 mls/hr IVPB Q8H-IV BRUCE; Protocol Lactated Ringer's (Lactated Ringers Solution) 1,000 ml in 1,000 mls @ 150 mls/ hr IV ASDIR BRUCE Last Admin: 12/22/18 19:07 Dose: 150 mls/hr Piperacillin Sod/Tazobactam (Sod 3.375 gm/ Dextrose) 50 mls @ 100 mls/hr IVPB Q8H-IV BRUCE; Protocol Stop: 12/23/18 10:29 Last Admin: 12/23/18 01:02 Dose: 100 mls/hr Morphine Sulfate (Morphine Sulfate) 2 mg IVPUSH Q4H PRN PRN Reason: PAIN LEVEL 7 - 10 Last Admin: 12/22/18 14:45 Dose: 2 mg Oxycodone HCl (Roxicodone -) 5 mg PO Q6H PRN PRN Reason: PAIN LEVEL 6-10 Last Admin: 12/23/18 01:38 Dose: 5 mg - Objective Vital Signs: Vital Signs Temperature 98 F 12/23/18 06:00 Pulse Rate 56 L 12/23/18 06:00 Respiratory Rate 20 12/23/18 06:00 Blood Pressure 115/68 12/23/18 06:00 O2 Sat by Pulse Oximetry (%) 95 12/22/18 21:00 Labs: INR, PTT INR 1.14 (0.83-1.09) H 12/23/18 07:47
[2018-12-23 09:23] LABS: ALBUMIN 3.1 g/dl (3.4-5.0); CALCIUM 8.4 mg/dL (8.5-10.1); CREATININE 0.5 mg/dL (0.55-1.3); POTASSIUM 3.6 mmol/L (3.5-5.1); TOT PROT 6.3 g/dl (6.4-8.2)
[2018-12-23 09:31] LABS: BLOOD UREA NITROGEN 2.6 mg/dL (7-18)
[2018-12-23 09:32] LABS: BASO % 0.2 % (0-2.0); EOS % 0.2 % (0-4.5); HEMATOCRIT 33.3 % (32.4-45.2); LYMPH % 18.1 % (8-40); MCHC 32.9 g/dl (32.0-36.0); MEAN PLT VOLUME 9.9 fl (7.5-11.1); MONO % 6.1 % (3.8-10.2); NEUT % 75.4 % (42.8-82.8); PLATELET COUNT 153 K/MM3 (134-434); RBC 4.56 M/mm3 (3.60-5.2); RDW 17.2 % (11.6-15.6); WHITE BLOOD COUNT 5.4 K/mm3 (4.0-10.0)
[2018-12-23] MEDS: FERROUS SO4 325 MG TABLET (FP) PO SCH ×2 (09:57→21:14)
--- NOTE | 2018-12-23 10:50 | PN ---
Physical Exam: SUBJECTIVE: Patient seen and examined. Pt states she has a hard time sleeping bc she is in a lot of pain. she complains of epigastric pain and pain in her thoracic spine. Pt states shes also been having headaches. Pt has been nauseas and vomit x1 this am. OBJECTIVE: Vital Signs Period Temp Pulse Resp BP Sys/Hu Pulse Ox Last 24 Hr 98 F-99.3 F 56-61 16-58 108-120/63-74 95 GENERAL: The patient is awake, alert, and fully oriented, in no acute distress. pt is jaundice HEAD: Normal with no signs of trauma. LUNGS: Breath sounds equal, clear to auscultation bilaterally, no wheezes, no crackles, no accessory muscle use. HEART: Regular rate and rhythm, S1, S2 without murmur, rub or gallop. ABDOMEN: Soft, tender to palpation on epigastric region. nondistended, normoactive bowel sounds EXTREMITIES: 2+ pulses, warm, well-perfused, no edema. SKIN: Warm, dry, normal turgor, no rashes or lesions noted Laboratory Results - last 24 hr 12/23/18 12/23/18 12/23/18 07:47 07:47 07:47 WBC 5.4 RBC 4.56 Hgb 11.0 Hct 33.3 MCV 73.0 L MCH 24.0 L MCHC 32.9 RDW 17.2 H Plt Count 153 MPV 9.9 Absolute Neuts (auto) 4.1 Neutrophils % 75.4 Lymphocytes % 18.1 Monocytes % 6.1 Eosinophils % 0.2 Basophils % 0.2 Nucleated RBC % 0 PT with INR INR Sodium 141 Potassium 3.6 Chloride 110 H Carbon Dioxide 24 Anion Gap 7 L BUN 2.6 L* Creatinine 0.5 L Est GFR (CKD-EPI)AfAm 142.30 Est GFR (CKD-EPI)NonAf 122.78 Random Glucose 103 Calcium 8.4 L Total Bilirubin 3.0 H Direct Bilirubin 2.5 H AST 301 H ALT 546 H Alkaline Phosphatase 219 H C-Reactive Protein 0.4 H Total Protein 6.3 L Albumin 3.1 L Total Amylase 46 Lipase 626 H Current Medications Docusate Sodium (Colace -) 100 mg PO Q12H PRN PRN Reason: CONSTIPATION Ferrous Sulfate (Feosol -) 325 mg PO BID BRUCE Last Admin: 12/23/18 09:57 Dose: Not Given Piperacillin Sod/Tazobactam (Sod 3.375 gm/ Dextrose) 50 mls @ 100 mls/hr IVPB Q8H-IV BRUCE; Protocol Lactated Ringer's (Lactated Ringers Solution) 1,000 ml in 1,000 mls @ 150 mls/ hr IV ASDIR BRUCE Last Admin: 12/22/18 19:07 Dose: 150 mls/hr Morphine Sulfate (Morphine Sulfate) 2 mg IVPUSH Q4H PRN PRN Reason: PAIN LEVEL 7 - 10 Last Admin: 12/22/18 14:45 Dose: 2 mg Oxycodone HCl (Roxicodone -) 5 mg PO Q6H PRN PRN Reason: PAIN LEVEL 6-10 Last Admin: 12/23/18 01:38 Dose: 5 mg MRCP: IMPRESSION: Distended gallbladder containing a gallstone in the neck/proximal cystic duct with trace pericholecystic fluid suspicious for mild/early cholecystitis. No choledocholithiasis or pancreaticobiliary ductal dilatation. Focal arterial hyperenhancement of the pancreatic head as compared to the remainder of the pancreas with no corresponding T2 signal abnormality or restricted diffusion. This could be a benign perfusion variant appearance or could be secondary to hyperemia from focal pancreatitis however other subtle underlying etiologies cannot be completely excluded. Correlate with patient's clinical history, symptoms, LFTs and amylase lipase. Follow-up MRI of the pancreas with contrast is suggested in [address] abdomen:Impression: No CT evidence of an acute process is seen within the abdomen and pelvis. Adequately distended gallbladder with a phrygian cap and without gross evidence of wall thickening or intraluminal stones. Tiny fat- containing umbilical hernia. Normal-appearing appendix. Intrauterine device in satisfactory position. HIDA: IMPRESSION: Scintigraphic findings suggestive of high-grade biliary stenosis. Alternatively findings could be seen with severe acute liver failure. No definite bile leak seen however given the significant delayed biliary excretion and biliary enteric transit of tracer, underlying leak cannot be completely excluded. Correlate with patient's clinical history and symptoms as well as LFTs and bilirubin level. If indicated cross-sectional imaging may be obtained for further evaluation. ASSESSMENT/PLAN: 38 yo F PMH of anemia and cholelithiasis presents to ED with epigastric, RUQ pain x2 days with associated n/v/d. Pt is admitted for workup of acute cholecystitis Acute Cholecytitis -pt s/p lap cholecystectomy and umbilical hernia repair (12/21) -pt s/p ERCP(12/23) pt had 1 CBD stone removed, pt had stent placement -lipase increased after lap rudy -transaminitis was downtrending prior to surgery(12/21/18) .12/22 labs show increasing transaminitis. -Tbili increasing throughout hospital course -CT abdomen:see above -MRCP performed prior to lap cholecystectomy ,reviewed results, see above - HIDA results reviewed, see above -GI recs appreciated -pt should follow up with GI, pt will need rpt ERCP in 3 months. -c/w ursodiol -Surgery recommendations appreciated -s/p merrem in ED -c/w Zosyn (day 5) as per ID recs -IVF, pain control w/ IV morphine -UCx negative -Hep panel negative Biliary pancreatitis -lipase increasing after lap rudy -s/p ERCP -pt on clear liquid LE pain -non edematous, non erythematous -recently -venous Duplex negative Iron deficiency anemia -no signs of acute bleed, no need for transfusion. Continue to monitor -possibly dilutional -Fe supplementation when off Antibiotics -breast pump for pt -antibiotics and medications administered evaluated and should be safe for use while F/E/N -clear liquid diet -D5 NS Dispo: monitor on med surg until pt is medically optimized. Visit type - Emergency Visit Emergency Visit: No - New Patient This patient is new to me today: No - Critical Care Critical Care patient: No - Discharge Referral Referred to [facility] Med [facility] No ATTENDING PHYSICIAN STATEMENT I saw and evaluated the patient. I reviewed the resident's note and discussed the case with the resident. I agree with the resident's findings and plan as documented. SUBJECTIVE: OBJECTIVE: ASSESSMENT AND PLAN:
[2018-12-23 12:46] VITALS: BMI 24.3
--- NOTE | 2018-12-23 13:01 | PN ---
Progress Note (short form) - Note Progress Note: GI Procedure NOte: Please see ERCP report. Removed the smaller of two CBD stones. Unable to remove the larger stones so a 7Fr x 4cm stent was inserted. Continue antibiotics and watch for pancreatitis. Will start Ursodiol which she should continue until repeat ERCP in 3 months. Please refer her to our office to arrange this after discharge to arrange this ERCP. Communicated with Dr Cruz Problem List - Problems (1) Jaundice Code(s): R17 - UNSPECIFIED JAUNDICE (2) Choledocholithiasis Code(s): K80.50 - CALCULUS OF BILE DUCT W/O CHOLANGITIS OR CHOLECYST W/O OBST (3) Abdominal pain Code(s): R10.9 - UNSPECIFIED ABDOMINAL PAIN Qualifiers: Abdominal location: right upper quadrant Qualified Code(s): R10.11 - Right upper quadrant pain
--- NOTE | 2018-12-23 13:04 | OP ---
DATE OF OPERATION: 12/21/2018 PREOPERATIVE DIAGNOSES: Umbilical hernia, transaminitis, and acute cholecystitis. POSTOPERATIVE DIAGNOSES: Umbilical hernia, transaminitis, and acute cholecystitis. PROCEDURE: Laparoscopic cholecystectomy and umbilical hernia repair. ATTENDING PHYSICIAN: James Cruz MD LINING PRESSER: Javier Cheema MD ANESTHESIA: Bryan Dias MD ANESTHESIA TYPE: General with local. Local consisted of 0.5% Marcaine, a total of 20 mL in area block fashion at the port sites. ESTIMATED BLOOD LOSS: 20 mL. IV FLUID ADMINISTERED: 400 mL of crystalloid. SPECIMEN: Hernia sac and gallbladder. BRIEF FINDINGS: The patient had a tortuous and distended gallbladder. Critical view was identified. INDICATION: The patient is a 38-year-old female presenting with a history of acute on chronic cholecystitis. She was counseled regarding risks, benefits, and alternatives regarding surgical cholecystectomy, signed informed consent and was taken for the procedure. PROCEDURE: The patient was brought to the operating room. She was placed in supine position on the operating table. Patient had lower extremities placed into SCDs. She was induced with general anesthesia, endotracheally intubated without incident by Anesthesia. She then had intravenous antibiotic, 2 g of Mefoxin, preoperatively. When the patient was stable and on anesthesia, standard sterile prep and drape of the anterior abdominal wall, we began with a formal timeout, identifying the operative procedure and the date, with all parties in agreement. We began first with a supraumbilical approach. It was a Bishop entry into the abdomen, scribed to the skin and incised with a 15 blade scalpel. It was carried down through and through the subcutaneous tissue with Bovie cautery to the abdominal fascia. At the fascia of the rectus, it was elevated into the wound and then a blunt entry was made into the umbilicus. After placing a 12-mm Bishop port, pneumoperitoneum was established to 15 mmHg, at which point we began first with inspection of the gallbladder and site. There appeared to be some omental adhesion to the gallbladder, which was taken down after installing a subxiphoid trocar and sweeping the connective tissue down. Additional port sites were placed in the right abdomen too for retraction of the gallbladder. The gallbladder was then retracted cranially. It appeared to be somewhat tortuous. We took time to take down the structures around the cystic duct. The cystic artery appeared anterior and was coursing into the gallbladder wall. It was isolated following the cystic duct in a similar fashion. The right hepatic was clearly just anterior to the dissection plane. It was protected out of the surgical field and a critical view was established, at which point the cystic structures were clipped with 5-mm clips and then transected. The gallbladder was then taken from its bed on the liver with Bovie cautery. When free from the liver bed and hemostasis obtained throughout the dissection, the gallbladder was retrieved from the umbilical port after re-siting the camera to the subxiphoid position. Care was taken to then obtain additional hemostasis and suction any bile from the abdomen with a minimal amount of spillage from the gallbladder itself. There appeared to be no additional pathology, and the trocars were removed under direct visualization and pneumoperitoneum was relieved. After completing this, the patient was returned to a level position. The umbilical port was then closed with 0 Vicryl in a [id number] fashion, ablating the space. The hernia sac was truncated and sent for pathologic diagnosis additionally. The patient was awoken from general anesthesia, having tolerated the procedure well, after the fascia was closed and subcuticular closure of the skin was made and the wounds were sterilely dressed. The patient was awoken from general anesthesia, having tolerated procedure well, stable throughout the procedure. Instrument counts were correct prior to the close of the surgery. MD MINDI Devries/[id number]
[2018-12-23] MEDS: LACTATED RINGERS SOLUTION 1,000 ML/1,000 ML INFUS.BAG IV SCH ×2 (14:27→17:32)
[2018-12-23] MEDS: MORPHINE SULFATE 2 MG/ML VIAL IVPUSH PRN ×2 (14:43→21:18)
--- NOTE | 2018-12-23 15:34 | PN ---
Teaching Attending Note Name of Resident: Jayne Levi ATTENDING PHYSICIAN STATEMENT I saw and evaluated the patient. I reviewed the resident's note and discussed the case with the resident. I agree with the resident's findings and plan as documented. SUBJECTIVE: Ongoing RUQ pain/tenderness/nausea. No vomiting/fever/chills. OBJECTIVE: Afebrile, Hemodynamically Stable. Last Vital Signs Temp Pulse Resp BP Pulse Ox 97.9 F 46 L 20 127/71 99 12/23/18 14:36 12/23/18 14:36 12/23/18 14:36 12/23/18 14:36 12/23/18 13:55 Heart - S1, S2, RRR Lungs - clear to auscultation Abdomen - soft, tender RUQ/epigastrum. Trochar sites dressed - dressings C/D/I Extremities - no edema, no calf tenderness. Current Medications Generic Name Dose Route Start Last Admin Trade Name Freq PRN Reason Stop Dose Admin Docusate Sodium 100 mg 12/22/18 14:13 Colace - PO Q12H PRN CONSTIPATION Ferrous Sulfate 325 mg 12/22/18 22:00 12/23/18 09:57 Feosol - PO Not Given BID BRUCE Piperacillin Sod/Tazobactam 50 mls @ 100 mls/hr 12/22/18 18:00 Sod 3.375 gm/ Dextrose IVPB Q8H-IV BRUCE Protocol Lactated Ringer's 1,000 ml in 1,000 mls @ 250 mls/hr 12/23/18 13:15 12/23/18 14:27 Lactated Ringers Solution IV 12/23/18 19:15 250 mls/hr ASDIR BRUCE Administration Lactated Ringer's 1,000 ml in 1,000 mls @ 200 mls/hr 12/23/18 19:15 Lactated Ringers Solution IV 12/24/18 02:15 ASDIR BRUCE Lactated Ringer's 1,000 ml in 1,000 mls @ 175 mls/hr 12/24/18 02:15 Lactated Ringers Solution IV 12/24/18 08:15 ASDIR BRUCE Lactated Ringer's 1,000 ml in 1,000 mls @ 150 mls/hr 12/24/18 08:15 Lactated Ringers Solution IV ASDIR BRUCE Morphine Sulfate 2 mg 12/22/18 11:47 12/23/18 14:43 Morphine Sulfate IVPUSH 2 mg Q4H PRN Administration PAIN LEVEL 7 - 10 Oxycodone HCl 5 mg 12/22/18 10:55 12/23/18 01:38 Roxicodone - PO 5 mg Q6H PRN Administration PAIN LEVEL 6-10 Ursodiol 300 mg 12/23/18 22:00 Actigal - PO BID BRUCE Home Medications Medication Instructions Recorded NK [No Known Home Medication] 12/16/18 ASSESSMENT AND PLAN 38 year old female with no significant PMH, presented with abdominal pain, nausea, vomiting, found to have acute cholecystitis. 1. Acute Cholecystitis - POD 2 s/p Laparocopic Cholecystectomy MRCP prior to surgery showed acute cholecystitis but no choledocholithasis Nauseous, not yet tolerating oral intake. LFTs rising including Bilirubin and Transaminases. s/p ERCP 12/23 - smaller CBD stone removed, unable to remove larger stone. Stent placed. Started on Ursodiol. Recommend repeat ERCP in 3 months. Resumed on Zosyn. Oxycodone PRN. 2. Iron deficiency Anemia - Iron Sat 7 - for out-patient work-up. Started on FeSO4 supplementation. DVT Px - Lovenox SQ
[2018-12-23] MEDS ORDERED: LACTATED RINGERS SOLUTION 1,000 ML/1,000 ML INFUS.BAG IV SCH (19:15)
[2018-12-23] MEDS ORDERED: PT OWN MED DRAWER 7, Y5N ONE (21:06)
[2018-12-23] MEDS: URSODIOL 300 MG CAPSULE PO SCH (21:13)
[2018-12-24] MEDS ORDERED: PIPERACILLIN/TAZOBACTAM 3.375 GM VIAL IVPB ONE ×2 (01:26→09:11)
[2018-12-24] MEDS ORDERED: DEXTROSE 5%-WATER - 50 ML IVPB ONE ×2 (01:26→09:11)
[2018-12-24] MEDS: PIPERACILLIN/TAZOB 3.375 GM 3.375 GM in DEXTROSE 5%-WATER - 50 ML IVPB SCH ×2 (01:48→09:18)
[2018-12-24] MEDS ORDERED: LACTATED RINGERS SOLUTION 1,000 ML/1,000 ML INFUS.BAG IV SCH ×2 (02:15→08:15)
[2018-12-24] MEDS: oxyCODONE HCL 5 MG TABLET PO PRN (02:53)
[2018-12-24 08:52] LABS: BASO % 0.5 % (0-2.0); EOS % 0.6 % (0-4.5); HEMATOCRIT 31.5 % (32.4-45.2); HEMOGLOBIN 10.3 GM/dL (10.7-15.3); LYMPH % 23.1 % (8-40); MCH 23.7 pg (25.7-33.7); MCHC 32.6 g/dl (32.0-36.0); MEAN CELL VOLUME 72.6 fl (80-96); MEAN PLT VOLUME 10.5 fl (7.5-11.1); MONO % 5.8 % (3.8-10.2); PLATELET COUNT 163 K/MM3 (134-434); RBC 4.34 M/mm3 (3.60-5.2); RDW 17.4 % (11.6-15.6); WHITE BLOOD COUNT 6.7 K/mm3 (4.0-10.0)
[2018-12-24] MEDS: FERROUS SO4 325 MG TABLET (FP) PO SCH (09:18)
[2018-12-24] MEDS: URSODIOL 300 MG CAPSULE PO SCH (09:18)
[2018-12-24 09:20] LABS: BILIRUBIN,DIRECT 0.7 mg/dL (0.0-0.2); BILIRUBIN,TOTAL 1.2 mg/dL (0.2-1); CALCIUM 8.5 mg/dL (8.5-10.1); CREATININE 0.5 mg/dL (0.55-1.3); POTASSIUM 3.7 mmol/L (3.5-5.1); TOT PROT 6.1 g/dl (6.4-8.2)
--- NOTE | 2018-12-24 14:09 | PN ---
Teaching Attending Note Name of Resident: Jayne Levi ATTENDING PHYSICIAN STATEMENT I saw and evaluated the patient. I reviewed the resident's note and discussed the case with the resident. I agree with the resident's findings and plan as documented. SUBJECTIVE: Ongoing RUQ pain/tenderness/nausea. No vomiting/fever/chills. OBJECTIVE: Afebrile, Hemodynamically Stable. Last Vital Signs Temp Pulse Resp BP Pulse Ox 98.7 F 54 L 18 101/61 95 12/24/18 10:00 12/24/18 10:00 12/24/18 10:00 12/24/18 10:00 12/24/18 10:00 Heart - S1, S2, SM Lungs - clear to auscultation Abdomen - soft, RUQ/epigastrum less tender. Trochar sites dressed - dressings C/ D/I Extremities - no edema, no calf tenderness. Laboratory Results - last 24 hr 12/24/18 12/24/18 07:26 07:26 WBC 6.7 RBC 4.34 Hgb 10.3 L Hct 31.5 L MCV 72.6 L MCH 23.7 L MCHC 32.6 RDW 17.4 H Plt Count 163 MPV 10.5 Absolute Neuts (auto) 4.7 Neutrophils % 70.0 Lymphocytes % 23.1 D Monocytes % 5.8 Eosinophils % 0.6 D Basophils % 0.5 Nucleated RBC % 0 Sodium 142 Potassium 3.7 Chloride 109 H Carbon Dioxide 24 Anion Gap 9 BUN 6.0 L Creatinine 0.5 L Est GFR (CKD-EPI)AfAm 142.30 Est GFR (CKD-EPI)NonAf 122.78 Random Glucose 79 Calcium 8.5 Total Bilirubin 1.2 H Direct Bilirubin 0.7 H AST 204 H ALT 482 H Alkaline Phosphatase 200 H C-Reactive Protein 0.4 H Total Protein 6.1 L Albumin 3.0 L Total Amylase 29 Lipase 238 Current Medications Generic Name Dose Route Start Last Admin Trade Name Freq PRN Reason Stop Dose Admin Docusate Sodium 100 mg 12/22/18 14:13 Colace - PO Q12H PRN CONSTIPATION Ferrous Sulfate 325 mg 12/22/18 22:00 12/24/18 09:18 Feosol - PO 325 mg BID BRUCE Administration Lactated Ringer's 1,000 ml in 1,000 mls @ 150 mls/hr 12/24/18 08:15 12/24/18 09:19 Lactated Ringers Solution IV 150 mls/hr ASDIR BRUCE Administration Piperacillin Sod/Tazobactam 50 mls @ 100 mls/hr 12/23/18 18:00 12/24/18 09:18 Sod 3.375 gm/ Dextrose IVPB 100 mls/hr Q8H-IV BRUCE Administration Protocol Morphine Sulfate 2 mg 12/22/18 11:47 12/23/18 21:18 Morphine Sulfate IVPUSH 2 mg Q4H PRN Administration PAIN LEVEL 7 - 10 Oxycodone HCl 5 mg 12/22/18 10:55 12/24/18 02:53 Roxicodone - PO 5 mg Q6H PRN Administration PAIN LEVEL 6-10 Ursodiol 300 mg 12/23/18 22:00 12/24/18 09:18 Actigal - PO 300 mg BID BRUCE Administration Home Medications Medication Instructions Recorded NK [No Known Home Medication] 12/16/18 ASSESSMENT AND PLAN 38 year old female with no significant PMH, presented with abdominal pain, nausea, vomiting, found to have acute cholecystitis. 1. Acute Cholecystitis - POD 3 s/p Laparocopic Cholecystectomy MRCP prior to surgery showed acute cholecystitis but no choledocholithasis s/p ERCP 12/23 - smaller CBD stone removed, unable to remove larger stone. Stent placed. Started on Ursodiol. Recommend repeat ERCP in 3 months. Resumed on Zosyn. Will advance diet and monitor response. LFTs improving. For out-patient LFT monitoring, GI follow up. 2. Iron deficiency Anemia - Iron Sat 7 - for out-patient work-up. Started on FeSO4 supplementation. DVT Px - Lovenox SQ
--- NOTE | 2018-12-24 14:45 | PN ---
Progress Note, Physician History of Present Illness: patient stable no new issues - Current Medication List Current Medications: Active Medications Docusate Sodium (Colace -) 100 mg PO Q12H PRN PRN Reason: CONSTIPATION Ferrous Sulfate (Feosol -) 325 mg PO BID [facility] Last Admin: 12/24/18 09:18 Dose: 325 mg Lactated Ringer's (Lactated Ringers Solution) 1,000 ml in 1,000 mls @ 150 mls/ hr IV ASDIR BRUCE Last Admin: 12/24/18 09:19 Dose: 150 mls/hr Piperacillin Sod/Tazobactam (Sod 3.375 gm/ Dextrose) 50 mls @ 100 mls/hr IVPB Q8H-IV BRUCE; Protocol Last Admin: 12/24/18 09:18 Dose: 100 mls/hr Oxycodone HCl (Roxicodone -) 5 mg PO Q6H PRN PRN Reason: PAIN LEVEL 6-10 Last Admin: 12/24/18 02:53 Dose: 5 mg Ursodiol (Actigal -) 300 mg PO BID [facility] Last Admin: 12/24/18 09:18 Dose: 300 mg - Objective Vital Signs: Vital Signs Temperature 98.7 F 12/24/18 10:00 Pulse Rate 54 L 12/24/18 10:00 Respiratory Rate 18 12/24/18 10:00 Blood Pressure 101/61 12/24/18 10:00 O2 Sat by Pulse Oximetry (%) 95 12/24/18 10:00 Constitutional: Yes: No Distress, Calm Respiratory: Yes: Regular, CTA Bilaterally Gastrointestinal: Yes: Normal Bowel Sounds, Soft Extremities: Yes: WNL Neurological: Yes: Alert, Oriented Psychiatric: Yes: Alert, Oriented Labs: CBC, BMP 12/24/18 07:26 12/24/18 07:26 INR, PTT INR 1.14 (0.83-1.09) H 12/23/18 07:47 Assessment/Plan Problem List - Problems (1) Biliary acute pancreatitis Code(s): K85.10 - BILIARY ACUTE PANCREATITIS WITHOUT NECROSIS OR INFECTION (2) Anemia Code(s): D64.9 - ANEMIA, UNSPECIFIED (3) Choledocholithiasis Code(s): K80.50 - CALCULUS OF BILE DUCT W/O CHOLANGITIS OR CHOLECYST W/O OBST (4) Ovarian cyst Code(s): N83.20 - UNSPECIFIED OVARIAN CYSTS * DO NOT USE * Qualifiers: Laterality: left Qualified Code(s): N83.202 - Unspecified ovarian cyst, left side plan continue current mgmt close watch monitor enzymes rest as per the team
[2018-12-24 15:03] VITALS: BP 120/73; PULSE 55; TEMP 98.4
--- NOTE | 2018-12-24 16:29 | DS ---
Physical Exam: SUBJECTIVE: Patient seen and examined at bedside. Pt states she is ready to go home. Pts pain is improving and she is tolerating diet. OBJECTIVE: Vital Signs Period Temp Pulse Resp BP Sys/Hu Pulse Ox Last 24 Hr 97.5 F-98.7 F 54-75 18-20 101-136/55-80 95-99 PHYSICAL EXAM GENERAL: The patient is awake, alert, and fully oriented, in no acute distress. LUNGS: Breath sounds equal, clear to auscultation bilaterally, no wheezes, no crackles, no accessory muscle use. HEART: Regular rate and rhythm, S1, S2 without murmur, rub or gallop. ABDOMEN: Soft, slight tenderness to palpation, nondistended, normoactive bowel sounds EXTREMITIES: 2+ pulses, warm, well-perfused, no edema. SKIN: Warm, dry, normal turgor, no rashes or lesions noted. LABS Laboratory Results - last 24 hr 12/24/18 12/24/18 07:26 07:26 WBC 6.7 RBC 4.34 Hgb 10.3 L Hct 31.5 L MCV 72.6 L MCH 23.7 L MCHC 32.6 RDW 17.4 H Plt Count 163 MPV 10.5 Absolute Neuts (auto) 4.7 Neutrophils % 70.0 Lymphocytes % 23.1 D Monocytes % 5.8 Eosinophils % 0.6 D Basophils % 0.5 Nucleated RBC % 0 Sodium 142 Potassium 3.7 Chloride 109 H Carbon Dioxide 24 Anion Gap 9 BUN 6.0 L Creatinine 0.5 L Est GFR (CKD-EPI)AfAm 142.30 Est GFR (CKD-EPI)NonAf 122.78 Random Glucose 79 Calcium 8.5 Total Bilirubin 1.2 H Direct Bilirubin 0.7 H AST 204 H ALT 482 H Alkaline Phosphatase 200 H C-Reactive Protein 0.4 H Total Protein 6.1 L Albumin 3.0 L Total Amylase 29 Lipase 238 MRCP: IMPRESSION: Distended gallbladder containing a gallstone in the neck/proximal cystic duct with trace pericholecystic fluid suspicious for mild/early cholecystitis. No choledocholithiasis or pancreaticobiliary ductal dilatation. Focal arterial hyperenhancement of the pancreatic head as compared to the remainder of the pancreas with no corresponding T2 signal abnormality or restricted diffusion. This could be a benign perfusion variant appearance or could be secondary to hyperemia from focal pancreatitis however other subtle underlying etiologies cannot be completely excluded. Correlate with patient's clinical history, symptoms, LFTs and amylase lipase. Follow-up MRI of the pancreas with contrast is suggested in [address] abdomen:Impression: No CT evidence of an acute process is seen within the abdomen and pelvis. Adequately distended gallbladder with a phrygian cap and without gross evidence of wall thickening or intraluminal stones. Tiny fat- containing umbilical hernia. Normal-appearing appendix. Intrauterine device in satisfactory position. HIDA: IMPRESSION: Scintigraphic findings suggestive of high-grade biliary stenosis. Alternatively findings could be seen with severe acute liver failure. No definite bile leak seen however given the significant delayed biliary excretion and biliary enteric transit of tracer, underlying leak cannot be completely excluded. Correlate with patient's clinical history and symptoms as well as LFTs and bilirubin level. If indicated cross-sectional imaging may be obtained for further evaluation. HOSPITAL COURSE: Date of Admission:12/16/18 38 yo F PMH of anemia and cholelithiasis presents to ED with epigastric, RUQ pain x2 days with associated n/v/d. Pt is admitted for workup of acute cholecystitis. Pt has MRCP, CT abdomen on admission, the results are stated above. Pt was followed by GI and Surgery. Pt was kept NPO until her lap cholecystectomy, umbilical hernia repair on 12/21. Pts labs and LFTs were continuously monitored. Following the lap cholecystecomy, pts LFTs increased and pt was endorsing significant epigastric and thoracic back pain. Pt was seen by GI and taken for ERCP. One CBD stone was removed and there was a stent placed. Pt should continue to take Ursodiol. Pt needs to f/u with GI and surgery outpt. Pt should have a repeat ERCP in 3 months. During hospital course , pt was treated with 6 days of Zosyn. If pt develops any fever she should return to the ED. On admission, pt complained of LE pain. Since pt had risk factors, venous duplex was done and negative. Pt was advised that it was ok to continue but pt did not wish to continue. Date of Discharge: 12/24/18 Minutes to complete discharge: 36 Discharge Summary Reason For Visit: RIGHT ABDOMINAL PAIN Current Active Problems Abdominal pain (Acute) Anemia (Acute) Biliary acute pancreatitis (Acute) Choledocholithiasis (Acute) Jaundice (Acute) Condition: Stable - Instructions Diet, Activity, Other Instructions: Your visit You were admitted to the hospital because you had belly pain. Several imaging were done which showed that you have stones on the gallbladder and in the duct, which carries bile from the gallbladder to your bowels. You underwent surgery to take out your gallbladder, and you underwent a procedure to remove the smaller stones that were stuck in the duct. A stent was placed to allow the larger stones to pass. You would need to follow up closely with the senior network architect (Dr. Burnette). You would need to have the procedure ( Endoscopic Retrograde Cholangiopancreatography) repeated in 3 months to check if the stones have passed. You need to continue to take antibiotics for 7 more days as prescribed. If you develop fevers, please go to the emergency department. You were also noted to be anemic. This is likely because of iron deficiency. You were started on iron pills. Please take Feosol 325mg twice a day. You need to follow up with your primary care doctor to have a repeat blood work in 1 week to monitor your anemia and liver function. You would need a repeat CBC and CMP. Medications Please take the following medications as prescribed: 1. Augmentin 875mg 1 tab twice a day for 7 days. 2. Ursodiol 300mg twice a day for 3 months. 3. Ferrous sulfate 325gm twice a day. Follow up 1. Please follow up with your primary care doctor within 1 week. You may call the resident medical clinic at [facility] at [phone] to schedule an appointment with Dr. Levi. 2. Please follow up with the senior network architect (Dr. Burnette) in 2 weeks. 3. Please follow up with surgery (Dr. Cruz) as instructed below. Dr. Cruz' Postoperative instructions: You had a laparoscopic cholecystectomy on 12/21/[address] James Cruz of [facility]. Activity: Resume your usual activities gradually, but no heavy exertion or lifting more than 10-15 pounds for 1 month. Remove dressings 48 hours after surgery; sticky tapes underneath will fall off by themselves. You may shower daily starting then, just pat the incision areas dry. No bath or swimming until skin incisions have healed. Eat lightly at first, but advance to your usual diet as tolerated. Pain: For pain, you may use and alternate Tylenol (acetaminophen) 1-2 pills and/ or ibuprofen 200 mg (1-3 pills) every 6 hours each as needed; this means that you can take one OR the other at 3-hour intervals. If you are prescribed a Tylenol/narcotic combination for severe pain, use it instead of plain Tylenol as needed and switch back when your pain starts decreasing. Do not take more than 4000mg of acetaminophen in a day. Take medications as prescribed or indicated on the labeling. Follow-up: Call Dr. Cruz' office at [phone] to make your postop appointment (Friday in approximately 2 weeks after surgery). Clinic is held in the Diagnostic [facility] on the first floor of [facility]. Call the office if you have: * increasing pain not responsive to pain medication * fever of 101F or higher * vomiting * unusual or increasing bleeding or drainage from wounds * increasing redness or swelling at wound sites * inability to urinate Additional info Please call 911 or go to the ED if with any worsening fever, chills, headache, dizziness, chest pain, shortness of breath, belly pain, diarrhea, urinary symptoms or any new concerns noted. Tu visita Fue ingresado en el hospital porque maira dolor de estmago. Se realizaron varias imgenes que mostraron que tiene clculos en la vescula biliar y en el conducto, que transporta la bilis desde la vescula hasta los intestinos. Se someti a ben ciruga para extraer la vescula biliar y se someti a un procedimiento para extraer los clculos ms pequeos que estaban atrapados en el conducto. Se coloc un stent para permitir el paso de las piedras ms grandes. Tendra que seguir de cerca con el gastroenterlogo (Dr. Burnette). Debera repetir el procedimiento (colangiopancreatografa retrgrada endoscpica ) en 3 meses para verificar si los clculos cheng pasado. Debe continuar tomando antibiticos jay jay 7 melendez ms segn lo recetado. Si desarrolla fiebre, vaya al departamento de emergencias. Tambin se not que maira anemia. [place] es probable debido a la deficiencia de cesar. Empezaste con pastillas de cesar. [place] Feosol 325 mg dos veces al da. Debe realizar un seguimiento con jones mdico de atencin primaria para repetir el anlisis de cara en 1 semana para controlar jones anemia y la funcin heptica. Necesitara repetir CBC y CMP. Medicamentos [place] los siguientes medicamentos segn lo recetado: 1. Augmentin 875mg 1 pestaa dos veces al da jay jay 7 melendez. 2. Ursodiol 300 mg dos veces al da jay jay 3 meses. 3. Sulfato ferroso 325 gm dos veces al da. Seguir 1. Anne un seguimiento con jones mdico de atencin primaria dentro de 1 semana. Puede llamar a la clnica mdica residente del [facility] al para programar ben bowen con la Dra. Levi. 2. Anne un seguimiento con el gastroenterlogo (Dr. Burnette) en 2 semanas. 3. Anne un seguimiento con ciruga (Dr. Cruz) megan se indica a continuacin. Instrucciones postoperatorias del Dr. Cruz: Usted tuvo ben colecistectoma laparoscpica el 12/21/[address] James Cruz del [facility]. Actividad: Reanude carolina actividades habituales gradualmente, kiara sin esfuerzo o levantando ms de 10-15 libras por 1 mes. Retire los apsitos 48 horas despus de la ciruga; las cintas adhesivas debajo se caern solas. Puede ducharse diariamente a partir de entonces, simplemente seque las reas de la incisin. No baarse ni nadar hasta que las incisiones en la piel hayan sanado. Coma ligeramente al principio, kiara avance a jones dieta habitual segn lo tolere. Dolor: Para el dolor, puede usar y alternar Tylenol (acetaminofeno) 1-2 pastillas y / o ibuprofeno 200 mg (1-3 pastillas) cada 6 horas cada ben, segn sea necesario; [place] significa que puede derek braden o el otro a intervalos de 3 horas. Si le recetan ben combinacin de Tylenol / narctico para el dolor intenso, bernardino en lugar de Tylenol simple segn sea necesario y cambie cuando jones dolor comience a disminuir. No tome ms de 4000 mg de acetaminofeno en un da. [place] los medicamentos recetados o indicados en el etiquetado. Seguimiento: Llame al consultorio del Dr. Cruz al [phone] para programar jones bowen postoperatoria (mircoles aproximadamente 2 semanas despus de la ciruga). La clnica se lleva a cabo en el [facility] en el primer piso del [facility]. Llame a la oficina si tiene: aumento del dolor que no responde a medicamentos para el dolor fiebre de 101F o ms vmitos sangrado o drenaje inusual o creciente de las heridas aumento del enrojecimiento o hinchazn en los sitios de la herida incapacidad para orinar informacin adicional [place] al 911 o vaya al servicio de urgencias si empeora la fiebre, escalofros, dolor de rajwinder, mareos, dolor en el pecho, falta de aliento, dolor abdominal, diarrea, sntomas urinarios o cualquier otra inquietud notada. Referrals: [facility] [place] [Provider Group] Trisha Burnette MD [Staff Physician] - James Cruz MD [Staff Physician] - Disposition: HOME - Home Medications Comprehensive Discharge Medication List: Ambulatory Orders Amox-Tr/K Cl [Augmentin - 875Mg Tablet] 1 tab PO BID #14 tablet 12/24/18 Docusate Sodium [Colace -] 100 mg PO Q12H PRN #30 capsule 12/24/18 Ferrous Sulfate [Feosol] 325 mg PO BID #60 ud 12/24/18 Ursodiol [Actigal -] 300 mg PO BID #60 capsule 12/24/18 This patient is new to me today: No Emergency Visit: No Critical Care patient: No - Discharge Referral Referred to [facility] No ATTENDING PHYSICIAN STATEMENT I saw and evaluated the patient. I reviewed the resident's note and discussed the case with the resident. I agree with the resident's findings and plan as documented. SUBJECTIVE: OBJECTIVE: ASSESSMENT AND PLAN:
== END 2018-12-24 16:59 | disposition home or self-care (01) | DRG 263 ==
LOC: JER 15:42 → JERBED 21:15 → J6S 12-17 18:21
PROVIDERS: ADMIT Internal Medicine
PROC: 0WQF4ZZ Repair Abdominal Wall, Percutaneous Endoscopic Approach (ICD-10-PCS; 2018-12-21)
PROC: 0FT44ZZ Resection of Gallbladder, Percutaneous Endoscopic Approach (ICD-10-PCS; principal; 2018-12-21 10:30)
PROC: 0F798DZ Dilation of Common Bile Duct with Intraluminal Device, Via Natural or Artificial Opening Endoscopic (ICD-10-PCS; 2018-12-23)
PROC: 0FC98ZZ Extirpation of Matter from Common Bile Duct, Via Natural or Artificial Opening Endoscopic (ICD-10-PCS; 2018-12-23)
DX: K80.66 Calculus of gallbladder and bile duct with acute and chronic cholecystitis without obstruction (principal); R00.1 Bradycardia, unspecified; D64.9 Anemia, unspecified; K85.10 Biliary acute pancreatitis without necrosis or infection; N83.202 Unspecified ovarian cyst, left side; K80.50 Calculus of bile duct without cholangitis or cholecystitis without obstruction; D50.9 Iron deficiency anemia, unspecified; M79.605 Pain in left leg; E16.2 Hypoglycemia, unspecified; E87.6 Hypokalemia; K42.9 Umbilical hernia without obstruction or gangrene; E87.2 Acidosis; R17 Unspecified jaundice; R10.11 Right upper quadrant pain
CPT/HCPCS: 36415; 74177-TC; 74182-TC; 76000-TC-FY; 76705-TC; 78226-TC; 80053; 80074; 80076; 81003; 82150; 82248; 82550; 82553; 83540; 83550; 83690; 83735; 84100; 84484; 84703; 85025; 85027; 85610; 85651; 86140; 86141; 86850; 86880; 86900; 86901; 87086; 87389; 88302-TC; 88304-TC; 93005; 93010; 93970-TC; 94010; 94760; 99285-25; A9537; A9579; J7030

== ENCOUNTER 2019-01-24 19:33 | Emergency (ER) | payer OTHER | END 2019-01-25 01:35 | disposition home or self-care (01) | LOC: JER 01-25 01:35 | PROC: 3E0333Z Introduction of Anti-inflammatory into Peripheral Vein, Percutaneous Approach (ICD-10-PCS; principal; 2019-01-24) | DX: K52.9 Noninfective gastroenteritis and colitis, unspecified (principal); D64.9 Anemia, unspecified ==

== ENCOUNTER 2019-05-07 08:10 | Day surgery (SDC) | payer OTHER ==
[2019-05-06 16:20] VITALS: BMI 27.6
[2019-05-07] MEDS ORDERED: CEFAZOLIN 1 GM/D5W 2 GM/100 ML BAG ONE (08:46)
[2019-05-07] MEDS ORDERED: MIDAZOLAM HCL 2 MG/2 ML SINGLE DOSE VIAL ONE (08:46)
[2019-05-07] MEDS ORDERED: ceFAZolin SODIUM 1 GM VIAL IVPB ONE (09:00)
[2019-05-07] MEDS ORDERED: IOHEXOL 300 MG/ML INFUS..BTL IV ONE (09:35)
[2019-05-07 10:02] VITALS: TEMP 97.9
[2019-05-07 11:07] VITALS: PULSE 61
[2019-05-07 11:37] VITALS: BP 106/62
== END 2019-05-07 12:05 | disposition home or self-care (01) ==
LOC: JASU-ENDO 08:10
PROVIDERS: ATTEND Internal Medicine Gastroenterology
PROC: 0FPB8DZ Removal of Intraluminal Device from Hepatobiliary Duct, Via Natural or Artificial Opening Endoscopic (ICD-10-PCS; 2019-05-07)
PROC: 0FB98ZX Excision of Common Bile Duct, Via Natural or Artificial Opening Endoscopic, Diagnostic (ICD-10-PCS; 2019-05-07)
PROC: 0FC98ZZ Extirpation of Matter from Common Bile Duct, Via Natural or Artificial Opening Endoscopic (ICD-10-PCS; principal; 2019-05-07 09:00)
DX: Z46.59 Encounter for fitting and adjustment of other gastrointestinal appliance and device (principal); K80.50 Calculus of bile duct without cholangitis or cholecystitis without obstruction
CPT/HCPCS: 76000-TC-FY; 81025

== ENCOUNTER 2021-09-01 13:30 | Emergency (ER) | payer OTHER ==
[2021-09-01 13:42] VITALS: BMI 30.7
[2021-09-01] MEDS ORDERED: SODIUM CHLORIDE 0.9% 500 ML INFUS.BAG IV ONE (14:12)
[2021-09-01 14:56] LABS: BASO % 0.8 % (0-2.0); HEMATOCRIT 28.7 % (32.4-45.2); HEMOGLOBIN 8.8 GM/dL (10.7-15.3); LYMPH % 29.2 % (8-40); MCH 19.5 pg (25.7-33.7); MCHC 30.7 g/dl (32.0-36.0); MEAN CELL VOLUME 63.5 fl (80-96); MEAN PLT VOLUME 8.8 fl (7.5-11.1); MONO % 7.6 % (3.8-10.2); NEUT % 60.4 % (42.8-82.8); PLATELET COUNT 152 10^3/uL (134-434); RBC 4.52 M/mm3 (3.60-5.2); RDW 18.9 % (11.6-15.6); WHITE BLOOD COUNT 4.6 K/mm3 (4.0-10.0)
[2021-09-01 15:00] LABS: HCG,QUALITATIVE URINE Negative
[2021-09-01 15:01] LABS: EPI CELLS >36 /uL (0-25.1); HYALINE CASTS 0 /uL (0-3.1); URINE APPEARANCE CLEAR; URINE BACTERIA 1522 /uL (0-1359); URINE BILIRUBIN NEGATIVE (NEGATIVE); URINE COLOR YELLOW; URINE GLUCOSE (UA) NEGATIVE (NEGATIVE); URINE KETONE NEGATIVE (NEGATIVE); URINE LEUK ESTERASE 1+ (NEGATIVE); URINE NITRITE NEGATIVE (NEGATIVE); URINE PROTEIN NEGATIVE (NEGATIVE); URINE RBC 17 /uL (0-23.9); URINE UROBILINOGEN 0.2 mg/dL (0.2-1.0); URINE WBC 17 /uL (0-25.8)
[2021-09-01 15:15] LABS: CALCIUM 8.2 mg/dL (8.5-10.1)
[2021-09-01 15:16] LABS: ALBUMIN 3.5 g/dl (3.4-5.0); BLOOD UREA NITROGEN 12.5 mg/dL (7-18)
[2021-09-01 15:19] LABS: CREATININE 0.5 mg/dL (0.55-1.3)
[2021-09-01 15:21] LABS: BILIRUBIN,TOTAL 0.2 mg/dL (0.2-1); TOT PROT 6.9 g/dl (6.4-8.2)
[2021-09-01 15:26] LABS: ANISOCYTOSIS 3+; MACROCYTOSIS 0
[2021-09-01 17:10] VITALS: BP 107/60; PULSE 62; TEMP 98.6
== END 2021-09-01 18:10 | disposition home or self-care (01) ==
LOC: JER 13:30
DX: K56.7 Ileus, unspecified (principal)
CPT/HCPCS: 36415; 71046-TC-FY; 74177-TC; 80053; 81003; 83690; 84703; 85025; 99285-25; Q9967

== ENCOUNTER 2022-01-15 09:59 | Emergency (ER) | payer OTHER ==
[2022-01-15 10:28] VITALS: BP 109/65; PULSE 55; RESP 18; TEMP 97.6; BMI 27.7
[2022-01-15] MEDS ORDERED: IBUPROFEN 600 MG TABLET (FP) PO ONE ×2 (11:28→11:34)
== END 2022-01-15 12:12 | disposition home or self-care (01) ==
LOC: JERFT 09:59 → JER 09:59 → JERFT 12:12
DX: B02.9 Zoster without complications (principal)
CPT/HCPCS: 99283-25